=== PATIENT | male | born 1965 | race Caucasian/White ===

== ENCOUNTER → 2019-10-04 10:10 | Outpatient (CLI) | payer MEDICARE, MEDICAID, SELFPAY ==
[2019-10-04 11:00] LABS: Basophils # 0.1 K/mm3 (0-0.2); Basophils % 0.8 % (0.1-2.0); Eosinophils # 0.2 K/mm3 (0.0-0.4); Eosinophils % 2.4 % (0.1-12.0); Hematocrit 40.4 % (42.0-52.0); Hemoglobin 14.3 g/dL (14.1-18.0); Lymphocytes # 2.5 K/mm3 (0.7-4.5); Lymphocytes % 33.9 % (10-50); Mean Corpuscular HGB Conc 35.3 g/dL (31.8-35.4); Mean Corpuscular Hemoglobin 32.2 pg (27.0-31.2); Mean Corpuscular Volume 91.1 fl (80-94); Mean Platelet Volume 7.9 fl (7.4-10.4); Monocytes # 0.5 K/mm3 (0.1-1.0); Monocytes % 6.5 % (1.7-9.3); Neutrophils # 4.2 K/mm3 (1.8-7.8); Neutrophils % 56.4 % (37.0-80.0); Platelet Count 164 K/mm3 (142-424); Red Blood Count 4.44 M/mm3 (4.60-6.20); White Blood Count 7.5 K/mm3 (4.8-10.8)
[2019-10-04 12:38] LABS: Chloride 96 mmol/L (98-107); Potassium 3.8 mmoL/L (3.5-5.1); Sodium 136 mmol/L (136-145)
[2019-10-04 12:40] LABS: Alanine Aminotransferase 29 U/L (12-78); Aspartate Amino Transferase 37 U/L (17-59); Blood Urea Nitrogen 35 mg/dl (9-20); Estimated Glomerular Filt Rate 58 ml/min (>60); GFR (African American) 70 ML/MIN (>60)
[2019-10-04 12:41] LABS: Albumin Level 4.3 g/dl (3.5-5.0); Albumin/Globulin Ratio 1.6 (1.1-1.8); Alkaline Phosphatase 47 U/L (38-126); Anion Gap 16.8 mEq/L (5-15); Bilirubin,Total 0.7 mg/dl (0.2-1.3); Calcium 10.8 mg/dl (8.4-10.2); Carbon Dioxide 27 mmol/L (22.0-30.0); Chol/HDL Ratio 3.9 (1-3.5); Cholesterol 154 mg/dl (140-200); Globulin 2.7 g/dL (1.3-3.2); Glucose 106 mg/dl (74-100); HDL Cholesterol 40 mg/dl (40-60); Triglycerides 349 mg/dl (30-150); VLDL Cholesterol 70 mg/dL (0-40)
[2019-10-04 12:52] LABS: Direct LDL Cholesterol 81.19 mg/dL (100-129)
[2019-10-04 15:48] LABS: Hemoglobin A1C 6.9 % (4.0-6.0)
== END ==
PROVIDERS: Visit Provider Internal Medicine
DX: E11.42 Type 2 diabetes mellitus with diabetic polyneuropathy (principal); E11.59 Type 2 diabetes mellitus with other circulatory complications; E78.5 Hyperlipidemia, unspecified; I10 Essential (primary) hypertension; I73.9 Peripheral vascular disease, unspecified; Z79.4 Long term (current) use of insulin
CPT/HCPCS: 36415; 80053; 80061; 83036; 85025

== ENCOUNTER → 2020-06-07 11:48 | Outpatient (CLI) | payer MEDICARE, MEDICAID, SELFPAY | PROVIDERS: PCP Internal Medicine; Visit Provider Internal Medicine | DX: G47.33 Obstructive sleep apnea (adult) (pediatric) (principal); G47.00 Insomnia, unspecified; I10 Essential (primary) hypertension; R40.0 Somnolence; R06.83 Snoring; E66.9 Obesity, unspecified | CPT/HCPCS: G0399 ==

== ENCOUNTER 2021-03-17 08:07 | Emergency (ER) | payer MEDICARE, MEDICAID, SELFPAY ==
[2021-03-17] VITALS (19 sets, daily range): BP systolic 60–213; BP diastolic 31–175; PULSE 70–98; RESP 16–24; TEMP 37–37.3; O2SAT 83–98; BMI 54.9
--- NOTE | 2021-03-17 08:10 | HMH.EDGENADL ---
ED Disposition Clinical Impression: Hyperkalemia, Acute electrocardiogram changes Sepsis Qualifiers: Sepsis type: sepsis due to unspecified organism Sepsis acute organ dysfunction status: with acute organ dysfunction Severe sepsis acute organ dysfunction type: acute renal failure Acute renal failure type: unspecified Severe sepsis shock status: with septic shock Qualified Code(s): A41.9 - Sepsis, unspecified organism DKA (diabetic ketoacidosis) Qualifiers: Diabetes mellitus type: type 2 Diabetes mellitus complication detail: without coma Qualified Code(s): E11.10 - Type 2 diabetes mellitus with ketoacidosis without coma Renal failure Qualifiers: Renal failure chronicity: acute Acute renal failure type: unspecified Qualified Code(s): N17.9 - Acute kidney failure, unspecified Disposition: Xfer Short-Term Hosp Condition on Discharge: Critical Referrals: Provider,Referral, MD [Referring] - Forms: Transfer Record - ED Time of Disposition: 10:14 - Critical Care Critical Care Time: Yes Attestation: On , the high probability of a clinically significant, sudden or life threatening deterioration of the following system(s) required my full and direct attention, intervention and personal management. The time I documented below is in addition to time spent performing reported procedures but includes the following listed in this critical care notation. Total Critical Care Time: 185 Vital system(s) involved:: Circulatory Failure, Metabolic Failure, Renal Failure, Shock (Septic) My critical care processes included: Assessment & monitoring of V/S, Initial and Re-exams, Data Review/Interpretation, Coordinating Care, Medication Orders and management, Documentation Medical Decision Making - Medical Records Medical records reviewed: Yes: I reviewed the patient's medical records. - Kyrie Inquiry Pt receiving controlled substance: No Vital Signs: 03/17/21 08:08 03/17/21 09:08 03/17/21 09:14 Temperature 99.1 F Temperature Source Oral Pulse Rate 91 H 71 Pulse Rate [Right] 95 H Respiratory Rate 18 18 23 Blood Pressure 213/175 H 91/31 L Blood Pressure [Right Arm] 169/100 H Blood Pressure Mean 51 Blood Pressure Mean [Right Arm] 123 Blood Pressure Source Blood Pressure Position 02 Sat by Pulse Oximetry 97 91 L 83 L Oxygen Delivery Method Room Air Oxygen Flow Rate (LPM) 03/17/21 09:17 03/17/21 09:47 03/17/21 09:54 Temperature Temperature Source Pulse Rate 70 91 H 91 H Pulse Rate [Right] Respiratory Rate 20 22 20 Blood Pressure 96/39 L 108/42 L 108/42 L Blood Pressure [Right Arm] Blood Pressure Mean 53 Blood Pressure Mean [Right Arm] Blood Pressure Source Automatic Cuff Blood Pressure Position Supine 02 Sat by Pulse Oximetry 95 90 L Oxygen Delivery Method Nasal Cannula Room Air Oxygen Flow Rate (LPM) 03/17/21 10:23 03/17/21 10:48 03/17/21 10:50 Temperature Temperature Source Pulse Rate 93 H 95 H 96 H Pulse Rate [Right] Respiratory Rate 18 18 Blood Pressure 92/61 L 60/32 L 80/33 L Blood Pressure [Right Arm] Blood Pressure Mean 42 Blood Pressure Mean [Right Arm] Blood Pressure Source Blood Pressure Position 02 Sat by Pulse Oximetry 96 95 Oxygen Delivery Method Nasal Cannula Nasal Cannula Nasal Cannula Oxygen Flow Rate (LPM) 2 2 03/17/21 11:02 03/17/21 11:11 03/17/21 11:23 Temperature Temperature Source Pulse Rate 96 H 98 H Pulse Rate [Right] Respiratory Rate 16 Blood Pressure 99/49 L 110/39 L 109/79 L Blood Pressure [Right Arm] Blood Pressure Mean 56 59 89 Blood Pressure Mean [Right Arm] Blood Pressure Source Blood Pressure Position 02 Sat by Pulse Oximetry 97 Oxygen Delivery Method Oxygen Flow Rate (LPM) 03/17/21 11:41 03/17/21 12:01 03/17/21 12:45 Temperature Temperature Source Pulse Rate 94 H 90 Pulse Rate [Right] Respiratory Rate 18 20 22 Blood Pressure 136/93 H 107/43 L
--- NOTE | 2021-03-17 08:24 | ECG_ITS ---
APPROVED REPORT Exam: Resting ECG HR:92 bpm ECG Measurements Heart Rate 92 AXES MD 196 P 83 QRSd 108 QRS -54 QT 404 T 68 QTc 499 Conclusion Normal sinus rhythm Left axis deviation Pulmonary disease pattern Prolonged QT Abnormal ECG Electronically signed by : Roberto Maher MD 03/18/2021 11:38:56
[2021-03-17 08:45] LABS: Basophils # 0.1 K/mm3 (0-0.2); Basophils % 0.4 % (0.1-2.0); Eosinophils # 0.1 K/mm3 (0.0-0.4); Eosinophils % 0.6 % (0.1-12.0); Hematocrit 37.9 % (42.0-52.0); Hemoglobin 12.8 g/dL (14.1-18.0); Lymphocytes # 2.6 K/mm3 (0.7-4.5); Lymphocytes % 14.4 % (10-50); Mean Corpuscular HGB Conc 33.8 g/dL (31.8-35.4); Mean Corpuscular Volume 94.9 fl (80-94); Mean Platelet Volume 8.2 fl (7.4-10.4); Monocytes # 1.9 K/mm3 (0.1-1.0); Monocytes % 10.3 % (1.7-9.3); Neutrophils # 13.4 K/mm3 (1.8-7.8); Neutrophils % 74.3 % (37.0-80.0); Platelet Count 207 K/mm3 (142-424); Red Cell Distribution Width 14.1 % (11.5-17.5)
[2021-03-17 08:47] LABS: MANUAL DIFFERENTIAL MANUAL DIFFERENTIAL (MANUAL DIFF)
[2021-03-17 08:50] LABS: Chloride 90 mmol/L (98-107); Potassium 5.9 mmoL/L (3.5-5.1); Sodium 130 mmol/L (136-145)
[2021-03-17 08:52] LABS: Alanine Aminotransferase 42 U/L (12-78); Aspartate Amino Transferase 39 U/L (17-59)
[2021-03-17 08:53] LABS: Albumin Level 3.9 g/dl (3.5-5.0); Albumin/Globulin Ratio 1.4 (1.1-1.8); Alkaline Phosphatase 68 U/L (38-126); Anion Gap 34.9 mEq/L (5-15); Bilirubin,Total 1.1 mg/dl (0.2-1.3); Calcium 7.6 mg/dl (8.4-10.2); Carbon Dioxide 11 mmol/L (22.0-30.0); Globulin 2.7 g/dL (1.3-3.2); Glucose 344 mg/dl (74-100); Total Protein,Serum 6.6 g/dl (6.3-8.2)
[2021-03-17 08:57] LABS: Eosinophils % 1 % (0-3); Lymphocytes % 12 % (10-50); Monocytes % 13 % (2-9); Neutrophils % 73 % (42-76); Platelet Estimate Normal; Total Cells Counted 100
[2021-03-17 08:58] LABS: Hypochromasia 1+; Macrocytosis 1+
[2021-03-17 09:07] LABS: Blood Urea Nitrogen 117 mg/dl (9-20); Creatinine Clearance Estimated 6 mL/min (50-200); Estimated Glomerular Filt Rate 4 ml/min (>60); GFR (African American) 4 ML/MIN (>60); Lactic Acid 5.5 mmol/L (0.7-2.1); Troponin I < 0.01 ng/ml (0.00-0.034)
--- NOTE | 2021-03-17 09:10 | CT_ITS ---
PROCEDURE: CT ABDOMEN PELVIS WO CON CLINICAL INDICATION: c/o rectal abscess COMPARISON: No exams were available for comparison TECHNIQUE: Axial images obtained with sagittal and coronal reformats. All CT scans at the facility use one or more dose reduction, viz: automated exposure control, ma/kV adjustment per patient size (including targeted exams where dose is matched to indication, i.e. head), or iterative reconstruction technique. FINDINGS: LOWER THORAX: Atelectatic changes are present in the lung bases. There is mild pericardial thickening. ABDOMEN & PELVIS: Liver has a somewhat irregular contour consistent with cirrhosis. The gallbladder is distended with multiple stones. There is splenomegaly at 15 cm. The adrenal glands, pancreas, and kidneys have an unremarkable appearance. Mesenteric and retroperitoneal varices are noted. No evidence of appendicitis or diverticulitis. No evidence of perirectal abscess. Evaluation of the rectum and bowel is limited without IV and oral contrast. No acute bony anomalies. IMPRESSION: 1. No evidence of perirectal abscess. Evaluation of the bowel and solid organs is limited without IV and oral contrast. 2. 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 Cholelithiasis with distended gallbladder Dictated by: Loyd Christensen MD 03/17/2021 10:25 Loyd Christensen MD in [place] 03/17/2021 10:25
--- NOTE | 2021-03-17 09:11 | PC.NURSE ---
ER physician aware of critical labs
--- NOTE | 2021-03-17 09:14 | PC.NURSE ---
contacting [facility] per ER request
--- NOTE | 2021-03-17 09:21 | PC.NURSE ---
TERRY NI speaking with [facility] at this time
--- NOTE | 2021-03-17 09:22 | PC.NURSE ---
[facility] States they area on divert
--- NOTE | 2021-03-17 09:24 | PC.NURSE ---
contacted [facility] in [place], [facility] they are placing pts on wait list.
--- NOTE | 2021-03-17 09:25 | PC.NURSE ---
contacted [facility], bed placement staff states they are closed to all levels of care at this time .
--- NOTE | 2021-03-17 09:31 | PC.NURSE ---
Contacted [facility], waiting instrumentation designer back from them
--- NOTE | 2021-03-17 09:31 | HMH.ITSTN ---
dr thompson suggested iv and oral,patients labs are out of range, spoke to dr mc wanted scan done w/o for a quick transfer
[2021-03-17 09:37] LABS: Coronavirus 19, PCR Not Detected (NotDetected); Influenza A, PCR Not Detected (NotDetected); Influenza B, PCR Not Detected (NotDetected)
--- NOTE | 2021-03-17 09:51 | PC.NURSE ---
TERRY NI speaking with Dr. Jorgensen at [facility] at this time.
--- NOTE | 2021-03-17 09:55 | PC.NURSE ---
pt to Ct with miranda riggs and rad staff.
--- NOTE | 2021-03-17 10:16 | PC.NURSE ---
Returned from CT at this time with patient. Patient was transferred with [facility] with cardiac monitoring
--- NOTE | 2021-03-17 10:56 | PC.NURSE ---
spoke with arpita at [facility] at this time, to notify that pt ct scan has been read, this was per ER MD request per Dr. Jorgensen's request. States she is going to page Dr. Jorgensen back again to speak with ER . notified TERRY NI of the above
--- NOTE | 2021-03-17 11:07 | PC.NURSE ---
spoke with marisol again at this time at [facility], states that dr. pratt has been given the message about pt ct scan, states he is accepted the pt and does not speak with ER MD again. Marisol states she is going to work on bed placement for pt, states bed are tight and will hopefully have a bed this afternoon for pt. notified ER of the above.
--- NOTE | 2021-03-17 11:10 | ECG_ITS ---
APPROVED REPORT Exam: Resting ECG HR:194 bpm ECG Measurements Heart Rate 194 AXES QRSd 174 QRS -81 QT 218 T 86 QTc 391 Conclusion Wide QRS tachycardia with frequent premature ventricular complexes in a pattern of bigeminy Left axis deviation Right bundle branch block Abnormal ECG Electronically signed by : Roberto Maher MD 03/18/2021 11:38:53
--- NOTE | 2021-03-17 11:21 | PC.NURSE ---
contacted [facility], states they area at capacity
[2021-03-17 11:24] LABS: POC Glucose,Bedside 356 (70-110)
--- NOTE | 2021-03-17 11:33 | PC.NURSE ---
waiting on a call back from about possible transfer.
[2021-03-17 11:35] LABS: Albumin Level 4.1 g/dl (3.5-5.0); Anion Gap 34.4 mEq/L (5-15); Calcium 7.4 mg/dl (8.4-10.2); Carbon Dioxide 11 mmol/L (22.0-30.0); Chloride 90 mmol/L (98-107); Glucose 354 mg/dl (74-100); Phosphorous 12.3 mg/dl (2.5-4.5); Sodium 128 mmol/L (136-145)
--- NOTE | 2021-03-17 11:37 | PC.NURSE ---
stopped vancomycin for allow calcium to infuse
[2021-03-17 11:41] LABS: Creatinine Clearance Estimated 7 mL/min (50-200); Estimated Glomerular Filt Rate 4 ml/min (>60); GFR (African American) 4 ML/MIN (>60)
--- NOTE | 2021-03-17 11:43 | PC.NURSE ---
nicole in lab called it critical labs verified name and K 7.4 bun 114 creat 14 notified TERRY NI
[2021-03-17 11:44] LABS: Blood Urea Nitrogen 114 mg/dl (9-20); Potassium 7.4 mmoL/L (3.5-5.1)
--- NOTE | 2021-03-17 12:00 | PC.NURSE ---
contacted [facility], states they are expected discharges but no bed available at this time, call back around 2-3 pm
--- NOTE | 2021-03-17 12:05 | PC.NURSE ---
TERRY NI speaking with Dr Pearl at [facility] at this time
--- NOTE | 2021-03-17 12:37 | PC.NURSE ---
Ronnie from transfer center stated the patient was accepted but still does not have a bed placement. Ronnie requested [facility] to fax patient face sheet. Face sheet faxed at this time
[2021-03-17 12:40] LABS: Reflex Lactic Add Lactic Reflex
--- NOTE | 2021-03-17 12:45 | PC.NURSE ---
Pharmacy stated insulin and Vancomycin are compatible
[2021-03-17 12:50] LABS: ABG Base Excess -15.3 mmol/L (-2.4-2.3); ABG HCO3 11.7 mmhg (22.0-26.0); ABG Oxygen Saturation 93 % (90-100); ABG PCO2 26.4 mmhg (35.0-45.0); ABG PH 7.27 mmol/L (7.35-7.45); ABG TCO2 12.5 mmhg (23-27)
[2021-03-17 12:53] LABS: Allen's Test ACCEPTABLE; Oxygen ROOM AIR %; Source R BRACHIAL
--- NOTE | 2021-03-17 12:54 | PC.NURSE ---
ER physician aware of ABG results
--- NOTE | 2021-03-17 13:25 | PC.NURSE ---
Gave report to Karri [facility] at [facility]
[2021-03-17 13:29] LABS: Chloride 91 mmol/L (98-107); Sodium 129 mmol/L (136-145)
--- NOTE | 2021-03-17 13:31 | PC.NURSE ---
contacted [employer] to request a flight for transfer of pt.
[2021-03-17 13:32] LABS: Anion Gap 35.1 mEq/L (5-15)
[2021-03-17 13:33] LABS: Calcium 7.3 mg/dl (8.4-10.2); Glucose 334 mg/dl (74-100)
--- NOTE | 2021-03-17 13:33 | PC.NURSE ---
[employer] accepted flight, 21 min ETA plus lift off
--- NOTE | 2021-03-17 13:36 | PC.NURSE ---
FACE SHEET FAXED AGAIN PER JIN FROM [facility]
[2021-03-17 13:40] LABS: Carbon Dioxide 10 mmol/L (22.0-30.0); Creatinine Clearance Estimated 7 mL/min (50-200); Estimated Glomerular Filt Rate 4 ml/min (>60); GFR (African American) 5 ML/MIN (>60)
[2021-03-17 13:41] LABS: Blood Urea Nitrogen 126 mg/dl (9-20); Potassium 7.1 mmoL/L (3.5-5.1)
--- NOTE | 2021-03-17 13:41 | PC.NURSE ---
madi in lab called with critical results on pt K 7.1 BUN 126 Creat 13.6 Lactic acid 4.1 notified ER of results
[2021-03-17 13:42] LABS: Lactic Acid Follow Up (RFLX 1) 4.1 mmol/L (0.7-2.1)
--- NOTE | 2021-03-17 14:11 | ECG_ITS ---
APPROVED REPORT Exam: Resting ECG HR:95 bpm ECG Measurements Heart Rate 95 AXES AL 202 P 76 QRSd 110 QRS -53 QT 394 T 77 QTc 495 Conclusion Normal sinus rhythm Left axis deviation Low voltage QRS Incomplete left bundle branch block Prolonged QT Abnormal ECG Electronically signed by : Roberto Maher MD 03/18/2021 11:38:40
[2021-03-17 14:23] LABS: POC Glucose,Bedside 361 (70-110)
--- NOTE | 2021-03-17 14:25 | PC.NURSE ---
[facility] at [facility]
--- NOTE | 2021-03-17 14:54 | PC.NURSE ---
[facility] aware of paper work being left at [facility]. Paperwork will be faxed
[2021-03-17 15:23] LABS: Reflex Lactic (2 hrs) Add Lactic Reflex
== END 2021-03-17 14:48 | disposition short-term general hospital (02) ==
PROVIDERS: Emergency Provider Family Medicine; PCP Internal Medicine
DX: N17.9 Acute kidney failure, unspecified (principal); A41.9 Sepsis, unspecified organism; E11.10 Type 2 diabetes mellitus with ketoacidosis without coma; E87.5 Hyperkalemia; I10 Essential (primary) hypertension; E78.5 Hyperlipidemia, unspecified; F17.210 Nicotine dependence, cigarettes, uncomplicated; Z79.899 Other long term (current) drug therapy; F41.9 Anxiety disorder, unspecified; Z11.52 Encounter for screening for COVID-19
CPT/HCPCS: 74176; 80048; 80053; 80069; 82803; 82962; 83605; 84484; 85007; 85025; 87040; 93005; 96365; 99285; C1751; J0692; J3370; U0003

== ENCOUNTER 2021-04-26 16:30 | Emergency (ER) | payer MEDICARE, MEDICAID, SELFPAY ==
[2021-04-26] VITALS (18 sets, daily range): BP systolic 62–132; BP diastolic 26–47; PULSE 78–87; RESP 14–16; TEMP 36.7; O2SAT 91–97; BMI 47.8
--- NOTE | 2021-04-26 17:08 | HMH.EDGENADL ---
ED Disposition Clinical Impression: BRENDA (acute kidney injury) Hypotension Qualifiers: Hypotension type: unspecified hypotension type Qualified Code(s): I95.9 - Hypotension, unspecified Disposition: Xfer Short-Term Hosp Condition on Discharge: Fair Referrals: Jam Torres [Primary Care Provider] - Time of Disposition: 19:39 - Critical Care Critical Care Time: Yes Attestation: On 04/26/21, the high probability of a clinically significant, sudden or life threatening deterioration of the following system(s) required my full and direct attention, intervention and personal management. The time I documented below is in addition to time spent performing reported procedures but includes the following listed in this critical care notation. Total Critical Care Time: 35 Vital system(s) involved:: Circulatory Failure, Renal Failure My critical care processes included: Assessment & monitoring of V/S, Initial and Re-exams, Data Review/Interpretation, Coordinating Care, Medication Orders and management, Documentation Medical Decision Making - Medical Records Medical records reviewed: Yes: I reviewed the patient's medical records. - Kyrie Inquiry Pt receiving controlled substance: No Vital Signs: 04/26/21 16:31 Temperature 98.1 F Temperature Source Oral Pulse Rate [Left Radial] 82 Respiratory Rate 15 Blood Pressure [Right Arm] 78/40 L Blood Pressure Mean [Right Arm] 52 Blood Pressure Source [Right Arm] Automatic Cuff Blood Pressure Position [Right Arm] Sitting 02 Sat by Pulse Oximetry 91 L Oxygen Delivery Method Room Air - Lab Data Lab Results 04/26/21 17:00: WBC 14.8 H, RBC 4.44 L, Hgb 14.0 L, Hct 42.9, MCV 96.7 H, MCH 31.5 H, MCHC 32.6, RDW 14.2, Plt Count 310, MPV 7.7, Neut % (Auto) 66.5, Lymph % (Auto) 24.8, [place] % (Auto) 7.7, Eos % (Auto) 0.4, Baso % (Auto) 0.6, Neut # (Auto) 9.8 H, Lymph # (Auto) 3.7, [place] # (Auto) 1.1 H, Eos # (Auto) 0.1, Baso # (Auto) 0.1 04/26/21 17:00: Sodium 134 L, Potassium 6.1 H*, Chloride 91 L, Carbon Dioxide 14 L, Anion Gap 35.1 H, BUN 110 H*, Creatinine 10.70 H, Estimated Creat Clear 10, Estimated GFR 5 L*, Est GFR ( Amer) 6 L*, Glucose 201 H, Calcium 9.8, NT-Pro-B Natriuret Pep 1200 H Result diagrams: 04/26/21 17:00 04/26/21 17:00 Orders (Tests/Meds): ED MEDICATIONS Generic Name Dose Route Start Last Admin Trade Name Freq PRN Reason Stop Dose Admin Sodium Chloride 1,000 mls @ 999 mls/hr 04/26/21 18:00 Sod Chlor 0.9% 1000ml Bag IV 04/26/21 19:00 .Q1H1M PRACHI Norepinephrine Bitartrate 8 mg 258 mls @ 3.87 mls/hr 04/26/21 20:15 / Dextrose IV 05/26/21 20:14 .Q24H PRACHI Protocol 2 MCG/MIN ORDERS Category Date Time Status Rapid PCR Covid and Flu A/B Stat Lab 04/26/21 17:52 Ordered Urinalysis and Microscopic Stat Lab 04/26/21 17:52 Ordered Medical Decision Narrative: 55yo M evaluated by hypotension. Patient is in no acute distress on initial evaluation and states he feels well. He is agreeable to a modest work-up and monitoring of his blood pressure. EKG obtained and reviewed as above. Patient CBC is largely unremarkable. His metabolic panel demonstrates potassium of 6.1, patient's creatinine is over 10. Patient sent for a CT of the abdomen pelvis without contrast to rule out any urinary obstruction. Patient is receiving 1 L of normal saline. Patient's BNP is elevated at 1200 making it difficult to give him large volumes of fluid as it will only worsen his congestive heart failure. Patient will likely need dialysis and therefore have to be transferred. Staff are working on finding the patient in excepting facility/physician at this time. Case discussed with Dr. Gardner at [facility]. He accepts the patient for transfer for ICU given the patient's map and acute renal failure. Pending bed placement at this time. Started on Norepi as his map has not improved w/ fluids. General Adult HPI - General Chief complaint: PAIN State
[2021-04-26 17:22] LABS: Basophils # 0.1 K/mm3 (0-0.2); Basophils % 0.6 % (0.1-2.0); Eosinophils # 0.1 K/mm3 (0.0-0.4); Eosinophils % 0.4 % (0.1-12.0); Hematocrit 42.9 % (42.0-52.0); Lymphocytes # 3.7 K/mm3 (0.7-4.5); Lymphocytes % 24.8 % (10-50); Mean Corpuscular HGB Conc 32.6 g/dL (31.8-35.4); Mean Corpuscular Hemoglobin 31.5 pg (27.0-31.2); Mean Corpuscular Volume 96.7 fl (80-94); Mean Platelet Volume 7.7 fl (7.4-10.4); Monocytes # 1.1 K/mm3 (0.1-1.0); Monocytes % 7.7 % (1.7-9.3); Neutrophils # 9.8 K/mm3 (1.8-7.8); Neutrophils % 66.5 % (37.0-80.0); Platelet Count 310 K/mm3 (142-424); Red Blood Count 4.44 M/mm3 (4.60-6.20); Red Cell Distribution Width 14.2 % (11.5-17.5); White Blood Count 14.8 K/mm3 (4.8-10.8)
[2021-04-26 17:23] LABS: Chloride 91 mmol/L (98-107); Sodium 134 mmol/L (136-145)
[2021-04-26 17:26] LABS: Anion Gap 35.1 mEq/L (5-15); Carbon Dioxide 14 mmol/L (22.0-30.0); Creatinine Clearance Estimated 10 mL/min (50-200); Estimated Glomerular Filt Rate 5 ml/min (>60); GFR (African American) 6 ML/MIN (>60)
[2021-04-26 17:27] LABS: Calcium 9.8 mg/dl (8.4-10.2); Glucose 201 mg/dl (74-100)
[2021-04-26 17:36] LABS: NT Pro Brain Natriuretic Pep. 1200 pg/mL (0-125)
[2021-04-26 17:37] LABS: Blood Urea Nitrogen 110 mg/dl (9-20); Potassium 6.1 mmoL/L (3.5-5.1)
--- NOTE | 2021-04-26 17:39 | PC.NURSE ---
Lab called and spoke with Margie Iqbal RN to notify of labs. Potassium 6.1; BUN 110; Creatinine 10.7 MD notified of lab results.
--- NOTE | 2021-04-26 17:52 | ECG_ITS ---
APPROVED REPORT Exam: Resting ECG HR:82 bpm ECG Measurements Heart Rate 82 AXES AR 160 P 47 QRSd 96 QRS -45 QT 404 T 59 QTc 472 Conclusion Normal sinus rhythm Low voltage QRS Left anterior fascicular block Late r wave progression Abnormal ECG Electronically signed by : Roberto Maher MD 04/27/2021 07:28:57
--- NOTE | 2021-04-26 17:52 | CT_ITS ---
PROCEDURE INFORMATION: Exam: CT Abdomen And Pelvis Without Contrast Exam date and time: 04/26/2021 5:52 PM Age: 55 years old Clinical indication: Condition or disease; Kidney or ureter condition; Acute renal insufficiency; Patient HX: Renal failure, R/O obstruction TECHNIQUE: Imaging protocol: Computed tomography of the abdomen and pelvis without contrast. Radiation optimization: All CT scans at this facility use at least one of these dose optimization techniques: automated exposure control; mA and/or kV adjustment per patient size (includes targeted exams where dose is matched to clinical indication); or iterative reconstruction. COMPARISON: CT ABDOMEN PELVIS WO CON 03/17/2021 9:59 AM FINDINGS: Limitations: The lateral aspect of the right abdominal wall and peritoneum as well as right abdominal small bowel loops are incompletely imaged. Lungs: Scattered linear opacities in the visualized lung bases likely represent subsegmental atelectasis and/or scarring. There is a calcified granuloma in the left lower lobe. Liver: The liver is cirrhotic in morphology. Gallbladder and bile ducts: Numerous layering gallstones are present in the gallbladder. No biliary ductal dilatation. Pancreas: Unremarkable. Spleen: The spleen is enlarged measuring 15.5 cm. Splenic densities likely represent calcified granulomas. Adrenal glands: No adrenal nodule. Kidneys and ureters: No hydronephrosis or calculi. Stomach and bowel: The visualized bowel is unremarkable without evidence of obstruction. Appendix: The appendix is normal. Intraperitoneal space: No free air or fluid in the visualized peritoneum. Vasculature: The abdominal aorta is normal in caliber with mild atherosclerosis. Varices are present in the abdomen and pelvis. Lymph nodes: There are enlarged left inguinal lymph nodes and an enlarged right external iliac lymph node, unchanged. Unchanged lymph nodes in the region of the joce hepatis. Urinary bladder: There is bladder wall thickening with perivesicular fat stranding. Reproductive: Unremarkable as visualized. Reproductive: Unremarkable as visualized. Bones/joints: No acute fracture. There are multilevel degenerative changes of the spine. Soft tissues: There are small fat containing inguinal hernias. There are linear areas of subcutaneous emphysema within the anterior abdominal wall which may represent intravenous gas. IMPRESSION: 1. No renal calculi or hydronephrosis. 2. Cirrhosis with stigmata of portal hypertension including splenomegaly and varices.
--- NOTE | 2021-04-26 20:08 | PC.NURSE ---
Dr. Otto spoke to [facility] Dr. Gardner who has accepted patient, they will call when a bed is available
[2021-04-26 20:15] LABS: Coronavirus 19, PCR Not Detected (NotDetected); Influenza A, PCR Not Detected (NotDetected); Influenza B, PCR Not Detected (NotDetected)
--- NOTE | 2021-04-26 20:38 | PC.NURSE ---
started norepinephrine started @ 8mcg
--- NOTE | 2021-04-26 22:25 | PC.NURSE ---
multiple attempts to start 2nd iv line attempted, unsuccessful.
[2021-04-27] VITALS (79 sets, daily range): BP systolic 71–160; BP diastolic 27–123; PULSE 74–100; RESP 13–23; O2SAT 87–98
--- NOTE | 2021-04-27 00:19 | PC.NURSE ---
decreased norepinephrine gtt to 6mcg/hr
--- NOTE | 2021-04-27 02:36 | PC.NURSE ---
0145 - new IV obtained by JORI Almanzar at this time. #22g left forearm.
--- NOTE | 2021-04-27 02:46 | PC.NURSE ---
Lynnette from [place] transfer [facility] for update of bed availability
--- NOTE | 2021-04-27 05:42 | PC.NURSE ---
@ 0515 titrated Levophed down 4 mcg
--- NOTE | 2021-04-27 06:37 | PC.NURSE ---
titrated Levophed down 2 mcg
--- NOTE | 2021-04-27 07:52 | PC.NURSE ---
MEDICAL SALES CONSULTANT at attempting to obtain ultrasound guided IV access on pt
--- NOTE | 2021-04-27 07:55 | PC.NURSE ---
breakfast tray ordered for pt
[2021-04-27 08:00] LABS: Anion Gap 30.5 mEq/L (5-15); Calcium 9.3 mg/dl (8.4-10.2); Carbon Dioxide 17 mmol/L (22.0-30.0); Chloride 93 mmol/L (98-107); Creatinine Clearance Estimated 9 mL/min (50-200); Estimated Glomerular Filt Rate 5 ml/min (>60); GFR (African American) 6 ML/MIN (>60); Potassium 5.5 mmoL/L (3.5-5.1); Sodium 135 mmol/L (136-145)
[2021-04-27 08:03] LABS: Blood Urea Nitrogen 119 mg/dl (9-20)
[2021-04-27 08:04] LABS: Glucose 28 mg/dl (74-100)
--- NOTE | 2021-04-27 08:04 | PC.NURSE ---
lab called to with critical BUN and glucose on pt, name and verified notified ER , verbal order for half amp d50 obtained from Dr. Otto.
--- NOTE | 2021-04-27 08:08 | PC.NURSE ---
levophed drip stopped
--- NOTE | 2021-04-27 08:09 | PC.NURSE ---
Fidel [facility] they advised a committee would meet at 9 to discuss who needs a bed the most and would callk us back when they know something.
--- NOTE | 2021-04-27 08:10 | PC.NURSE ---
pt given a meal tray
[2021-04-27 08:18] LABS: Basophils # 0.1 K/mm3 (0-0.2); Basophils % 0.6 % (0.1-2.0); Eosinophils # 0.1 K/mm3 (0.0-0.4); Eosinophils % 0.6 % (0.1-12.0); Hematocrit 38.7 % (42.0-52.0); Hemoglobin 12.6 g/dL (14.1-18.0); Lymphocytes # 3.6 K/mm3 (0.7-4.5); Lymphocytes % 27.1 % (10-50); Mean Corpuscular HGB Conc 32.5 g/dL (31.8-35.4); Mean Corpuscular Hemoglobin 31.6 pg (27.0-31.2); Mean Corpuscular Volume 97.1 fl (80-94); Mean Platelet Volume 7.8 fl (7.4-10.4); Monocytes # 1.2 K/mm3 (0.1-1.0); Monocytes % 8.8 % (1.7-9.3); Neutrophils # 8.5 K/mm3 (1.8-7.8); Neutrophils % 62.9 % (37.0-80.0); Platelet Count 224 K/mm3 (142-424); Red Blood Count 3.99 M/mm3 (4.60-6.20); Red Cell Distribution Width 14.3 % (11.5-17.5); White Blood Count 13.4 K/mm3 (4.8-10.8)
--- NOTE | 2021-04-27 08:44 | PC.NURSE ---
spoke with Aure at [facility] at this time, she called for a pt update. States they a meeting around 11am each day to discuss pts on waiting list. States she will call back with a bed status update after that meeting. States if pt has any condition changes to please let them know.
--- NOTE | 2021-04-27 10:19 | ECG_ITS ---
APPROVED REPORT Exam: Resting ECG HR:85 bpm ECG Measurements Heart Rate 85 AXES WA 204 P 66 QRSd 100 QRS -35 QT 412 T 70 QTc 490 Conclusion Normal sinus rhythm Left axis deviation Low voltage QRS Prolonged QT Abnormal ECG Electronically signed by : Roberto Maher MD 04/27/2021 20:34:05
--- NOTE | 2021-04-27 12:47 | PC.NURSE ---
called [facility] about bed placement, they have no icu beds and have not discharged any, they will call back this afternoon with update.
--- NOTE | 2021-04-27 14:30 | PC.NURSE ---
PT PULLED OUT IV
--- NOTE | 2021-04-27 14:31 | PC.NURSE ---
LEVOPHED DRIP RESTARTED DUE TO B/P OF 71/39
--- NOTE | 2021-04-27 15:39 | PC.NURSE ---
JORI Griffith spoke with Dr. Wolfe and advsied him pt would need a central line at this time. Dr. Wolfe agreed and advised he would be in to do the procedure. Macey spoke with JORI Henriquez and advised her to come to ED to help Dr. Wolfe with procedure.
--- NOTE | 2021-04-27 16:25 | PC.NURSE ---
Dr. Wolfe at [facility] for central line placement
--- NOTE | 2021-04-27 16:47 | PC.NURSE ---
pt ludmilaet given to brother
--- NOTE | 2021-04-27 16:49 | XR_ITS ---
PROCEDURE: Chest portable CLINICAL INDICATION: Central line insertion COMPARISON: No exams were available for comparison FINDINGS: An AP portable view of the chest is very limited technically due to under penetration and malpositioning. Borderline cardiomegaly with mild prominence of the mediastinum. No large pneumothoraces apparent. No central line identified IMPRESSION: No acute finding Dictated by: Loyd Christensen MD 05/03/2021 07:44 Loyd Christensen MD in [facility] 05/03/2021 07:44
--- NOTE | 2021-04-27 17:14 | XR_ITS ---
PROCEDURE INFORMATION: Exam: XR Chest Exam date and time: 04/27/2021 5:14 PM Age: 55 years old Clinical indication: Device placement; Other: Central line placement; Patient HX: Obesity TECHNIQUE: Imaging protocol: XR of the chest. Views: 1 view. COMPARISON: CR (CHEST, CXR AP LANDSCAPE) 04/27/2021 4:49 PM FINDINGS: Limitations: Large body habitus severely attenuates image, degrading resolution. Tubes, catheters and devices: Catheter vs tubing or wire projects over the right lower chest with densely opacified 12 mm focus near the tip. No recognizable PICC is evident. Lungs: Unchanged. Pleural spaces: No pleural effusion. No pneumothorax. Heart/Mediastinum: Cardiomediastinal silouhette is unchanged. Bones/joints: No acute osseous abnormality. Soft tissues: Unremarkable. IMPRESSION: Catheter vs tubing or wire projects over the right lower chest with densely opacified 12 mm focus near the tip that is not well evaluated due to limitations detailed above. No recognizable PICC is evident.
--- NOTE | 2021-04-27 17:33 | HMH.GSCON ---
*Admission Date: 04/26/21 *Reason for consult:: Central line placement *History of present illness: Patient is a 55-year-old obese diabetic male from [place] who has had previous lower extremity amputation. He presented with hypotension and renal failure. He has been accepted as a transfer for possible dialysis. However at this point bed is unavailable. He is on Levophed drip. All IV access was lost and peripheral IV access was and able to be reestablished. Surgical consultation was obtained for central line placement. Review of Systems - Review of Systems Review of systems:: unable to obtain [facility] History I have reviewed the patient's past medical history: Yes Medical History: Reports:: Anxiety, Diabetes Mellitus Type 2, Hyperlipidemia, Hypertension, Lung Disease, Peripheral Vascular Disease Denies:: Diabetes Mellitus Type 1, Internal Pacemaker, Seizures *Have you ever received a pneumonia vaccine?: No *Have you received a flu vaccine this season?: No Other Surgeries: Yes: Colonoscopy. No: Pacemaker Amputation: Yes (Right BKA) - *Social History Smoking Status: Current every day smoker # Packs/Day (cigarettes): 1 Alcohol Intake: never Substance Use Type: denies use *Occupational Status:: unemployed *Travel in the last 8 weeks: None - Psychiatric History Pschychiatric History:: Reports:: Anxiety Family Hx:: No significant family history Meds Home Medications Medication Instructions Recorded Confirmed Type clonazepam 0.5 mg tablet 0.5 mg PO DAILY tab 07/12/18 09/02/18 History cyclobenzaprine 10 mg tablet 10 mg PO TID 07/12/18 09/02/18 History dulaglutide 0.75 mg/0.5 mL 0.75 mg SQ QWEEK 07/12/18 09/02/18 History subcutaneous pen injector furosemide 40 mg tablet 40 mg PO TID tab 07/12/18 09/02/18 History hydrocodone 10 mg-acetaminophen 1 tab PO QID PRN 07/12/18 09/02/18 History 325 mg tablet insulin glargine 100 unit/mL 10 unit SQ DAILY 07/12/18 09/02/18 History subcutaneous solution insulin lispro 100 unit/mL 15 unit SQ QHS 07/12/18 09/02/18 History subcutaneous cartridge insulin lispro protamine-lispro 15 unit SQ BID 07/12/18 09/02/18 History 100 unit/mL (75-25) subcutaneous susp lisinopril 20 mg tablet 20 mg PO DAILY 07/12/18 09/02/18 History metformin 1,000 mg tablet 1,000 mg PO BID 07/12/18 09/02/18 History pravastatin 80 mg tablet 80 mg PO DAILY 07/12/18 09/02/18 History ranitidine HCl 150 mg tablet 150 mg PO DAILY 07/12/18 09/02/18 History Sodium, Potassium,Mag Sulfates 177 ml PO DAILY 08/20/18 09/02/18 History [Suprep Bowel Prep Kit] Allergies Allergy/AdvReac Type Severity Reaction Status Date / Time No Known Allergies Allergy Verified 09/02/18 09:09 Exam Vital signs and Labs for Last 24 Hours: Temp Pulse Resp BP Pulse Ox 98.1 F 86 20 79/34 L 96 04/26/21 16:31 04/27/21 14:30 04/27/21 14:30 04/27/21 14:30 04/27/21 14:30 Laboratory Results - last 24 hr 04/26/21 17:00: Sodium 134 L, Potassium 6.1 H*, Chloride 91 L, Carbon Dioxide 14 L, Anion Gap 35.1 H, BUN 110 H*, Creatinine 10.70 H, Estimated Creat Clear 10, Estimated GFR 5 L*, Est GFR ( Amer) 6 L*, Glucose 201 H, Calcium 9.8, NT-Pro-B Natriuret Pep 1200 H 04/26/21 19:50: SARS-CoV-2 (PCR) Not detected, Influenza A Untype (PCR) Not detected, Influenza Type B (PCR) Not detected 04/27/21 07:26: WBC 13.4 H, RBC 3.99 L, Hgb 12.6 L, Hct 38.7 L, MCV 97.1 H, MCH 31.6 H, MCHC 32.5, RDW 14.3, Plt Count 224 D, MPV 7.8, Neut % (Auto) 62.9, Lymph % (Auto) 27.1, Elmore % (Auto) 8.8, Eos % (Auto) 0.6, Baso % (Auto) 0.6, Neut # (Auto) 8.5 H, Lymph # (Auto) 3.6, Elmore # (Auto) 1.2 H, Eos # (Auto) 0.1, Baso # (Auto) 0.1 04/27/21 07:26: Sodium 135 L, Potassium 5.5 H, Chloride 93 L, Carbon Dioxide 17 L, Anion Gap 30.5 H, BUN 119 H*, Creatinine 11.20 H, Estimated Creat Clear 9, Estimated GFR 5 L*, Est GFR ( Amer) 6 L*, Glucose 28 L* D, Calcium 9.3 I & O for Last 24 hours: Intake & Output 04/25/21 04/26/2104/13
[2021-04-27 17:37] LABS: POC Glucose,Bedside 198 (70-110)
--- NOTE | 2021-04-27 17:39 | HMH.OPNOTE ---
Date of procedure: 04/27/21 Pre-op Diagnosis:: Need for central venous access Post-op Diagnosis:: Same Procedure performed:: Placement of nontunneled 7 Polish triple-lumen catheter in right subclavian vein Surgeon:: Surya Wolfe MD Anesthesia: local Estimated blood loss (mL): 20 Clinical Note:: Patient is a 55-year-old obese diabetic male from [place] who has had previous lower extremity amputation. He presented with hypotension and renal failure. He has been accepted as a transfer for possible dialysis. However at this point bed is unavailable. He is on Levophed drip. All IV access was lost and peripheral IV access was and able to be reestablished. Surgical consultation was obtained for central line placement. Operative findings:: Unable to obtain access on left Operative note:: Consent was obtained and patient was positioned in Trendelenburg position. Left neck and chest were prepped and draped in the standard surgical fashion. Local anesthetic was infiltrated inferior to the left clavicle. Multiple passes were made of the 18-gauge catheter without successful cannulation of the left subclavian vein. Attempt was made using 21-gauge needle to access the left internal jugular vein. Landmarks could not be identified at this location. After multiple failed attempts at the left subclavian vein and left internal jugular vein dressing was applied. Chest x-ray was obtained to rule out pneumothorax of which none was noted. Next attention was turned to attempt out placement on the right side. Patient was reprepped and draped in the standard surgical fashion prepping the right neck and chest. Local anesthetic was infiltrated inferior to the right clavicle. Several passes were made of the 18-gauge needle and the subclavian vein was cannulated with good return of venous blood flow. Guidewire was inserted. Small incision was made at the guidewire insertion site. Subcutaneous tissues were dilated. 7 Polish triple-lumen catheter was threaded over the guidewire using Seldinger technique. Is secured to the skin at approximately the 14 cm alvarado. All ports aspirated and flushed without difficulty. Clean dry sterile dressing was applied. Chest x-ray is pending at the time of this dictation. Condition: stable Disposition: no change Complications:: None immediately apparent
--- NOTE | 2021-04-27 17:48 | PC.NURSE ---
rad at [facility] at this time for portable chest xray for central line placement confirmation
--- NOTE | 2021-04-27 18:46 | PC.NURSE ---
[facility] called regarding bed placement they advised no beds at this time, maybe tomorrow.
[2021-04-27 19:21] LABS: Anion Gap 29.5 mEq/L (5-15); Calcium 8.8 mg/dl (8.4-10.2); Carbon Dioxide 16 mmol/L (22.0-30.0); Chloride 93 mmol/L (98-107); Creatinine Clearance Estimated 9 mL/min (50-200); Estimated Glomerular Filt Rate 5 ml/min (>60); GFR (African American) 5 ML/MIN (>60); Glucose 180 mg/dl (74-100); Potassium 5.5 mmoL/L (3.5-5.1); Sodium 133 mmol/L (136-145)
[2021-04-27 19:29] LABS: Blood Urea Nitrogen 123 mg/dl (9-20)
--- NOTE | 2021-04-27 19:30 | PC.NURSE ---
Critical BUN and creat. taken per JORI Mix. Repeated and verified to Nona in lab. Maria Del Rosario reported lab values to Dr. Otto
--- NOTE | 2021-04-27 21:47 | PC.NURSE ---
Updated pt's brother Robson on pt's condition, he stated to call him if anything changed.
--- NOTE | 2021-04-27 22:05 | PC.NURSE ---
[facility] called for [facility] update on pt. Gave access center a current set of v/s and they stated they would call back around 0300 for another update as they still didn't have a bed at this time.
--- NOTE | 2021-04-27 22:48 | PC.NURSE ---
B/P 112/41. LEVAPHED INCREASED TO 6MCG/MIN
[2021-04-28] VITALS (48 sets, daily range): BP systolic 76–121; BP diastolic 31–102; PULSE 87–95; RESP 12–22; TEMP 36.6–36.8; O2SAT 84–98
--- NOTE | 2021-04-28 00:03 | PC.NURSE ---
B/P 117/55 LEVOPHED DECREASED TO 4 MCG/MIN.
--- NOTE | 2021-04-28 02:40 | PC.NURSE ---
increased levophed to 6mcg/min. bp 95/38
--- NOTE | 2021-04-28 02:55 | PC.NURSE ---
Mary from [facility] transfer center called for pt status updated. pt is still currently on waiting list
--- NOTE | 2021-04-28 03:19 | PC.NURSE ---
Levophed decreased to 4 mcg/min
[2021-04-28 03:41] LABS: POC Glucose,Bedside 243 (70-110)
--- NOTE | 2021-04-28 04:01 | PC.NURSE ---
pt placed on supplemental O2 @ 2LPM NC d/t sleep apnea
[2021-04-28 05:40] LABS: Basophils % 0.5 % (0.1-2.0); Eosinophils % 0.5 % (0.1-12.0); Hematocrit 34.7 % (42.0-52.0); Hemoglobin 11.7 g/dL (14.1-18.0); Lymphocytes # 1.7 K/mm3 (0.7-4.5); Lymphocytes % 21.5 % (10-50); Mean Corpuscular HGB Conc 33.8 g/dL (31.8-35.4); Mean Corpuscular Hemoglobin 32.8 pg (27.0-31.2); Mean Platelet Volume 7.7 fl (7.4-10.4); Monocytes # 0.8 K/mm3 (0.1-1.0); Monocytes % 10.4 % (1.7-9.3); Neutrophils # 5.2 K/mm3 (1.8-7.8); Neutrophils % 67.1 % (37.0-80.0); Platelet Count 162 K/mm3 (142-424); Red Blood Count 3.57 M/mm3 (4.60-6.20); Red Cell Distribution Width 14.1 % (11.5-17.5); White Blood Count 7.7 K/mm3 (4.8-10.8)
[2021-04-28 05:50] LABS: Alanine Aminotransferase 27 U/L (12-78); Albumin Level 3.1 g/dl (3.5-5.0); Albumin/Globulin Ratio 1.1 (1.1-1.8); Alkaline Phosphatase 60 U/L (38-126); Anion Gap 25.1 mEq/L (5-15); Aspartate Amino Transferase 36 U/L (17-59); Bilirubin,Total 0.9 mg/dl (0.2-1.3); Calcium 8.7 mg/dl (8.4-10.2); Carbon Dioxide 19 mmol/L (22.0-30.0); Chloride 96 mmol/L (98-107); Creatinine Clearance Estimated 9 mL/min (50-200); Estimated Glomerular Filt Rate 5 ml/min (>60); GFR (African American) 6 ML/MIN (>60); Globulin 2.8 g/dL (1.3-3.2); Glucose 209 mg/dl (74-100); Potassium 5.1 mmoL/L (3.5-5.1); Sodium 135 mmol/L (136-145); Total Protein,Serum 5.9 g/dl (6.3-8.2)
[2021-04-28 06:01] LABS: Blood Urea Nitrogen 125 mg/dl (9-20)
--- NOTE | 2021-04-28 06:59 | PC.NURSE ---
Bed bath given, linens changes, and pt placed in gown. Excoriation noted to buttock. 2 open areas noted to scrotum, green/ylw drainage. Thick, green discharge noted from penis. MD Brown notified and will obtain a wound culture.
--- NOTE | 2021-04-28 07:52 | PC.NURSE ---
contacted [facility] to check on status of bed assignment for pt. States no bed availability at this time, gave morning lab work updates to [facility] staff so it could be discussed at their morning meeting. Also notified them that pt has not had any urine output since being in ER
--- NOTE | 2021-04-28 08:40 | PC.NURSE ---
[facility] called requesting a SOFA score calculation on pt, called back at this time to give them Score (10).
--- NOTE | 2021-04-28 10:27 | PC.NURSE ---
pt ambulated back to bed with assistance
--- NOTE | 2021-04-28 10:47 | PC.NURSE ---
spoke with distance learning coordinator at [facility] at this time, states no ICU beds available at [facility], [facility], [facility] or [facility].
--- NOTE | 2021-04-28 10:55 | PC.NURSE ---
contacted [facility], states no ICU bed available, states they will place pt on waiting list and when a bed becomes available they will contact us back for physician acceptance.
--- NOTE | 2021-04-28 11:12 | PC.NURSE ---
contacted transfer center of [facility] - states no ICU bed available spoke with transfer center for [facility], placed pt on waiting list, states if they have a bed become available they will call us back to get pt accepted.
--- NOTE | 2021-04-28 11:15 | PC.NURSE ---
LEVOPHED DRIP DECREASED TO 4MCG
--- NOTE | 2021-04-28 11:18 | PC.NURSE ---
waiting tax services professional back from [facility] going to fax face sheet to them per their request at this time
--- NOTE | 2021-04-28 11:37 | PC.NURSE ---
Dr. Ralph speaking with Dr. Lenz with [facility]
--- NOTE | 2021-04-28 11:37 | PC.NURSE ---
[facility] in [facility] no ICU bed
--- NOTE | 2021-04-28 11:47 | PC.NURSE ---
[facility] states no ICU beds
--- NOTE | 2021-04-28 11:51 | PC.NURSE ---
[facility] patient placement staff states they are at capacity
--- NOTE | 2021-04-28 12:01 | PC.NURSE ---
TERRY NI speaking with staff at [facility] at this time
--- NOTE | 2021-04-28 12:30 | PC.NURSE ---
LEVOPHED AT 3MCG
--- NOTE | 2021-04-28 12:34 | PC.NURSE ---
Pt accepted to [facility] in ER, accepted to Dr. Lenz, the ER dr is Dr. paige oconnell
--- NOTE | 2021-04-28 13:01 | PC.NURSE ---
[place] [facility] accepted flight at this time. Notified house and caustic purification operator. Advised 20 min ETA and will notify us when they take off.
--- NOTE | 2021-04-28 13:02 | PC.NURSE ---
REPORT CALLED TO [facility] NURSE Reese [facility]
--- NOTE | 2021-04-28 13:32 | PC.NURSE ---
report to airflight
== END 2021-04-28 14:29 | disposition short-term general hospital (02) ==
PROVIDERS: Emergency Medicine; Emergency Provider Family Medicine; PCP Internal Medicine
DX: N17.9 Acute kidney failure, unspecified (principal); I95.9 Hypotension, unspecified; E11.65 Type 2 diabetes mellitus with hyperglycemia; N48.1 Balanitis; R06.09 Other forms of dyspnea; F41.9 Anxiety disorder, unspecified; E78.5 Hyperlipidemia, unspecified; E66.01 Morbid (severe) obesity due to excess calories; Z68.42 Body mass index [BMI] 45.0-49.9, adult; Z79.899 Other long term (current) drug therapy; Z20.822 Contact with and (suspected) exposure to COVID-19
CPT/HCPCS: 36415; 71045; 74176; 80048; 80053; 82962; 83880; 85025; 87070; 87077; 87186; 87205; 93005; 96365; 96367; 96375; 96376; 99285; C1751; C9803; U0003; U0005

== ENCOUNTER → 2021-06-03 16:24 | Outpatient (CLI) | payer MEDICARE, MEDICAID, SELFPAY ==
[2021-06-03 16:53] LABS: Basophils # 0.1 K/mm3 (0-0.2); Basophils % 0.7 % (0.1-2.0); Eosinophils # 0.2 K/mm3 (0.0-0.4); Eosinophils % 2.4 % (0.1-12.0); Hematocrit 39.6 % (42.0-52.0); Hemoglobin 13.6 g/dL (14.1-18.0); Lymphocytes # 2.2 K/mm3 (0.7-4.5); Lymphocytes % 29.4 % (10-50); Mean Corpuscular HGB Conc 34.2 g/dL (31.8-35.4); Mean Corpuscular Hemoglobin 32.1 pg (27.0-31.2); Mean Corpuscular Volume 93.7 fl (80-94); Mean Platelet Volume 8.6 fl (7.4-10.4); Monocytes # 0.6 K/mm3 (0.1-1.0); Monocytes % 7.9 % (1.7-9.3); Neutrophils # 4.4 K/mm3 (1.8-7.8); Neutrophils % 59.5 % (37.0-80.0); Platelet Count 169 K/mm3 (142-424); Red Blood Count 4.23 M/mm3 (4.60-6.20); Red Cell Distribution Width 14.1 % (11.5-17.5); White Blood Count 7.4 K/mm3 (4.8-10.8)
[2021-06-03 17:19] LABS: Chloride 101 mmol/L (98-107); Sodium 137 mmol/L (136-145)
[2021-06-03 17:20] LABS: Potassium 4.1 mmoL/L (3.5-5.1)
[2021-06-03 17:22] LABS: Alanine Aminotransferase 24 U/L (12-78); Albumin Level 4.2 g/dl (3.5-5.0); Albumin/Globulin Ratio 1.4 (1.1-1.8); Alkaline Phosphatase 92 U/L (38-126); Anion Gap 17.1 mEq/L (5-15); Aspartate Amino Transferase 30 U/L (17-59); Bilirubin,Total 0.6 mg/dl (0.2-1.3); Blood Urea Nitrogen 37 mg/dl (9-20); Calcium 10.6 mg/dl (8.4-10.2); Carbon Dioxide 23 mmol/L (22.0-30.0); Chol/HDL Ratio 3.4 (1-3.5); Cholesterol 151 mg/dl (140-200); Estimated Glomerular Filt Rate 49 ml/min (>60); GFR (African American) 59 ML/MIN (>60); Globulin 3.1 g/dL (1.3-3.2); Glucose 158 mg/dl (74-100); HDL Cholesterol 45 mg/dl (40-60); Total Protein,Serum 7.3 g/dl (6.3-8.2); Triglycerides 229 mg/dl (30-150); VLDL Cholesterol 46 mg/dL (0-40)
[2021-06-03 17:34] LABS: Direct LDL Cholesterol 75.11 mg/dL (100-129)
[2021-06-03 19:59] LABS: Hemoglobin A1C 7.5 % (4.0-6.0)
== END ==
PROVIDERS: Visit Provider Internal Medicine
DX: E11.59 Type 2 diabetes mellitus with other circulatory complications (principal); I10 Essential (primary) hypertension; E78.5 Hyperlipidemia, unspecified; R31.9 Hematuria, unspecified; N19 Unspecified kidney failure; N39.0 Urinary tract infection, site not specified; Z79.4 Long term (current) use of insulin
CPT/HCPCS: 80053; 80061; 83036; 85025; 87086

== ENCOUNTER → 2021-09-30 16:27 | Outpatient (CLI) | payer MEDICARE, MEDICAID, SELFPAY ==
[2021-09-30 17:06] LABS: Basophils # 0.1 K/mm3 (0-0.2); Basophils % 0.6 % (0.1-2.0); Eosinophils # 0.1 K/mm3 (0.0-0.4); Hematocrit 38.3 % (42.0-52.0); Lymphocytes # 1.8 K/mm3 (0.7-4.5); Lymphocytes % 20.5 % (10-50); Mean Corpuscular Volume 91.1 fl (80-94); Mean Platelet Volume 7.6 fl (7.4-10.4); Monocytes # 0.6 K/mm3 (0.1-1.0); Monocytes % 6.5 % (1.7-9.3); Neutrophils # 6.1 K/mm3 (1.8-7.8); Neutrophils % 71.4 % (37.0-80.0); Platelet Count 171 K/mm3 (142-424); Red Blood Count 4.21 M/mm3 (4.60-6.20); Red Cell Distribution Width 13.3 % (11.5-17.5); White Blood Count 8.6 K/mm3 (4.8-10.8)
[2021-09-30 17:31] LABS: Hemoglobin A1C 7.9 % (4.0-6.0)
[2021-09-30 18:27] LABS: Alanine Aminotransferase 26 U/L (12-78); Albumin Level 4.7 g/dl (3.5-5.0); Albumin/Globulin Ratio 1.6 (1.1-1.8); Alkaline Phosphatase 59 U/L (38-126); Anion Gap 14.9 mEq/L (5-15); Aspartate Amino Transferase 36 U/L (17-59); Bilirubin,Total 0.8 mg/dl (0.2-1.3); Blood Urea Nitrogen 66 mg/dl (9-20); Calcium 10.9 mg/dl (8.4-10.2); Carbon Dioxide 24 mmol/L (22.0-30.0); Chloride 103 mmol/L (98-107); Chol/HDL Ratio 3.4 (1-3.5); Cholesterol 134 mg/dl (140-200); Estimated Glomerular Filt Rate 30 ml/min (>60); GFR (African American) 36 ML/MIN (>60); Globulin 2.9 g/dL (1.3-3.2); Glucose 66 mg/dl (74-100); HDL Cholesterol 39 mg/dl (40-60); Potassium 4.9 mmoL/L (3.5-5.1); Sodium 137 mmol/L (136-145); Total Protein,Serum 7.6 g/dl (6.3-8.2); Triglycerides 198 mg/dl (30-150); VLDL Cholesterol 40 mg/dL (0-40)
[2021-09-30 18:38] LABS: Direct LDL Cholesterol 67.09 mg/dL (100-129)
== END ==
PROVIDERS: Visit Provider Internal Medicine
DX: E11.42 Type 2 diabetes mellitus with diabetic polyneuropathy (principal); E11.59 Type 2 diabetes mellitus with other circulatory complications; I73.9 Peripheral vascular disease, unspecified; I10 Essential (primary) hypertension; E78.5 Hyperlipidemia, unspecified; N39.0 Urinary tract infection, site not specified; Z79.4 Long term (current) use of insulin
CPT/HCPCS: 80053; 80061; 83036; 85025; 87086

== ENCOUNTER → 2021-10-06 09:31 | Outpatient (CLI) | payer MEDICARE, MEDICAID, SELFPAY ==
--- NOTE | 2021-10-06 09:34 | US_ITS ---
FINAL REPORT CLINICAL HISTORY: ELEVATED KIDNEY FUNCTION FINDINGS: RENAL ULTRASOUND Ultrasound images of the kidneys were obtained. Limited images of the liver parenchyma demonstrates normal echogenicity. The right kidney measures 12.0 cm in length. It is normal echogenicity. There is no hydronephrosis. The left kidney measures 11.4 cm in length. It is normal echogenicity. There is no hydronephrosis. There is mild prominence of the left collecting system. The spleen is enlarged measuring 14.4 cm. IMPRESSION: Splenomegaly. Mild prominence of the left collecting system. Reviewed, Interpreted and Dictated by Dillan Gonsalves MD Transcribed by Ashleigh Fisher Authenticated by Dillan Gonsalves MD on 10/06/2021 01:57:14 PM [facility]
--- NOTE | 2021-10-06 09:34 | US_ITS ---
FINAL REPORT CLINICAL HISTORY: ELEVATED KIDNEY FUNCTION-- urinary retention FINDINGS: Sonographic images of the bladder were obtained. Prevoid volume measures 1481 mL. Postvoid volume measures 115 mL. IMPRESSION: Post void residual is identified. Reviewed, Interpreted and Dictated by Dillan Gonsalves MD Transcribed by Ashleigh Fisher Authenticated by Dillan Gonsalves MD on 10/06/2021 01:57:16 PM [facility]
== END ==
PROVIDERS: PCP Internal Medicine; Visit Provider Internal Medicine
DX: R94.4 Abnormal results of kidney function studies (principal)
CPT/HCPCS: 76770; 76857

== ENCOUNTER → 2021-12-30 16:23 | Outpatient (CLI) | payer MEDICARE, MEDICAID, SELFPAY ==
[2021-12-30 16:57] LABS: Microalbumin/Creatinine Ratio 13.8
[2021-12-30 17:08] LABS: Creatinine,Urine Random 50 mg/dL (Not Estab.)
== END ==
PROVIDERS: PCP Internal Medicine; Visit Provider Internal Medicine
DX: E11.42 Type 2 diabetes mellitus with diabetic polyneuropathy (principal); E11.59 Type 2 diabetes mellitus with other circulatory complications; I10 Essential (primary) hypertension; R60.9 Edema, unspecified; Z79.4 Long term (current) use of insulin
CPT/HCPCS: 82043; 82570

== ENCOUNTER → 2022-02-21 11:37 | Outpatient (CLI) | payer MEDICARE, MEDICAID, SELFPAY | PROVIDERS: PCP Internal Medicine; Visit Provider Internal Medicine | DX: L08.9 Local infection of the skin and subcutaneous tissue, unspecified (principal); L72.3 Sebaceous cyst; B95.7 Other staphylococcus as the cause of diseases classified elsewhere | CPT/HCPCS: 87070; 87077; 87186; 87205 ==

== ENCOUNTER → 2022-03-31 12:15 | Outpatient (CLI) | payer MEDICARE, MEDICAID, SELFPAY ==
[2022-03-31 12:58] LABS: Basophils # 0.1 K/mm3 (0-0.2); Basophils % 0.8 % (0.1-2.0); Eosinophils # 0.1 K/mm3 (0.0-0.4); Eosinophils % 1.7 % (0.1-12.0); Hematocrit 32.1 % (42.0-52.0); Hemoglobin 10.7 g/dL (14.1-18.0); Lymphocytes # 1.8 K/mm3 (0.7-4.5); Lymphocytes % 31.2 % (10-50); Mean Corpuscular HGB Conc 33.2 g/dL (31.8-35.4); Mean Corpuscular Hemoglobin 31.7 pg (27.0-31.2); Mean Corpuscular Volume 95.6 fl (80-94); Monocytes # 0.3 K/mm3 (0.1-1.0); Monocytes % 5.7 % (1.7-9.3); Neutrophils # 3.6 K/mm3 (1.8-7.8); Neutrophils % 60.6 % (37.0-80.0); Platelet Count 129 K/mm3 (142-424); Red Blood Count 3.36 M/mm3 (4.60-6.20); White Blood Count 5.9 K/mm3 (4.8-10.8)
[2022-03-31 13:21] LABS: Alanine Aminotransferase 15 U/L (12-78); Albumin/Globulin Ratio 1.5 (1.1-1.8); Alkaline Phosphatase 89 U/L (38-126); Anion Gap 15.5 mEq/L (5-15); Aspartate Amino Transferase 20 U/L (17-59); Bilirubin,Total 0.3 mg/dl (0.2-1.3); Calcium 9.4 mg/dl (8.4-10.2); Carbon Dioxide 23 mmol/L (22.0-30.0); Chloride 103 mmol/L (98-107); Chol/HDL Ratio 4.6 (1-3.5); Cholesterol 125 mg/dl (140-200); Estimated Glomerular Filt Rate 17 ml/min (>60); GFR (African American) 20 ML/MIN (>60); Globulin 2.7 g/dL (1.3-3.2); Glucose 146 mg/dl (74-100); HDL Cholesterol 27 mg/dl (40-60); Potassium 4.5 mmoL/L (3.5-5.1); Sodium 137 mmol/L (136-145); Total Protein,Serum 6.7 g/dl (6.3-8.2); Triglycerides 273 mg/dl (30-150); VLDL Cholesterol 55 mg/dL (0-40)
[2022-03-31 13:51] LABS: Prostate Specific Ag Screen 0.4 ng/ml (0.0-4.0)
[2022-03-31 14:04] LABS: Blood Urea Nitrogen 83 mg/dl (9-20)
[2022-04-02 08:31] LABS: Direct LDL Cholesterol 49 mg/dL (100-129)
== END ==
PROVIDERS: PCP Internal Medicine; Visit Provider Internal Medicine
DX: I10 Essential (primary) hypertension (principal); E11.42 Type 2 diabetes mellitus with diabetic polyneuropathy; E11.59 Type 2 diabetes mellitus with other circulatory complications; E11.621 Type 2 diabetes mellitus with foot ulcer; I73.9 Peripheral vascular disease, unspecified; E78.5 Hyperlipidemia, unspecified; Z79.4 Long term (current) use of insulin; Z12.5 Encounter for screening for malignant neoplasm of prostate
CPT/HCPCS: 80053; 80061; 85025; G0103

== ENCOUNTER → 2022-04-11 12:59 | Outpatient (CLI) | payer MEDICARE, MEDICAID, SELFPAY ==
--- NOTE | 2022-04-11 13:03 | US_ITS ---
FINAL REPORT CLINICAL HISTORY: ELEVATED KIDNEY FUNCTION,ANEMIA; obesity FINDINGS: Sonographic images were obtained of the bladder. On the filled views the bladder measures 16.0 x 9.7 x 8.6 cm corresponding with bladder volume of 693 mL. On the postvoid views the bladder measures 8.3 x 4.4 x 1.9 cm corresponding with bladder volume of 37 mL. No mass identified. IMPRESSION: Postvoid residual of 37 mL. Reviewed, Interpreted and Dictated by Surya Valdez III, MD Transcribed by Cass Mares Authenticated and [facility]
--- NOTE | 2022-04-11 13:03 | US_ITS ---
FINAL REPORT TECHNIQUE: Ultrasound images of the kidneys were obtained. CLINICAL HISTORY: ELEVATED KIDNEY FUNCTION,ANEMIA; obesity FINDINGS: US RETROPERITONEAL The right kidney measures 13.9 cm in length. It is normal in echogenicity. There is no hydronephrosis. The left kidney measures 11.3 cm in length. It is normal in echogenicity. There is no hydronephrosis. The spleen is enlarged measuring 15 cm in length. There are multiple gallstones in the gallbladder. IMPRESSION: Splenomegaly and multiple gallstones in the gallbladder. Otherwise unremarkable renal exam. Reviewed, Interpreted and Dictated by Surya Valdez III, MD Transcribed by Cass Mares Authenticated and [facility]
[2022-04-11 15:21] LABS: Reticulocyte % (Auto) 2.9 % (0.9-3.2)
[2022-04-11 16:33] LABS: Vitamin B12 458 pg/mL (239-931)
[2022-04-11 19:06] LABS: Iron 75 ug/dL (49-181)
[2022-04-11 19:15] LABS: Total Iron Binding Capacity 269 ug/dL (261-462)
== END ==
PROVIDERS: PCP Internal Medicine; Visit Provider Internal Medicine
DX: D64.9 Anemia, unspecified (principal); R94.4 Abnormal results of kidney function studies
CPT/HCPCS: 36415; 76770; 76857; 82607; 83540; 83550; 85044

== ENCOUNTER → 2022-04-13 14:26 | Outpatient (CLI) | payer MEDICARE, MEDICAID, SELFPAY ==
[2022-04-13 14:32] LABS: Microscopic, Urine URINE MICROSCOPIC (MICROSCOPIC)
[2022-04-13 16:34] LABS: Hematocrit 31.1 % (42.0-52.0); Hemoglobin 10.1 g/dL (14.1-18.0); Mean Corpuscular HGB Conc 32.6 g/dL (31.8-35.4); Mean Corpuscular Hemoglobin 31.5 pg (27.0-31.2); Mean Corpuscular Volume 96.6 fl (80-94); Platelet Count 129 K/mm3 (142-424); Red Blood Count 3.22 M/mm3 (4.60-6.20); Red Cell Distribution Width 13.3 % (11.5-17.5); White Blood Count 5.1 K/mm3 (4.8-10.8)
[2022-04-13 16:42] LABS: Appearance,Urine CLOUDY (Clear); Bilirubin,Urine Negative (Negative); Blood, Urine 1+ (Negative); Color,Urine YELLOW (Yellow); Glucose,Urine (UA) Negative (Negative); Ketones,Urine Negative (Negative); Leukocyte Esterase,Urine 2+ (Negative); Nitrate,Urine Negative (Negative); Protein,Urine Negative (Negative); Specific Gravity, Urine 1.015 (1.005-1.030); Urobilinogen,Urine 0.2 EU/dl (0.2)
[2022-04-13 17:00] LABS: Albumin Level 3.9 g/dl (3.5-5.0); Anion Gap 15.1 mEq/L (5-15); Blood Urea Nitrogen 70 mg/dl (9-20); Calcium 8.8 mg/dl (8.4-10.2); Carbon Dioxide 25 mmol/L (22.0-30.0); Chloride 102 mmol/L (98-107); Estimated Glomerular Filt Rate 16 ml/min (>60); GFR (African American) 19 ML/MIN (>60); Glucose 106 mg/dl (74-100); Phosphorous 5.3 mg/dl (2.5-4.5); Potassium 4.1 mmoL/L (3.5-5.1); Sodium 138 mmol/L (136-145)
[2022-04-13 17:10] LABS: Creatinine,Urine Random 78 mg/dL (Not Estab.)
[2022-04-13 17:16] LABS: Bacteria,Urine 2+ /lpf; WBC,Urine TNTC #/hpf (0-3)
== END ==
PROVIDERS: PCP Internal Medicine; Visit Provider Internal Medicine Nephrology
DX: N17.9 Acute kidney failure, unspecified (principal); B95.7 Other staphylococcus as the cause of diseases classified elsewhere; R82.90 Unspecified abnormal findings in urine
CPT/HCPCS: 36415; 80069; 81001; 82570; 84155; 85014; 85018; 85048; 85049; 87086; 87088; 87186

== ENCOUNTER → 2022-05-15 08:34 | Outpatient (CLI) | payer MEDICARE, MEDICAID, SELFPAY ==
[2022-05-15 08:59] LABS: Microscopic, Urine URINE MICROSCOPIC (MICROSCOPIC)
[2022-05-15 10:01] LABS: Hematocrit 31.7 % (42.0-52.0); Hemoglobin 10.7 g/dL (14.1-18.0); Mean Corpuscular HGB Conc 33.8 g/dL (31.8-35.4); Mean Corpuscular Hemoglobin 32.6 pg (27.0-31.2); Mean Corpuscular Volume 96.5 fl (80-94); Platelet Count 109 K/mm3 (142-424); Red Blood Count 3.28 M/mm3 (4.60-6.20); Red Cell Distribution Width 13.4 % (11.5-17.5); White Blood Count 7.3 K/mm3 (4.8-10.8)
[2022-05-15 10:24] LABS: Appearance,Urine CLOUDY (Clear); Bilirubin,Urine Negative (Negative); Blood, Urine TRACE-I (Negative); Color,Urine YELLOW (Yellow); Glucose,Urine (UA) 1+ (Negative); Ketones,Urine Negative (Negative); Leukocyte Esterase,Urine 2+ (Negative); Nitrate,Urine Negative (Negative); PH,Urine 5.5 (5.0-8.5); Protein,Urine Negative (Negative); Urobilinogen,Urine 0.2 EU/dl (0.2)
[2022-05-15 10:25] LABS: Chloride 98 mmol/L (98-107)
[2022-05-15 10:26] LABS: Sodium 134 mmol/L (136-145)
[2022-05-15 10:28] LABS: Blood Urea Nitrogen 65 mg/dl (9-20); Estimated Glomerular Filt Rate 16 ml/min (>60); GFR (African American) 19 ML/MIN (>60)
[2022-05-15 10:29] LABS: Calcium 8.2 mg/dl (8.4-10.2); Carbon Dioxide 20 mmol/L (22.0-30.0); Glucose 267 mg/dl (74-100); Phosphorous 5.2 mg/dl (2.5-4.5)
[2022-05-15 10:32] LABS: WBC,Urine 20-50 #/hpf (0-3)
[2022-05-15 10:49] LABS: Creatinine,Urine Random 72 mg/dL (Not Estab.)
== END ==
PROVIDERS: PCP Internal Medicine; Visit Provider Internal Medicine Nephrology
DX: N17.9 Acute kidney failure, unspecified (principal); R82.90 Unspecified abnormal findings in urine
CPT/HCPCS: 36415; 80069; 81001; 82570; 84155; 85014; 85018; 85048; 85049; 87086

== ENCOUNTER → 2022-05-18 16:37 | Outpatient (CLI) | payer MEDICARE, MEDICAID, SELFPAY ==
[2022-05-18 17:36] LABS: Potassium 4.4 mmoL/L (3.5-5.1)
== END ==
PROVIDERS: PCP Internal Medicine; Visit Provider Internal Medicine Nephrology
DX: E87.5 Hyperkalemia (principal)
CPT/HCPCS: 36415; 84132

== ENCOUNTER → 2022-07-08 08:17 | Outpatient (CLI) | payer MEDICARE, MEDICAID, SELFPAY ==
[2022-07-08 08:25] LABS: Microscopic, Urine URINE MICROSCOPIC (MICROSCOPIC)
[2022-07-08 09:08] LABS: Hematocrit 31.5 % (42.0-52.0); Hemoglobin 10.9 g/dL (14.1-18.0); Mean Corpuscular HGB Conc 34.6 g/dL (31.8-35.4); Mean Corpuscular Hemoglobin 31.8 pg (27.0-31.2); Mean Corpuscular Volume 91.9 fl (80-94); Platelet Count 129 K/mm3 (142-424); Red Blood Count 3.42 M/mm3 (4.60-6.20); White Blood Count 6.4 K/mm3 (4.8-10.8)
[2022-07-08 10:22] LABS: Chloride 103 mmol/L (98-107)
[2022-07-08 10:23] LABS: Albumin Level 4.2 g/dl (3.5-5.0); Potassium 4.7 mmoL/L (3.5-5.1); Sodium 137 mmol/L (136-145)
[2022-07-08 10:25] LABS: Blood Urea Nitrogen 70 mg/dl (9-20); Estimated Glomerular Filt Rate 22 ml/min (>60); GFR (African American) 26 ML/MIN (>60)
[2022-07-08 10:26] LABS: Anion Gap 14.7 mEq/L (5-15); Calcium 9.9 mg/dl (8.4-10.2); Carbon Dioxide 24 mmol/L (22.0-30.0); Glucose 177 mg/dl (74-100); Phosphorous 3.1 mg/dl (2.5-4.5)
[2022-07-08 10:47] LABS: Appearance,Urine SL CLOUDY (Clear); Bilirubin,Urine Negative (Negative); Blood, Urine 2+ (Negative); Color,Urine YELLOW (Yellow); Glucose,Urine (UA) TRACE (Negative); Ketones,Urine Negative (Negative); Leukocyte Esterase,Urine 2+ (Negative); Nitrate,Urine Negative (Negative); PH,Urine 5.5 (5.0-8.5); Protein,Urine Negative (Negative); Specific Gravity, Urine 1.015 (1.005-1.030); Urobilinogen,Urine 0.2 EU/dl (0.2)
[2022-07-08 11:01] LABS: Creatinine,Urine Random 72 mg/dL (Not Estab.)
[2022-07-08 11:40] LABS: Bacteria,Urine Trace /lpf; Squamous Epithelial Cell,Urine Occasional #/hpf (0-5); WBC,Urine 20-50 #/hpf (0-3)
== END ==
PROVIDERS: PCP Internal Medicine; Visit Provider Internal Medicine Nephrology
DX: N18.4 Chronic kidney disease, stage 4 (severe) (principal); R82.90 Unspecified abnormal findings in urine
CPT/HCPCS: 36415; 80069; 81001; 82570; 84155; 85014; 85018; 85048; 85049; 87086

== ENCOUNTER → 2022-07-13 16:00 | Outpatient (POV) | payer MEDICARE, MEDICAID, SELFPAY | PROVIDERS: Visit Provider Internal Medicine Nephrology | DX: Z00.00 Encounter for general adult medical examination without abnormal findings (principal) ==

== ENCOUNTER → 2022-09-22 08:42 | Outpatient (CLI) | payer MEDICARE, MEDICAID, SELFPAY ==
[2022-09-22 08:53] LABS: Microscopic, Urine URINE MICROSCOPIC (MICROSCOPIC)
[2022-09-22 09:28] LABS: Appearance,Urine CLEAR (Clear); Bilirubin,Urine Negative (Negative); Blood, Urine Negative (Negative); Color,Urine YELLOW (Yellow); Glucose,Urine (UA) Negative (Negative); Ketones,Urine Negative (Negative); Leukocyte Esterase,Urine TRACE (Negative); Nitrate,Urine POSITIVE (Negative); PH,Urine 5.5 (5.0-8.5); Protein,Urine Negative (Negative); Urobilinogen,Urine 0.2 EU/dl (0.2)
[2022-09-22 09:44] LABS: Basophils # 0.1 K/mm3 (0-0.2); Basophils % 0.8 % (0.1-2.0); Eosinophils # 0.1 K/mm3 (0.0-0.4); Hematocrit 32.5 % (42.0-52.0); Hemoglobin 11.2 g/dL (14.1-18.0); Lymphocytes # 1.5 K/mm3 (0.7-4.5); Lymphocytes % 25.5 % (10-50); Mean Corpuscular HGB Conc 34.5 g/dL (31.8-35.4); Mean Corpuscular Hemoglobin 31.7 pg (27.0-31.2); Mean Corpuscular Volume 91.9 fl (80-94); Mean Platelet Volume 8.7 fl (7.4-10.4); Monocytes # 0.4 K/mm3 (0.1-1.0); Monocytes % 7.3 % (1.7-9.3); Neutrophils # 3.8 K/mm3 (1.8-7.8); Neutrophils % 64.4 % (37.0-80.0); Platelet Count 121 K/mm3 (142-424); Red Blood Count 3.54 M/mm3 (4.60-6.20); Red Cell Distribution Width 13.3 % (11.5-17.5); White Blood Count 5.9 K/mm3 (4.8-10.8)
[2022-09-22 09:54] LABS: WBC,Urine Occasional #/hpf (0-3)
[2022-09-22 09:55] LABS: Bacteria,Urine Trace /lpf; Squamous Epithelial Cell,Urine Occasional #/hpf (0-5)
[2022-09-22 10:04] LABS: Creatinine,Urine Random 67 mg/dL (Not Estab.)
[2022-09-22 10:20] LABS: Albumin Level 4.1 g/dl (3.5-5.0); Blood Urea Nitrogen 72 mg/dl (9-20); Calcium 8.7 mg/dl (8.4-10.2); Carbon Dioxide 18 mmol/L (22.0-30.0); Chloride 102 mmol/L (98-107); Estimated Glomerular Filt Rate 26 ml/min (>60); GFR (African American) 31 ML/MIN (>60); Glucose 316 mg/dl (74-100); Phosphorous 4.6 mg/dl (2.5-4.5); Sodium 131 mmol/L (136-145)
== END ==
PROVIDERS: PCP Internal Medicine; Visit Provider Internal Medicine Nephrology
DX: N18.4 Chronic kidney disease, stage 4 (severe) (principal)
CPT/HCPCS: 36415; 80069; 81001; 82570; 84155; 85025

== ENCOUNTER → 2022-11-20 12:46 | Outpatient (CLI) | payer MEDICARE, MEDICAID, SELFPAY ==
[2022-11-20 15:23] LABS: Basophils % 0.4 % (0.1-2.0); Eosinophils # 0.1 K/mm3 (0.0-0.4); Eosinophils % 1.8 % (0.1-12.0); Hemoglobin 10.5 g/dL (14.1-18.0); Lymphocytes # 1.2 K/mm3 (0.7-4.5); Lymphocytes % 27.2 % (10-50); Mean Corpuscular HGB Conc 32.7 g/dL (31.8-35.4); Mean Corpuscular Volume 94.8 fl (80-94); Mean Platelet Volume 7.9 fl (7.4-10.4); Monocytes # 0.3 K/mm3 (0.1-1.0); Monocytes % 7.4 % (1.7-9.3); Neutrophils # 2.8 K/mm3 (1.8-7.8); Neutrophils % 63.2 % (37.0-80.0); Platelet Count 158 K/mm3 (142-424); Red Blood Count 3.38 M/mm3 (4.60-6.20); Red Cell Distribution Width 14.6 % (11.5-17.5); White Blood Count 4.4 K/mm3 (4.8-10.8)
[2022-11-20 16:34] LABS: Chloride 102 mmol/L (98-107); Sodium 138 mmol/L (136-145)
[2022-11-20 16:37] LABS: Alanine Aminotransferase 13 U/L (12-78); Albumin Level 3.5 g/dl (3.5-5.0); Albumin/Globulin Ratio 1.3 (1.1-1.8); Alkaline Phosphatase 111 U/L (38-126); Aspartate Amino Transferase 20 U/L (17-59); Bilirubin,Total 0.7 mg/dl (0.2-1.3); Blood Urea Nitrogen 32 mg/dl (9-20); Carbon Dioxide 28 mmol/L (22.0-30.0); Estimated Glomerular Filt Rate 53 ml/min (>60); GFR (African American) 64 ML/MIN (>60); Globulin 2.8 g/dL (1.3-3.2); Total Protein,Serum 6.3 g/dl (6.3-8.2)
[2022-11-20 17:16] LABS: Glucose 42 mg/dl (74-100)
== END ==
PROVIDERS: PCP Internal Medicine; Visit Provider Internal Medicine
DX: E11.42 Type 2 diabetes mellitus with diabetic polyneuropathy (principal); E11.59 Type 2 diabetes mellitus with other circulatory complications; I10 Essential (primary) hypertension; N19 Unspecified kidney failure; J44.9 Chronic obstructive pulmonary disease, unspecified; I73.9 Peripheral vascular disease, unspecified; Z79.4 Long term (current) use of insulin
CPT/HCPCS: 80053; 85025

== ENCOUNTER → 2022-12-04 13:49 | Outpatient (CLI) | payer MEDICARE, MEDICAID, SELFPAY ==
[2022-12-04 19:05] LABS: Blood Urea Nitrogen 23 mg/dl (9-20); Calcium 8.4 mg/dl (8.4-10.2); Carbon Dioxide 29 mmol/L (22.0-30.0); Chloride 102 mmol/L (98-107); Estimated Glomerular Filt Rate 53 ml/min (>60); GFR (African American) 64 ML/MIN (>60); Glucose 81 mg/dl (74-100); Magnesium 1.5 mg/dl (1.6-2.3); Sodium 139 mmol/L (136-145)
== END ==
PROVIDERS: PCP Internal Medicine; Visit Provider Internal Medicine
DX: I10 Essential (primary) hypertension (principal); E11.42 Type 2 diabetes mellitus with diabetic polyneuropathy; E11.49 Type 2 diabetes mellitus with other diabetic neurological complication; I73.9 Peripheral vascular disease, unspecified; R60.9 Edema, unspecified; N19 Unspecified kidney failure; Z79.4 Long term (current) use of insulin
CPT/HCPCS: 80048; 83735

== ENCOUNTER 2023-10-31 16:38 | Outpatient (CLI) | payer MEDICARE, MEDICAID, SELFPAY ==
[2023-10-31 17:24] LABS: Basophils # 0.1 K/mm3 (0-0.2); Basophils % 1.2 % (0.1-2.0); Eosinophils # 0.1 K/mm3 (0.0-0.4); Eosinophils % 1.8 % (0.1-12.0); Hematocrit 42.2 % (42.0-52.0); Hemoglobin 14.3 g/dL (14.1-18.0); Lymphocytes # 1.5 K/mm3 (0.7-4.5); Lymphocytes % 20.8 % (10-50); Mean Corpuscular HGB Conc 33.8 g/dL (31.8-35.4); Mean Corpuscular Hemoglobin 27.6 pg (27.0-31.2); Mean Corpuscular Volume 81.7 fl (80-94); Mean Platelet Volume 8.1 fl (7.4-10.4); Monocytes # 0.6 K/mm3 (0.1-1.0); Monocytes % 7.8 % (1.7-9.3); Neutrophils # 4.9 K/mm3 (1.8-7.8); Neutrophils % 68.3 % (37.0-80.0); Platelet Count 139 K/mm3 (142-424); Red Blood Count 5.16 M/mm3 (4.60-6.20); Red Cell Distribution Width 19.4 % (11.5-17.5); White Blood Count 7.1 K/mm3 (4.8-10.8)
[2023-10-31 17:44] LABS: Chloride 104 mmol/L (98-107); Potassium 4.4 mmoL/L (3.5-5.1); Sodium 133 mmol/L (136-145)
[2023-10-31 17:47] LABS: Alanine Aminotransferase 24 U/L (12-78); Albumin Level 4.6 g/dl (3.5-5.0); Albumin/Globulin Ratio 1.4 (1.1-1.8); Alkaline Phosphatase 90 U/L (38-126); Anion Gap 12.4 mEq/L (5-15); Aspartate Amino Transferase 35 U/L (17-59); Bilirubin,Total 1.7 mg/dl (0.2-1.3); Blood Urea Nitrogen 25 mg/dl (9-20); Carbon Dioxide 21 mmol/L (22.0-30.0); Cholesterol 217 mg/dl (140-200); Estimated Glomerular Filt Rate 63 ml/min (>60); GFR (African American) 76 ML/MIN (>60); Globulin 3.3 g/dL (1.3-3.2); Total Protein,Serum 7.9 g/dl (6.3-8.2); Triglycerides 80 mg/dl (30-150); VLDL Cholesterol 16 mg/dL (0-40)
[2023-10-31 17:48] LABS: Calcium 10.4 mg/dl (8.4-10.2); Chol/HDL Ratio 3.4 (1-3.5); Glucose 72 mg/dl (74-100); HDL Cholesterol 63 mg/dl (40-60)
[2023-10-31 18:07] LABS: Direct LDL Cholesterol 101.72 mg/dL (100-129)
== END 2023-10-31 23:59 ==
LOC: LAB.DROPOF 16:39
PROVIDERS: PCP Internal Medicine; Visit Provider Internal Medicine
DX: E11.42 Type 2 diabetes mellitus with diabetic polyneuropathy (principal); E11.59 Type 2 diabetes mellitus with other circulatory complications; I73.9 Peripheral vascular disease, unspecified; J44.9 Chronic obstructive pulmonary disease, unspecified; I48.0 Paroxysmal atrial fibrillation; I50.32 Chronic diastolic (congestive) heart failure; N19 Unspecified kidney failure; R79.89 Other specified abnormal findings of blood chemistry
CPT/HCPCS: 80053; 80061; 85025

== ENCOUNTER 2024-01-30 15:11 | Outpatient (CLI) | payer MEDICARE, MEDICAID, SELFPAY ==
[2024-01-30 14:22] LABS: Basophils # 0.1 K/mm3 (0-0.2); Basophils % 1.2 % (0.1-2.0); Eosinophils % 10.4 % (0.1-12.0); Hematocrit 43.1 % (42.0-52.0); Hemoglobin 14.6 g/dL (14.1-18.0); Lymphocytes # 2.4 K/mm3 (0.7-4.5); Lymphocytes % 26.1 % (10-50); Mean Corpuscular HGB Conc 33.8 g/dL (31.8-35.4); Mean Corpuscular Hemoglobin 31.7 pg (27.0-31.2); Mean Corpuscular Volume 93.8 fl (80-94); Mean Platelet Volume 8.8 fl (7.4-10.4); Monocytes # 0.7 K/mm3 (0.1-1.0); Monocytes % 7.4 % (1.7-9.3); Neutrophils % 54.9 % (37.0-80.0); Platelet Count 159 K/mm3 (142-424); Red Blood Count 4.59 M/mm3 (4.60-6.20); White Blood Count 9.2 K/mm3 (4.8-10.8)
[2024-01-30 14:36] LABS: Alanine Aminotransferase 18 U/L (12-78); Albumin Level 4.6 g/dl (3.5-5.0); Albumin/Globulin Ratio 1.5 (1.1-1.8); Alkaline Phosphatase 62 U/L (38-126); Aspartate Amino Transferase 29 U/L (17-59); Bilirubin,Total 1.6 mg/dl (0.2-1.3); Blood Urea Nitrogen 23 mg/dl (9-20); Carbon Dioxide 24 mmol/L (22.0-30.0); Chloride 103 mmol/L (98-107); Chol/HDL Ratio 2.7 (1-3.5); Cholesterol 169 mg/dl (140-200); Estimated Glomerular Filt Rate 52 ml/min (>60); GFR (African American) 63 ML/MIN (>60); Globulin 3.1 g/dL (1.3-3.2); HDL Cholesterol 63 mg/dl (40-60); Sodium 141 mmol/L (136-145); Total Protein,Serum 7.7 g/dl (6.3-8.2); Triglycerides 84 mg/dl (30-150); VLDL Cholesterol 17 mg/dL (0-40)
[2024-01-30 14:47] LABS: Direct LDL Cholesterol 77.83 mg/dL (100-129)
[2024-01-30 15:08] LABS: Hemoglobin A1C 4.6 % (4.0-6.0)
[2024-01-30 15:33] LABS: Glucose 49 mg/dl (74-100)
== END 2024-01-30 23:59 | disposition home or self-care (01) ==
LOC: LAB.DROPOF 15:12
PROVIDERS: PCP Internal Medicine; Visit Provider Internal Medicine
DX: E11.22 Type 2 diabetes mellitus with diabetic chronic kidney disease (principal); E11.59 Type 2 diabetes mellitus with other circulatory complications; I12.9 Hypertensive chronic kidney disease with stage 1 through stage 4 chronic kidney disease, or unspecified chronic kidney disease; N18.9 Chronic kidney disease, unspecified; E78.5 Hyperlipidemia, unspecified; Z79.4 Long term (current) use of insulin; Z79.84 Long term (current) use of oral hypoglycemic drugs; Z79.85 Long-term (current) use of injectable non-insulin antidiabetic drugs
CPT/HCPCS: 80053; 80061; 83036; 85025

== ENCOUNTER 2024-05-21 09:35 | Outpatient (CLI) | payer MEDICARE, MEDICAID, SELFPAY ==
[2024-05-21 16:57] LABS: Basophils # 0.1 K/mm3 (0-0.2); Basophils % 1.1 % (0.1-2.0); Eosinophils # 0.3 K/mm3 (0.0-0.4); Eosinophils % 4.3 % (0.1-12.0); Hematocrit 37.6 % (42.0-52.0); Hemoglobin 12.8 g/dL (14.1-18.0); Lymphocytes # 1.3 K/mm3 (0.7-4.5); Lymphocytes % 19.3 % (10-50); Mean Corpuscular HGB Conc 34.1 g/dL (31.8-35.4); Mean Corpuscular Hemoglobin 31.3 pg (27.0-31.2); Mean Corpuscular Volume 91.8 fl (80-94); Mean Platelet Volume 8.6 fl (7.4-10.4); Monocytes # 0.7 K/mm3 (0.1-1.0); Monocytes % 10.2 % (1.7-9.3); Neutrophils # 4.4 K/mm3 (1.8-7.8); Neutrophils % 65.1 % (37.0-80.0); Platelet Count 173 K/mm3 (142-424); Red Blood Count 4.09 M/mm3 (4.60-6.20); Red Cell Distribution Width 14.9 % (11.5-17.5); White Blood Count 6.8 K/mm3 (4.8-10.8)
[2024-05-21 17:45] LABS: Alanine Aminotransferase 19 U/L (12-78); Albumin Level 3.7 g/dl (3.5-5.0); Albumin/Globulin Ratio 1.5 (1.1-1.8); Alkaline Phosphatase 53 U/L (38-126); Anion Gap 4.9 mEq/L (5-15); Aspartate Amino Transferase 29 U/L (17-59); Bilirubin,Total 1.2 mg/dl (0.2-1.3); Blood Urea Nitrogen 19 mg/dl (9-20); Calcium 10.3 mg/dl (8.4-10.2); Carbon Dioxide 27 mmol/L (22.0-30.0); Chloride 104 mmol/L (98-107); Estimated Glomerular Filt Rate 62 ml/min (>60); GFR (African American) 76 ML/MIN (>60); Globulin 2.4 g/dL (1.3-3.2); Glucose 106 mg/dl (74-100); Potassium 3.9 mmoL/L (3.5-5.1); Sodium 132 mmol/L (136-145); Total Protein,Serum 6.1 g/dl (6.3-8.2)
== END 2024-05-21 23:59 | disposition home or self-care (01) ==
LOC: LAB.DROPOF 05-22 09:35
PROVIDERS: PCP Internal Medicine; Visit Provider Internal Medicine
DX: E11.59 Type 2 diabetes mellitus with other circulatory complications (principal); N18.9 Chronic kidney disease, unspecified; I10 Essential (primary) hypertension; E11.42 Type 2 diabetes mellitus with diabetic polyneuropathy; E78.5 Hyperlipidemia, unspecified; K74.60 Unspecified cirrhosis of liver; G47.33 Obstructive sleep apnea (adult) (pediatric)
CPT/HCPCS: 80053; 83036; 85025

== ENCOUNTER 2024-07-27 23:17 | Emergency (ER) | payer MEDICARE, SELFPAY ==
[2024-07-27 23:17] VITALS: BP 103/42; PULSE 96; RESP 20; TEMP 37.2; O2SAT 95; BMI 46.7
--- NOTE | 2024-07-27 23:19 | ECG_ITS ---
APPROVED REPORT Exam: Resting ECG HR:64 bpm ECG Measurements Heart Rate 64 AXES QRSd 157 QRS -68 QT 496 T 81 QTc 505 Conclusion ATRIAL FIBRILLATION LEFT AXIS DEVIATION [QRS AXIS < -30] INTRAVENTRICULAR CONDUCTION DELAY [130+ ms QRS DURATION] TYPE 3 BRUGADA PATTERN (NON-DIAGNOSTIC) [COVED/SADDLEBACK ST ELEVATION > 0.1mV IN 2 OF V1-3] ABNORMAL ECG UNCONFIRMED REPORT Electronically signed by : PEDRO RABAGO, 07/28/2024 23:52:56
[2024-07-27 23:21] VITALS: BMI 44.4
--- NOTE | 2024-07-27 23:21 | XR_ITS ---
PROCEDURE INFORMATION: Exam: XR Chest Exam date and time: 07/27/2024 11:56 PM Age: 59 years old Clinical indication: Cough and shortness of breath; Additional info: SOA cough body aches TECHNIQUE: Imaging protocol: Radiologic exam of the chest. Views: 1 view. COMPARISON: CR XR CHEST PORTABLE 04/27/2021 5:51 PM FINDINGS: Lungs: Low lung volumes with bronchovascular crowding versus pulmonary vascular congestion. Pleural spaces: No large pleural effusion. No pneumothorax. Heart/Mediastinum: Cardiomegaly. Bones/joints: No acute findings. IMPRESSION: Low lung volumes with bronchovascular crowding versus pulmonary vascular congestion. Infection cannot be excluded.
[2024-07-27] MEDS: CALCIUM GLUC IN NACL, ISO-OSM 1 GM/50 ML BAG IV (23:27)
[2024-07-27] MEDS: ASPIRIN 81MG CHEWABLE TABLET 324 MG PO (23:27)
[2024-07-27 23:35] LABS: Adenovirus,PCR Not Detected (NotDetected); Bordetella Pertussis Not Detected (NotDetected); Chlamydophila Pneumoniae, PCR Not Detected (NotDetected); Coronavirus 19, PCR Not Detected (NotDetected); Coronavirus 229E Not Detected (NotDetected); Coronavirus NL63 Not Detected (NotDetected); Coronavirus OC43 Not Detected (NotDetected); Coronovirus HKU1,PCR Not Detected (NotDetected); Human Metapneumovirus Not Detected (NotDetected); Influenza A, PCR Not Detected (NotDetected); Influenza AH1, 2009 Not Detected (NotDetected); Influenza AH1, PCR Not Detected (NotDetected); Influenza AH3,PCR Not Detected (NotDetected); Influenza B, PCR Not Detected (NotDetected); Mycoplasma Pneumoniae, PCR Not Detected (NotDetected); Parainfluenza 1, PCR Not Detected (NotDetected); Parainfluenza 2, PCR Not Detected (NotDetected); Parainfluenza 3, PCR Not Detected (NotDetected); Parainfluenza 4, PCR Not Detected (NotDetected); Respiratory Syncytial Virus Not Detected (NotDetected); Rhinovirus/Enterovirus Not Detected (NotDetected)
--- NOTE | 2024-07-27 23:36 | ED_ITS ---
Discharge Plan Disposition Patient Disposition: Xfer Short-Term Hosp Prescriptions Prescriptions: No Action pravastatin 80 mg tablet 80 mg PO DAILY Qty: 30 0RF potassium chloride 20 mEq tablet extended release 20 meq PO BID Qty: 60 0RF omeprazole 20 mg capsule,delayed release(DR/EC) 20 mg PO DAILY Qty: 30 0RF Ozempic 2 mg/dose (8 mg/3 mL) pen injector See Rx Instructions .ROUTE .COMPLEX Qty: 9 1RF Dose Instruction: INJECT 2MG UNDER THE SKIN ONE TIME WEEKLY Rx Instructions: INJECT 2MG UNDER THE SKIN ONE TIME WEEKLY ipratropium bromide 0.02 % solution See Rx Instructions .ROUTE .COMPLEX Qty: 360 1RF Dose Instruction: INHALE THE CONTENTS OF 1 VIAL VIA NEBULIZER 4 TIMES A DAY Rx Instructions: INHALE THE CONTENTS OF 1 VIAL VIA NEBULIZER 4 TIMES A DAY lactulose 10 gram/15 mL solution See Rx Instructions .ROUTE .COMPLEX Qty: 1350 3RF Dose Instruction: TAKE 15 ML ORALLY ONCE A DAY Rx Instructions: TAKE 15 ML ORALLY ONCE A DAY fluticasone propion-salmeterol 100-50 mcg/dose blister with device See Rx Instructions .ROUTE .COMPLEX Qty: 180 3RF Dose Instruction: INHALE 1 PUFF TWICE DAILY Rx Instructions: INHALE 1 PUFF TWICE DAILY Eliquis 5 mg tablet See Rx Instructions .ROUTE .COMPLEX Qty: 180 3RF Dose Instruction: TAKE 1 TABLET TWICE DAILY DIRECTED Rx Instructions: TAKE 1 TABLET TWICE DAILY DIRECTED insulin lispro [Humalog U-100 Insulin] 100 unit/mL solution See Rx Instructions .ROUTE .COMPLEX Qty: 180 3RF Dose Instruction: INJECT UP TO 100 UNITS SUBCUTANEOUSLY TWO TIMES DAILY Rx Instructions: INJECT UP TO 100 UNITS SUBCUTANEOUSLY TWO TIMES DAILY diltiazem HCl 90 mg tablet See Rx Instructions .ROUTE .COMPLEX Qty: 270 3RF Dose Instruction: TAKE 1 TABLET THREE TIMES DAILY Rx Instructions: TAKE 1 TABLET THREE TIMES DAILY amiodarone 200 mg tablet 200 mg PO DAILY Qty: 90 1RF cyclobenzaprine 10 mg tablet See Rx Instructions .ROUTE .COMPLEX Qty: 90 1RF Dose Instruction: TAKE 1 TABLET AT BEDTIME Rx Instructions: TAKE 1 TABLET AT BEDTIME lisinopril 20 mg tablet 20 mg PO DAILY Qty: 30 0RF tamsulosin 0.4 mg capsule See Rx Instructions .ROUTE .COMPLEX Qty: 90 1RF Dose Instruction: TAKE 1 CAPSULE EVERY EVENING FOR URINATION Rx Instructions: TAKE 1 CAPSULE EVERY EVENING FOR URINATION spironolactone 50 mg tablet See Rx Instructions .ROUTE .COMPLEX Qty: 90 1RF Dose Instruction: TAKE 1 TABLET EVERY MORNING Rx Instructions: TAKE 1 TABLET EVERY MORNING (DME) Dexcom G7 Sensor Device See Rx Instructions .Route Qty: 30 3RF Rx Instructions: As directed (DME) insulin syringe-needle U-100 [BD Insulin Syringe Ultra-Fine] 1 mL 30 gauge x 1/2 syringe See Rx Instructions .Route Qty: 300 3RF Rx Instructions: inject 3 times daily insulin glargine [Lantus U-100 Insulin] 100 unit/mL solution See Rx Instructions .ROUTE .COMPLEX Qty: 140 1RF Dose Instruction: INJECT 80 UNITS SUBCUTANEOUSLY TWICE DAILY Rx Instructions: INJECT 100 UNITS SUBCUTANEOUSLY TWICE DAILY furosemide 80 mg tablet 80 mg PO TID Qty: 270 1RF clonazepam 0.5 mg tablet 0.5 mg PO HS Qty: 30 0RF Rx Instructions: administer 30 minutes before bedtime gabapentin 600 mg tablet 600 mg PO QID Qty: 120 0RF hydrocodone-acetaminophen 10-325 mg tablet 1 tab PO QID PRN (Reason: pain) Qty: 120 0RF sodium,potassium,mag sulfates 177 ML recon soln 177 ml PO DAILY Rx Instructions: drink entire amount PM before + AM of procedure, 10-12 hr apart Clinical Impressions Clinical Impression: Acute hyperkalemia, Acute renal failure (ARF), Hypoxic respiratory failure Stand Alone Forms Stand Alone Forms: Transfer Record - ED Print Language Print Language: Croatian Discharge ED Provider: George Oden [facility] General Chief Complaint: Weakness Stated Complaint: hypotension, A-fib Time Seen by Provider: 07/27/24 23:21 History of Present Illness HPI narrative: 59-year-old male with history of COPD, obesity, liver cirrhosis, type 2 diabetes with vascular disease, hypertension, CKD presents to the ER for concerns of diffuse bodyaches, cough, congestion. Patient reports his symptoms started in the last 1 to 2 days. Per EMS, patient was in assisted living until approximately 3 days ago. He was then released to home and has been living independently for the last few days. He reports he is back on all of his medications including his diuretics. He states he had not been getting his diuretics previously while he was at assisted living. Patient reports he is compliant with his insulin. He states he does not have chest pain and states his difficulty breathing at this time is approximately at baseline. He reportedly does not wear oxygen at home but EMS placed him on 2 L nasal cannula because he was saturating in the upper 80s. Patient reports he believes he has a cold . EMS stated his tracing on the monitor appeared abnormal so they did a twelve-lead which looked like a STEMI, Dr. Bowman reviewed the ECG and thought it looked acidemic/hyperkalemic, no STEMI per him. EMS reports they administered 300 mL normal saline and route as well as oral aspirin. No other medications administered. Patient states he is here for the body aches and feeling like he has a cold. Related Data Home Medications ?Medication ?Instructions ?Recorded ?Confirmed sodium,potassium,mag sulfates 17.5 177 ml PO DAILY Supplement 08/20/18 07/02/24 gram-3.13 gram-1.6 gram oral soln Previous Rx's ?Medication ?Instructions ?Recorded omeprazole 20 mg capsule,delayed 20 mg PO DAILY #30 caps 05/14/24 release potassium chloride 20 mEq 20 meq PO BID #60 tabs 05/14/24 tablet,extended release pravastatin 80 mg tablet 80 mg PO DAILY choleserol #30 tabs 05/14/24 apixaban 5 mg tablet (Eliquis) See Rx Instructions .Route 05/30/24 .COMPLEX #180 tabs diltiazem HCl 90 mg tablet See Rx Instructions .Route 05/30/24 .COMPLEX #270 tabs fluticasone 100 mcg-salmeterol 50 See Rx Instructions .Route 05/30/24 mcg/dose blistr powdr for .COMPLEX #180 blisters inhalation insulin lispro 100 unit/mL See Rx Instructions .Route 05/30/24 subcutaneous solution (Humalog .COMPLEX #180 mL U-100 Insulin) ipratropium bromide 0.02 % See Rx Instructions .Route 05/30/24 solution for inhalation .COMPLEX #360 ea lactulose 10 gram/15 mL oral See Rx Instructions .Route 05/30/24 solution .COMPLEX #1,350 mL semaglutide 2 mg/dose (8 mg/3 mL) See Rx Instructions .Route 05/30/24 subcutaneous pen injector (Ozempic) .COMPLEX #9 ea amiodarone 200 mg tablet 200 mg PO DAILY #90 tabs 06/02/24 blood-glucose sensor (Dexcom G7 #30 ea 06/04/24 Sensor device) cyclobenzaprine 10 mg tablet See Rx Instructions .Route 06/04/24 .COMPLEX #90 tabs lisinopril 20 mg tablet 20 mg PO DAILY blood pressure #30 06/04/24 tabs spironolactone 50 mg tablet See Rx Instructions .Route 06/04/24 .COMPLEX #90 tabs tamsulosin 0.4 mg capsule See Rx Instructions .Route 06/04/24 .COMPLEX #90 caps insulin syringe-needle U-100 1 mL #300 ea 06/06/24 30 gauge x 1/2 (BD Insulin Syringe Ultra-Fine) insulin glargine 100 unit/mL See Rx Instructions .Route 06/11/24 subcutaneous solution (Lantus .COMPLEX #140 mL U-100 Insulin) furosemide 80 mg tablet 80 mg PO TID #270 tabs 07/08/24 clonazepam 0.5 mg tablet 0.5 mg PO HS #30 tabs 07/11/24 gabapentin 600 mg tablet 600 mg PO QID #120 tabs 07/11/24 hydrocodone 10 mg-acetaminophen 1 tab PO QID PRN pain #120 tabs 07/11/24 325 mg tablet Allergies Allergy/AdvReac Type Severity Reaction Status Date / Time No Known Allergies Allergy Verified 07/02/24 08:16 [facility] Disclaimer: The information contained in this section may have been updated after the patient was seen, as this information can be updated by other users. Social History Smoking Status: Current every day smoker alcohol intake: never substance use type: denies use current occupational status: unemployed Travel in the last 8 weeks: None caffeine: No Have you lived/traveled outside [place] in past 30 days?: No Contact w/someone who lives/traveled outside US past 30 days?: No Exposure to someone with infectious disease in past 14 days?: No Do you have a fever (greater than 100.4 F or 38 C)?: No Have you tested positive for COVID-19: No Exposed to someone with COVID-19 in past 14 days?: No Do you have a sore throat?: No Do you have a cough?: No Do you have any weakness?: No Do you have any diarrhea?: No Are you experiencing any unusual bleeding?: No Do you have any muscle aches/pain?: No Do you have any abdominal pain?: No Are you experiencing loss of taste or smell?: No Other Medical History Have you received the Flu Vaccine for this season: No Have you received the Pneumonia Vaccine: Yes ROS Obtained: Yes Systems reviewed as appropriate & no additional complaints except as documented ROS per HPI Physical Exam General General appearance: alert, in no apparent distress and obese Head Head exam: atraumatic and normocephalic Eye Eye exam: Present PERRL and EOMI ENT ENT exam: Present mucous membranes moist Neck Neck exam: Present normal inspection and full ROM Chest Chest inspection: Present symmetric chest wall rise Respiratory Respiratory exam: Present wheezes; Absent normal lung sounds bilaterally (Breath sounds diminished throughout, rhonchi and rales present worse at the bases), respiratory distress or stridor Cardiovascular Cardiovascular exam: Present regular rate and irregular rhythm Abdominal Exam Abdominal exam: Present soft; Absent distention or tenderness Extremities Exam Extremities exam: Present full ROM and edema Neurological Exam Neurological exam: Present alert and oriented X3; Absent motor sensory deficit Psychiatric Psychiatric exam: Present normal affect and normal mood Skin Skin exam: Present warm and dry HEART Score HEART Score HEART Score assessment performed?: Yes History (anamnesis): Slightly suspicious ECG: Non-specific disturbance Age: 45-65 years Risk factors: 3 or more risk factors Troponin: </= normal limit HEART Score: 4 Procedures Miscellaneous Procedure Procedure Performed: Limited lung ultrasound A focused ultrasound exam of the pleural spaces was performed to evaluate for pneumothorax, pulmonary edema, pleural effusion and/or consolidation. The ultrasound was performed with the following indications, as noted in the H&P: Shortness of breath Identified structures: Bilateral thoracic cavities were examined. Findings: Lung sliding: -Present bilaterally B-lines: Present in bilateral lateral lung chapin Pleural effusion: -Absent bilaterally Consolidation: Not appreciated bilaterally Impression: - Pneumothorax bilateral absent - Pleural effusion bilateral absent - B-lines bilateral present - Consolidation bilateral absent Images were saved to permanent archive The study was technically adequate CPT 25090-07 This study was performed by me, and I personally interpreted all images/videos. Based on my clinical judgement, these images were adequate and did not necessitate further imaging. Limited Cardiac Ultrasound Indication: Shortness of breath Identified cardiac views: Parasternal long axis, parasternal short axis Findings: Cardiac activity present without gross wall motion abnormality, trace pericardial effusion present, no right heart strain appreciated Impression: -[From above] Images were saved to permanent archive The study was technically adequate CPT: 17866 This study was performed by me, and I personally interpreted all images/videos. Based on my clinical judgement, these images were adequate and did not necessitate further imaging. Critical Care Critical Care Time Critical Care Time: Yes Attestation: On , the high probability of a clinically significant, sudden or life threatening deterioration of the following system(s) (cardiac, respiratory) required my full and direct attention, intervention and personal management. The time I documented below is in addition to time spent performing reported procedures but includes the following listed in this critical care notation. Total Time Total Critical Care Time: 65 Medical Decision Making Medical Records Medical records reviewed: Yes I reviewed the patient's medical records. MR Comment: Previous labs reviewed, patient's baseline creatinine is 1.2-1.4 Kyrie Inquiry Pt receiving controlled substance: No Vital Signs Vital Signs: 07/27/24 23:17 Temperature 98.9 F Temperature Source Oral Pulse Rate [Left] 96 H Respiratory Rate 20 Blood Pressure [Right Arm] 103/42 L Blood Pressure Mean [Right Arm] 62 02 Sat by Pulse Oximetry 95 Oxygen Delivery Method Nasal Cannula Oxygen Flow Rate (LPM) 3 Lab Data Labs: Lab Results 07/27/24 23:08: Acetone Level None detected 07/27/24 23:21: VBG pH 7.25 L, VBG pCO2 39.2, VBG pO2 60.1 H, VBG HCO3 16.8 L, V BG Total CO2 18.0 L, VBG O2 Saturation 88.6 H, VBG Base Excess -10.5 L, VBG Lactic Acid 2.8 H 07/27/24 23:22: WBC 10.2, RBC 3.82 L, Hgb 11.9 L, Hct 34.6 L, MCV 90.4, MCH 31.0, MCHC 34.3, RDW 16.2, Plt Count 177, MPV 8.4, Neut % (Auto) 73.3, Lymph % (Auto) 16.1, [place] % (Auto) 9.0, Eos % (Auto) 0.8, Baso % (Auto) 0.9, Neut # (Auto) 7.5, Lymph # (Auto) 1.6, [place] # (Auto) 0.9, Eos # (Auto) 0.1, Baso # (Auto) 0.1, PT 12.2, INR 1.10, APTT 34.9 H, Sodium 134 L, Potassium 8.2 H*, Chloride 105, Carbon Dioxide 17 L, Anion Gap 20.2 H, BUN 89 H, Creatinine 7.40 H , Estimated Creat Clear 14, Estimated GFR 8 L*, Est GFR ( Amer) 9 L*, G lucose 233 H, Lactate 1.6, Calcium 8.9, Total Bilirubin 1.2, AST 34, ALT 23, Alkaline Phosphatase 62, Troponin I < 0.01, NT-Pro-B Natriuret Pep 1960 H, Total Protein 6.8, Albumin 4.0, Globulin 2.8, Albumin/Globulin Ratio 1.4, Chlamy pneumoniae PCR Not detected, Adenovirus (PCR) Not detected, B. pertussis DNA (PCR) Not detected, Coronavirus OC43 (PCR) Not detected, Coronavirus HKU1 (PCR) Not detected, Coronavirus 229E (PCR) Not detected, SARS-CoV-2 (PCR) Not detected, Coronavirus NL63 (PCR) Not detected, Human Metapneumovir PCR Not detected, Influenza A (H1) PCR Not detected, Influ A (H1N1/09) PCR Not detected, Influenza A (H3) PCR Not detected, Influenza Type A (PCR) Not detected, Influenza Type B (PCR) Not detected, M. pneumoniae (PCR) Not detected, Parainfluenza 1 (PCR) Not detected, Parainfluenza 2 (PCR) Not detected, Parainfluenza 3 (PCR) Not detected, Parainfluenza 4 (PCR) Not detected, RSV (PCR) Not detected, Entero/Rhino (PCR) Not detected 07/27/24 23:25: Magnesium 2.3 07/28/24 00:49: Potassium 7.8 H* 07/27/24 23:22 07/28/24 00:49 Response Orders (Tests/Meds): ED MEDICATIONS Generic Name Dose Route Start Last Admin Trade Name Freq PRN Reason Stop Dose Admin Dextrose/Water 500 mls @ 25 mls/hr 07/28/24 00:15 07/28/24 00:25 Dextrose 10% In Water 500ml IV 08/27/24 00:14 25 mls/hr .Q20H PRACHI Administration Insulin Human Regular 5 unit 07/28/24 01:33 Insulin Human Regular 100 Units/Ml 10ml Vial IVP 07/28/24 01:34 ONCE ONE Discontinued Medications Generic Name Dose Route Start Last Admin Trade Name Alisha PRN Reason Stop Dose Admin Albuterol Sulfate 20 mg 07/27/24 23:57 07/28/24 01:09 Albuterol 0.083% 2.5 Mg/3 Ml [facility] 07/27/24 23:58 20 mg ONCE ONE Administration Albuterol/Ipratropium 9 ml 07/27/24 23:21 07/28/24 01:09 Ipratropium/Albuterol 3 Ml Neb 07/27/24 23:22 9 ml ONCE ONE Administration Aspirin 324 mg 07/27/24 23:21 07/27/24 23:27 Aspirin 81mg Chewable Tablet PO 07/27/24 23:22 324 mg ONCE ONE Administration Furosemide 80 mg 07/27/24 23:24 07/28/24 00:46 Furosemide 40mg/4ml Vial IV 07/27/24 23:25 80 mg ONCE ONE Administration Calcium Gluconate/Sodium Chloride 1 gm in 50 mls @ 50 mls/hr 07/27/24 23:23 07/27/24 23:27 Calcium Gluconate 1,000mg/50ml Nacl Premix IV 07/28/24 00:22 50 mls/hr ONCE ONE Administration Calcium Gluconate/Sodium Chloride 1 gm in 50 mls @ 50 mls/hr 07/27/24 23:57 07/28/24 00:23 Calcium Gluconate 1,000mg/50ml Nacl Premix IV 07/28/24 00:56 50 mls/hr ONCE ONE Administration Insulin Human Regular 10 unit 07/27/24 23:57 07/28/24 00:05 Insulin Human Regular 100 Units/Ml 10ml Vial IVP 07/27/24 23:58 10 unit ONCE ONE Administration Morphine Sulfate 2 mg 07/28/24 00:09 07/28/24 00:25 Morphine 2mg/Ml Syringe IV 07/28/24 00:10 2 mg ONCE ONE Administration ORDERS Category Date Time Status CT angio chest PE protocol Stat Cat Scan 07/27/24 23:21 Ordered XR chest portable Stat Exams 07/27/24 23:21 Completed Acetone, Serum (Rapid) Stat Lab 07/27/24 23:08 Completed Activated Partial Thrombo Time Stat Lab 07/27/24 23:22 Completed Complete Blood Count Auto Diff Stat Lab 07/27/24 23:22 Completed Comprehensive Metabolic Panel Stat Lab 07/27/24 23:22 Completed Full Resp Panel w/COVID ([facility]) Routine Lab 07/27/24 23:22 Completed HIV (1&2) Antibody Rapid Stat Lab 07/27/24 23:41 Ordered Hep C Ab with Reflex to RNA Stat Lab 07/27/24 23:41 Ordered Lactic Acid Stat Lab 07/27/24 23:22 Completed Magnesium Stat Lab 07/28/24 00:00 Completed NT Pro Brain Natriuretic Pep. Stat Lab 07/27/24 23:22 Completed Potassium Stat Lab 07/28/24 00:49 Completed Prothrombin Time INR Stat Lab 07/27/24 23:22 Completed Troponin I Q3H Lab 07/28/24 02:30 Ordered Troponin I Q3H Lab 07/28/24 05:30 Ordered Troponin I Stat Lab 07/27/24 23:21 Completed UDS [Drug Screen,Urine] Stat Lab 07/27/24 23:22 Ordered Urinalysis and Microscopic Stat Lab 07/27/24 23:22 Ordered VBG [Venous Blood Gas] Stat RT 07/27/24 23:21 Completed MDM Narrative Medical Decision Narrative: In summary, this 59-year-old male with comorbidities described in the HPI presents to the emergency department today with bodyaches, cough, congestion, mild hypoxia according to EMS. On initial evaluation patient has an irregular heart rate with known history of A-fib, blood pressure low but not hypotensive, he has 2+ pulses throughout and brisk capillary refill, GCS 15, no neurodeficits, he does have mild tachypnea, wheezing, rhonchi, rales throughout, abdominal exam benign. Differential diagnosis includes but is not limited to viral syndrome, pneumonia, COPD exacerbation, also considered the possibility of respiratory failure, I am concerned about the tracing on the monitor concerning for renal failure, hyperkalemia, other electrolyte abnormality, medication noncompliance, fluid overload, I considered ACS, PE, among others. Based on these concerns, I ordered broad workup including serum labs, cardiac workup, CT imaging. ECG personally interpreted demonstrates atrial fibrillation with rate 64, left axis deviation, widened QRS, prolonged QTc, hyperacute T waves, severe concern for hyperkalemia, no STEMI. Patient received calcium gluconate initially for treatment. I performed bedside ultrasound which demonstrates B-lines as well as trace pericardial effusion. Patient has findings concerning for fluid overload as well as hyperkalemia. He is receiving DuoNebs as well which will treat his wheezing as well as help shift potassium intracellularly well we await labs Labs personally reviewed demonstrate severe hyperkalemia, potassium 8.2, acute renal failure with creatinine greater than 7, mild hyperglycemia.with his ECG changes, patient is receiving aggressive treatment of his hyperkalemia including IV insulin, dextrose containing fluids, every 15 minute fingerstick glucose checks, continuous albuterol. Labs also demonstrate mild anemia, no leukocytosis. Lactic 1.6. XR personally interpreted demonstrates findings concerning for pulmonary edema. Due to patient's kidney failure, I am not performing CTA PE at this time, I have much lower suspicion for PE and much higher suspicion for the fluid overload and possible viral etiology in the setting of COPD being the cause of his respiratory problems. Patient is currently not stable enough with his EKG changes to go through CT at this time either. He is currently on the ZOLL pads and being very closely monitored. [facility] was contacted for transfer for emergent dialysis, patient was declined due to no bed availability. [facility] has been contacted. I spoke with Dr. Sales of [facility] transfer center, after reviewing patient's lab and other workup findings, he graciously excepted the patient for ED to ED transfer for acute renal failure, hyperkalemic emergency. Patient is receiving IV Lasix 80 mg to hopefully stimulate the kidney since he does still make urine as well as to help him diurese and remove potassium. Patient requires ALS transfer. He is continue to receive treatment while awaiting transfer. Patient's repeat potassium is now 7.8, which is trending in the correct direction. Patient's fingerstick glucose is still in the 250s. Dextrose containing fluids have not had to be administered. He is receiving additional IV insulin. In total prior to transfer patient has received 15 units IV insulin. Patient continues to have soft blood pressures but is mentating well. Manual blood pressures continue to have systolics in the 100s. Cuff pressures do not appear to be reading accurately. Patient remains critically ill but requires transfer for emergent dialysis and acute intervention, continued management of hyperkalemia. Ambulance has arrived and patient is being transferred in critical condition.
[2024-07-27 23:44] LABS: Basophils # 0.1 K/mm3 (0-0.2); Basophils % 0.9 % (0.1-2.0); Eosinophils # 0.1 K/mm3 (0.0-0.4); Eosinophils % 0.8 % (0.1-12.0); Hematocrit 34.6 % (42.0-52.0); Hemoglobin 11.9 g/dL (14.1-18.0); Lymphocytes # 1.6 K/mm3 (0.7-4.5); Lymphocytes % 16.1 % (10-50); Mean Corpuscular HGB Conc 34.3 g/dL (31.8-35.4); Mean Corpuscular Volume 90.4 fl (80-94); Mean Platelet Volume 8.4 fl (7.4-10.4); Monocytes # 0.9 K/mm3 (0.1-1.0); Neutrophils # 7.5 K/mm3 (1.8-7.8); Neutrophils % 73.3 % (37.0-80.0); Platelet Count 177 K/mm3 (142-424); Red Blood Count 3.82 M/mm3 (4.60-6.20); Red Cell Distribution Width 16.2 % (11.5-17.5); White Blood Count 10.2 K/mm3 (4.8-10.8)
[2024-07-27 23:46] LABS: Chloride 105 mmol/L (98-107); Sodium 134 mmol/L (136-145)
[2024-07-27 23:49] LABS: Alanine Aminotransferase 23 U/L (12-78); Albumin/Globulin Ratio 1.4 (1.1-1.8); Alkaline Phosphatase 62 U/L (38-126); Anion Gap 20.2 mEq/L (5-15); Aspartate Amino Transferase 34 U/L (17-59); Bilirubin,Total 1.2 mg/dl (0.2-1.3); Calcium 8.9 mg/dl (8.4-10.2); Carbon Dioxide 17 mmol/L (22.0-30.0); Creatinine Clearance Estimated 14 mL/min (50-200); Estimated Glomerular Filt Rate 8 ml/min (>60); GFR (African American) 9 ML/MIN (>60); Globulin 2.8 g/dL (1.3-3.2); Glucose 233 mg/dl (74-100); Total Protein,Serum 6.8 g/dl (6.3-8.2)
[2024-07-27 23:55] LABS: Potassium 8.2 mmoL/L (3.5-5.1)
[2024-07-27 23:56] LABS: Blood Urea Nitrogen 89 mg/dl (9-20)
[2024-07-27 23:59] LABS: NT Pro Brain Natriuretic Pep. 1960 pg/mL (0-125)
[2024-07-28 00:02] LABS: Acetone, Serum (Rapid) None Detected (None Detect)
[2024-07-28] MEDS: INSULIN HUMAN REGULAR 100 UNITS/ML 10ML VIAL 10 UNIT IVP (00:05)
[2024-07-28 00:07] LABS: Lactic Acid 1.6 mmol/L (0.7-2.1)
[2024-07-28 00:10] LABS: Activated Partial Thrombo Time 34.9 seconds (22.8-30.6); Prothrombin Time 12.2 seconds (10.1-12.5)
[2024-07-28] MEDS: CALCIUM GLUC IN NACL, ISO-OSM 1 GM/50 ML BAG IV (00:23)
[2024-07-28 00:24] LABS: Troponin I < 0.01 ng/ml (0.00-0.034)
[2024-07-28] MEDS: DEXTROSE 10 % IN WATER 500 ML 25 ML IV (00:25)
[2024-07-28] MEDS: MORPHINE 2MG/ML SYRINGE 2 MG IV (00:25)
--- NOTE | 2024-07-28 00:28 | PC.NURSE ---
Contacted [facility] regarding transfer of this patient to [place] for emergent dialysis, they could not get ahold of their housekeeping laundry worker. They finally did and declined due to no availability of ICU beds. Also contacted [facility] for a transfer and they will reach out when their transfer Dr is available.
--- NOTE | 2024-07-28 00:35 | PC.NURSE ---
Pt is very uncomfortable. This RN discussed how important it is for the patient to get the treatment he needs. This RN, Shivam HSI[facility], Suman Chatman, and Arley Quinn moved the patient up in the bed and tried to get him more comfortable. Pt has family bedside.
--- NOTE | 2024-07-28 00:38 | PC.NURSE ---
on phone with
[2024-07-28 00:39] LABS: VBG Base Excess -10.5 mmol/L (-2.4-2.3); VBG HCO3 16.8 mmol/L (23-30); VBG Oxygen Saturation 88.6 % (50-70); VBG PCO2 39.2 mmol/L (35-51); VBG PH 7.25 mmol/L (7.31-7.41); VBG PO2 60.1 mmol/L (28-40)
[2024-07-28 00:40] LABS: Lactate Venous 2.8 mmol/L (0.4-2.0)
[2024-07-28] MEDS: FUROSEMIDE 40MG/4ML VIAL 80 MG IV (00:46)
[2024-07-28] MEDS: IPRATROPIUM/ALBUTEROL 3 ML NEB 9 ML IH (01:09)
[2024-07-28] MEDS: ALBUTEROL 0.083% 2.5 MG/3 ML NEB 20 MG IH (01:09)
[2024-07-28 01:18] LABS: Magnesium 2.3 mg/dl (1.6-2.3)
[2024-07-28 01:19] LABS: Potassium 7.8 mmoL/L (3.5-5.1)
[2024-07-28] MEDS: INSULIN HUMAN REGULAR 100 UNITS/ML 10ML VIAL 5 UNIT IVP (01:41)
[2024-07-28 01:47] VITALS: BP 104/40; PULSE 64; PULSE 65; RESP 20; TEMP 37.2; O2SAT 96
[2024-07-28 01:50] VITALS: PULSE 95
== END 2024-07-28 01:45 | disposition short-term general hospital (02) ==
PROVIDERS: Emergency Provider Emergency Medicine; PCP Internal Medicine
DX: J96.91 Respiratory failure, unspecified with hypoxia (principal); N17.9 Acute kidney failure, unspecified; E87.5 Hyperkalemia; R53.1 Weakness; M79.10 Myalgia, unspecified site; R05.9 Cough, unspecified
CPT/HCPCS: 71045; 80053; 82009; 82803; 83605; 83735; 83880; 84132; 84484; 85025; 85610; 85730; 87633; 93005; 96374; 96375; 99291; J1940; J2270; J7613; J7620

== ENCOUNTER 2024-08-28 09:45 | Outpatient (CLI) | payer MEDICARE, SELFPAY ==
[2024-08-28 14:56] LABS: Hemoglobin A1C 5.5 % (4.0-6.0)
[2024-08-28 15:12] LABS: Chloride 103 mmol/L (98-107); Potassium 3.4 mmoL/L (3.5-5.1); Sodium 137 mmol/L (136-145)
[2024-08-28 15:15] LABS: Anion Gap 11.4 mEq/L (5-15); Blood Urea Nitrogen 14 mg/dl (9-20); Carbon Dioxide 26 mmol/L (22.0-30.0); Estimated Glomerular Filt Rate 87 ml/min (>60); GFR (African American) 105 ML/MIN (>60)
[2024-08-28 15:16] LABS: Glucose 108 mg/dl (74-100)
== END 2024-08-28 23:59 | disposition home or self-care (01) ==
LOC: LAB.DROPOF 08-29 08:53
PROVIDERS: PCP Internal Medicine; Visit Provider Internal Medicine
DX: N17.9 Acute kidney failure, unspecified (principal); N18.9 Chronic kidney disease, unspecified; I10 Essential (primary) hypertension; E11.59 Type 2 diabetes mellitus with other circulatory complications; E11.42 Type 2 diabetes mellitus with diabetic polyneuropathy; I73.9 Peripheral vascular disease, unspecified; K74.60 Unspecified cirrhosis of liver; G47.33 Obstructive sleep apnea (adult) (pediatric); E66.01 Morbid (severe) obesity due to excess calories; R33.8 Other retention of urine; A41.81 Sepsis due to Enterococcus; I50.32 Chronic diastolic (congestive) heart failure; I25.10 Atherosclerotic heart disease of native coronary artery without angina pectoris; N39.0 Urinary tract infection, site not specified
CPT/HCPCS: 80048; 83036; 87086; 87088; 87186

== ENCOUNTER 2024-09-10 21:45 | Emergency (ER) | payer MEDICARE, SELFPAY ==
[2024-09-10 21:51] VITALS: BP 171/90; PULSE 90; RESP 20; TEMP 36.6; O2SAT 97; BMI 42.5
--- NOTE | 2024-09-10 21:55 | PC.NURSE ---
Pt awake alert and oriented Skin pink warm and dry Resp full and easy Speech clear and appropriate. No needle visible on inspection. Report given to Rosa HSIEH
--- NOTE | 2024-09-10 22:04 | ED_ITS ---
Discharge Plan Disposition Patient Disposition: Home, Self-Care Condition: Good Prescriptions Prescriptions: No Action pravastatin 80 mg tablet 80 mg PO DAILY Qty: 30 0RF potassium chloride 20 mEq tablet extended release 20 meq PO BID Qty: 60 0RF omeprazole 20 mg capsule,delayed release(DR/EC) 20 mg PO DAILY Qty: 30 0RF Ozempic 2 mg/dose (8 mg/3 mL) pen injector See Rx Instructions .ROUTE .COMPLEX Qty: 9 1RF Dose Instruction: INJECT 2MG UNDER THE SKIN ONE TIME WEEKLY Rx Instructions: INJECT 2MG UNDER THE SKIN ONE TIME WEEKLY ipratropium bromide 0.02 % solution See Rx Instructions .ROUTE .COMPLEX Qty: 360 1RF Dose Instruction: INHALE THE CONTENTS OF 1 VIAL VIA NEBULIZER 4 TIMES A DAY Rx Instructions: INHALE THE CONTENTS OF 1 VIAL VIA NEBULIZER 4 TIMES A DAY lactulose 10 gram/15 mL solution See Rx Instructions .ROUTE .COMPLEX Qty: 1350 3RF Dose Instruction: TAKE 15 ML ORALLY ONCE A DAY Rx Instructions: TAKE 15 ML ORALLY ONCE A DAY fluticasone propion-salmeterol 100-50 mcg/dose blister with device See Rx Instructions .ROUTE .COMPLEX Qty: 180 3RF Dose Instruction: INHALE 1 PUFF TWICE DAILY Rx Instructions: INHALE 1 PUFF TWICE DAILY Eliquis 5 mg tablet See Rx Instructions .ROUTE .COMPLEX Qty: 180 3RF Dose Instruction: TAKE 1 TABLET TWICE DAILY DIRECTED Rx Instructions: TAKE 1 TABLET TWICE DAILY DIRECTED insulin lispro [Humalog U-100 Insulin] 100 unit/mL solution See Rx Instructions .ROUTE .COMPLEX Qty: 180 3RF Dose Instruction: INJECT UP TO 100 UNITS SUBCUTANEOUSLY TWO TIMES DAILY Rx Instructions: INJECT UP TO 100 UNITS SUBCUTANEOUSLY TWO TIMES DAILY diltiazem HCl 90 mg tablet See Rx Instructions .ROUTE .COMPLEX Qty: 270 3RF Dose Instruction: TAKE 1 TABLET THREE TIMES DAILY Rx Instructions: TAKE 1 TABLET THREE TIMES DAILY amiodarone 200 mg tablet 200 mg PO DAILY Qty: 90 1RF cyclobenzaprine 10 mg tablet See Rx Instructions .ROUTE .COMPLEX Qty: 90 1RF Dose Instruction: TAKE 1 TABLET AT BEDTIME Rx Instructions: TAKE 1 TABLET AT BEDTIME lisinopril 20 mg tablet 20 mg PO DAILY Qty: 30 0RF tamsulosin 0.4 mg capsule See Rx Instructions .ROUTE .COMPLEX Qty: 90 1RF Dose Instruction: TAKE 1 CAPSULE EVERY EVENING FOR URINATION Rx Instructions: TAKE 1 CAPSULE EVERY EVENING FOR URINATION spironolactone 50 mg tablet See Rx Instructions .ROUTE .COMPLEX Qty: 90 1RF Dose Instruction: TAKE 1 TABLET EVERY MORNING Rx Instructions: TAKE 1 TABLET EVERY MORNING (DME) Dexcom G7 Sensor Device See Rx Instructions .Route Qty: 30 3RF Rx Instructions: As directed (DME) insulin syringe-needle U-100 [BD Insulin Syringe Ultra-Fine] 1 mL 30 gauge x 1/2 syringe See Rx Instructions .Route Qty: 300 3RF Rx Instructions: inject 3 times daily furosemide 80 mg tablet 80 mg PO TID Qty: 270 1RF hydrocodone-acetaminophen 10-325 mg tablet 1 tab PO QID PRN (Reason: pain) Qty: 120 0RF gabapentin 600 mg tablet 600 mg PO QID Qty: 120 0RF clonazepam 0.5 mg tablet 0.5 mg PO HS Qty: 30 0RF Rx Instructions: administer 30 minutes before bedtime insulin glargine [Lantus U-100 Insulin] 100 unit/mL solution See Rx Instructions .ROUTE .COMPLEX Qty: 180 3RF Dose Instruction: INJECT 100 UNITS UNDER THE SKIN TWICE DAILY Rx Instructions: INJECT 100 UNITS UNDER THE SKIN TWICE DAILY nitrofurantoin monohyd/m-cryst [Macrobid] 100 mg capsule 100 mg PO BID Qty: 14 0RF Rx Instructions: must administer with a meal/food sodium,potassium,mag sulfates 177 ML recon soln 177 ml PO DAILY Rx Instructions: drink entire amount PM before + AM of procedure, 10-12 hr apart Referrals Follow up/Referrals: Jam Torres MD [Primary Care Provider] - See instructions Activity Restrictions/Add. Instructions Additional Instructions/Restrictions: Follow-up with your primary care physician tomorrow as scheduled. If you develop any signs of infection, such as increased redness, pain, swelling or fever, return to the emergency department for evaluation Clinical Impressions Clinical Impression: Foreign body in skin Print Language Print Language: Kyr[place]z Discharge ED Provider: Chiki Mcdowell Adult HPI General Chief complaint: Wound/Laceration Stated complaint: poss broken needle in abd area Time Seen by Provider: 09/10/24 22:03 Mode of Arrival: Wheelchair Source of Information: Patient Limitations: No Limitations Description of Symptoms (Recalled from ER Triage Doc. by RN): Pt states he was giving himself insulin injection in the abd when he pulled the needle out he noted it was broken off Not sure if the needle remains in his abd or fell off the syringe History of Present Illness HPI narrative: Pierre Khalil is a 59y male with a history of IDDM, CKD, HTN, who presents to the ED for concern that his insulin needle got stuck in his abdomen. Patient states that he lost his insulin needle after injecting it near his left bellybutton jus t prior to arrival. He is unsure if it is still in his skin or fell to the floor. He states that the needle went into his skin, he injected the insulin, but when he pulled it out, the needle was missing. He is unsure if it fell off after injecting or if it is still stuck in his abdomen. He denies any pain or redness in the area. He is concerned it might become infected so he called EMS. Related Data Home Medications ?Medication ?Instructions ?Recorded ?Confirmed sodium,potassium,mag sulfates 17.5 177 ml PO DAILY Supplement 08/20/18 08/28/24 gram-3.13 gram-1.6 gram oral soln Previous Rx's ?Medication ?Instructions ?Recorded omeprazole 20 mg capsule,delayed 20 mg PO DAILY #30 caps 05/14/24 release potassium chloride 20 mEq 20 meq PO BID #60 tabs 05/14/24 tablet,extended release pravastatin 80 mg tablet 80 mg PO DAILY choleserol #30 tabs 05/14/24 apixaban 5 mg tablet (Eliquis) See Rx Instructions .Route 05/30/24 .COMPLEX #180 tabs diltiazem HCl 90 mg tablet See Rx Instructions .Route 05/30/24 .COMPLEX #270 tabs fluticasone 100 mcg-salmeterol 50 See Rx Instructions .Route 05/30/24 mcg/dose blistr powdr for .COMPLEX #180 blisters inhalation insulin lispro 100 unit/mL See Rx Instructions .Route 05/30/24 subcutaneous solution (Humalog .COMPLEX #180 mL U-100 Insulin) ipratropium bromide 0.02 % See Rx Instructions .Route 05/30/24 solution for inhalation .COMPLEX #360 ea lactulose 10 gram/15 mL oral See Rx Instructions .Route 05/30/24 solution .COMPLEX #1,350 mL semaglutide 2 mg/dose (8 mg/3 mL) See Rx Instructions .Route 05/30/24 subcutaneous pen injector (Ozempic) .COMPLEX #9 ea amiodarone 200 mg tablet 200 mg PO DAILY #90 tabs 06/02/24 blood-glucose sensor (Dexcom G7 #30 ea 06/04/24 Sensor device) cyclobenzaprine 10 mg tablet See Rx Instructions .Route 06/04/24 .COMPLEX #90 tabs lisinopril 20 mg tablet 20 mg PO DAILY blood pressure #30 06/04/24 tabs spironolactone 50 mg tablet See Rx Instructions .Route 06/04/24 .COMPLEX #90 tabs tamsulosin 0.4 mg capsule See Rx Instructions .Route 06/04/24 .COMPLEX #90 caps insulin syringe-needle U-100 1 mL #300 ea 06/06/24 30 gauge x 1/2 (BD Insulin Syringe Ultra-Fine) furosemide 80 mg tablet 80 mg PO TID #270 tabs 07/08/24 clonazepam 0.5 mg tablet 0.5 mg PO HS #30 tabs 08/12/24 gabapentin 600 mg tablet 600 mg PO QID #120 tabs 08/12/24 hydrocodone 10 mg-acetaminophen 1 tab PO QID PRN pain #120 tabs 08/12/24 325 mg tablet insulin glargine 100 unit/mL See Rx Instructions .Route 08/25/24 subcutaneous solution (Lantus .COMPLEX #180 mL U-100 Insulin) nitrofurantoin 100 mg PO BID #14 caps 09/01/24 monohydrate/macrocrystals 100 mg capsule (Macrobid) Allergies Allergy/AdvReac Type Severity Reaction Status Date / Time No Known Allergies Allergy Verified 08/28/24 09:26 [facility] Disclaimer: The information contained in this section may have been updated after the patient was seen, as this information can be updated by other users. Social History Smoking Status: Current every day smoker alcohol intake: never substance use type: denies use current occupational status: unemployed Travel in the last 8 weeks: None caffeine: No Have you lived/traveled outside [place] in past 30 days?: No Contact w/someone who lives/traveled outside [place] past 30 days?: No Exposure to someone with infectious disease in past 14 days?: No Do you have a fever (greater than 100.4 F or 38 C)?: No Have you tested positive for COVID-19: No Exposed to someone with COVID-19 in past 14 days?: No Do you have a sore throat?: No Do you have a cough?: No Do you have any weakness?: No Do you have any diarrhea?: No Are you experiencing any unusual bleeding?: No Do you have any muscle aches/pain?: No Do you have any abdominal pain?: No Are you experiencing loss of taste or smell?: No Other Medical History Have you received the Flu Vaccine for this season: No Have you received the Pneumonia Vaccine: Yes ROS Obtained: Yes Systems reviewed as appropriate & no additional complaints except as documented Physical Exam General General appearance: alert, in no apparent distress and obese Head Head exam: atraumatic Eye Eye exam: Present normal appearance ENT ENT exam: Present normal external ear exam Neck Neck exam: Present full ROM Chest Chest inspection: Present symmetric chest wall rise Respiratory Respiratory exam: Present normal lung sounds bilaterally; Absent respiratory distress Cardiovascular Cardiovascular exam: Present regular rate and normal rhythm Abdominal Exam Abdominal exam: Present soft and other (No erythema, swelling, or foreign bodies appreciated around the umbilicus/left abdomen); Absent distention, tenderness or guarding exam: Present deferred Extremities Exam Extremities exam: Present normal inspection Neurological Exam Neurological exam: Present alert and oriented X3 Psychiatric Psychiatric exam: Present normal affect Skin Skin exam: Present warm and dry Medical Decision Making Medical Records Screening: Per USPSTF and CDC recommendations, given the prevalence of disease in our region, it is our hospital?s policy to screen for HIV and viral Hepatitis for all patients aged 18 and over and those with ongoing risk factors. Kyrie Inquiry Pt receiving controlled substance: No Vital Signs: 09/10/24 21:51 09/10/24 22:29 Temperature 97.9 F 97.9 F Temperature Source Oral Oral Pulse Rate 97 H Pulse Rate [Right Brachial] 90 Respiratory Rate 20 20 Blood Pressure 158/71 H Blood Pressure [Right Arm] 171/90 H Blood Pressure Mean [Right Arm] 117 Blood Pressure Source Automatic Cuff Blood Pressure Source [Right Arm] Automatic Cuff Blood Pressure Position Sitting Blood Pressure Position [Right Arm] Sitting 02 Sat by Pulse Oximetry 97 Oxygen Delivery Method Room Air Room Air Orders (Tests/Meds): ORDERS Category Date Time Status POCUS Point of Care (ER Only) Stat Exams 09/10/24 22:04 Completed Medical Decision Narrative: Pierre Khalil is a 59y male with a past medical history of IDDM, HTN, CKD who presents to the ED for complaints of a possible insulin hypodermic needle stuck in his abdomen after injecting his home insulin tonight. Patient states that the needle was missing from the syringe after he injected it. He has no abdominal pain, no redness or swelling, and no obvious retained foreign bodies. The patient notes that the needle may have fallen off after he pulled it out but he is not sure. Due to concern that it might become infected, he presented to the ED. On arrival, he is hemodynamically stable, in no acute respiratory distress, and afebrile. His physical exam is grossly unremarkable. He has no abdominal tenderness, no redness, no swelling, no obvious foreign bodies. POCUS was used to try and identify and possible retained hyperechoic foreign body, however, non was identified. Given the patient has no pain, no tenderness, no evidence of a retained foreign body on physical exam or POCUS, it is felt that no additional studies are indicated at this time. The patient has follow up in the morning with his primary care provider. He was encouraged to follow up with them in the morning to reevaluate the area for any signs/symptoms concerning for infection. All questions were answered. He was in agreement with this plan. He was then discharged from the emergency department in stable condition. Procedures Limited Ultrasound Indication:: Foreign body, abdomen Views:: Soft tissue, abdomen Findings:: No hyperechoic foreign bodies were appreciated within the soft tissues of the abdominal wall. No abscesses. No cobblestoning. Interpretation:: Normal limited POCUS of the abdomen soft tissues Critical Care Critical Care Time Critical Care Time: No
[2024-09-10 22:29] VITALS: BP 158/71; PULSE 97; RESP 20; TEMP 36.6; O2SAT 99
== END 2024-09-10 22:30 | disposition home or self-care (01) ==
PROVIDERS: Emergency Provider Student in an Organized Health Care Education/Training Program; PCP Internal Medicine
DX: S30.851A Superficial foreign body of abdominal wall, initial encounter (principal); E11.9 Type 2 diabetes mellitus without complications; I12.9 Hypertensive chronic kidney disease with stage 1 through stage 4 chronic kidney disease, or unspecified chronic kidney disease; N18.9 Chronic kidney disease, unspecified; Z72.0 Tobacco use; Z79.4 Long term (current) use of insulin; W45.8XXA Other foreign body or object entering through skin, initial encounter; Y93.89 Activity, other specified; Y92.9 Unspecified place or not applicable
CPT/HCPCS: 99283

== ENCOUNTER 2024-11-06 11:53 | Outpatient (CLI) | payer MEDICARE, SELFPAY ==
--- NOTE | 2024-11-06 11:54 | XR_ITS ---
FINAL REPORT CLINICAL HISTORY: Right elbow pain at lateral epicondyle FINDINGS: AP and lateral views of the right elbow were performed. There is a moderate joint effusion. There is normal alignment. The radial head is intact. There is no acute bony abnormalities. There are no lytic or blastic bony abnormalities. There is mild irregularity of the lateral epicondyle. There is no periosteal reaction. There is no acute bony abnormality. IMPRESSION: 1. Moderate joint effusion. 2. Normal alignment. No acute bony abnormalities. 3. Irregularity of the lateral epicondyle. This may be posttraumatic. There is no periosteal reaction. Authenticated and ERN
== END 2024-11-06 23:59 | disposition home or self-care (01) ==
LOC: RAD 11:54
PROVIDERS: PCP Internal Medicine; Visit Provider Internal Medicine
DX: M77.11 Lateral epicondylitis, right elbow (principal)
CPT/HCPCS: 73070

== ENCOUNTER 2024-11-26 14:51 | Outpatient (CLI) | payer MEDICARE, SELFPAY ==
[2024-11-26 13:48] LABS: Basophils # 0.1 K/mm3 (0-0.2); Basophils % 1.1 % (0.1-2.0); Eosinophils # 0.3 K/mm3 (0.0-0.4); Eosinophils % 3.8 % (0.1-12.0); Hematocrit 36.2 % (42.0-52.0); Hemoglobin 12.4 g/dL (14.1-18.0); Lymphocytes # 1.8 K/mm3 (0.7-4.5); Lymphocytes % 21.2 % (10-50); Mean Corpuscular HGB Conc 34.3 g/dL (31.8-35.4); Mean Corpuscular Hemoglobin 29.1 pg (27.0-31.2); Mean Platelet Volume 9.6 fl (7.4-10.4); Monocytes # 0.7 K/mm3 (0.1-1.0); Monocytes % 8.5 % (1.7-9.3); Neutrophils # 5.4 K/mm3 (1.8-7.8); Neutrophils % 64.3 % (37.0-80.0); Nucleated Red Blood Cells # 0 10^3/uL; Nucleated Red Blood Cells % 0 %; Platelet Count 175 K/mm3 (142-424); Red Blood Count 4.26 M/mm3 (4.60-6.20); Red Cell Distribution Width 16.4 % (11.5-17.5); Red Cell Distribution Width-SD 50.1 fL; White Blood Count 8.5 K/mm3 (4.8-10.8)
[2024-11-26 14:21] LABS: Albumin Level 3.8 g/dl (3.5-5.0); Alkaline Phosphatase 93 U/L (38-126); Blood Urea Nitrogen 23 mg/dl (9-20); Calcium 10.4 mg/dl (8.4-10.2); Carbon Dioxide 29 mmol/L (22.0-30.0); Estimated Glomerular Filt Rate 62 ml/min (>60); GFR (African American) 76 ML/MIN (>60); Glucose 68 mg/dl (74-100); HDL Cholesterol 53 mg/dl (40-60); Potassium 4.2 mmoL/L (3.5-5.1); Sodium 137 mmol/L (136-145)
[2024-11-26 14:31] LABS: Alanine Aminotransferase 24 U/L (12-78); Albumin/Globulin Ratio 1.1 (1.1-1.8); Anion Gap 13.2 mEq/L (5-15); Aspartate Amino Transferase 30 U/L (17-59); Chloride 99 mmol/L (98-107); Chol/HDL Ratio 3.1 (1-3.5); Cholesterol 164 mg/dl (140-200); Globulin 3.4 g/dL (1.3-3.2); Total Protein,Serum 7.2 g/dl (6.3-8.2); Triglycerides 140 mg/dl (30-150); VLDL Cholesterol 28 mg/dL (0-40)
[2024-11-26 14:33] LABS: Direct LDL Cholesterol 75.74 mg/dL (100-129)
[2024-11-26 14:44] LABS: Microalbumin/Creatinine Ratio 120.3
[2024-11-26 14:53] LABS: Prostate Specific Ag Screen 0.5 ng/ml (0.0-4.0); Thyroid Stimulating Hormone 0.79 uIU/mL (0.465-4.68)
[2024-11-26 15:04] LABS: Free T4 (Free Thyroxine) 1.78 ng/dl (0.78-2.19)
[2024-11-26 15:11] LABS: Creatinine,Urine Random 33 mg/dL (Not Estab.)
[2024-11-26 17:55] LABS: Hemoglobin A1C 5.7 % (4.0-6.0)
== END 2024-11-26 23:59 | disposition home or self-care (01) ==
LOC: LAB.DROPOF 14:51
PROVIDERS: PCP Internal Medicine; Visit Provider Internal Medicine
DX: Z12.5 Encounter for screening for malignant neoplasm of prostate (principal); E11.59 Type 2 diabetes mellitus with other circulatory complications; E11.42 Type 2 diabetes mellitus with diabetic polyneuropathy; I12.9 Hypertensive chronic kidney disease with stage 1 through stage 4 chronic kidney disease, or unspecified chronic kidney disease; E11.22 Type 2 diabetes mellitus with diabetic chronic kidney disease; N18.9 Chronic kidney disease, unspecified; Z79.4 Long term (current) use of insulin; Z79.85 Long-term (current) use of injectable non-insulin antidiabetic drugs; Z79.899 Other long term (current) drug therapy; K74.60 Unspecified cirrhosis of liver; E78.5 Hyperlipidemia, unspecified
CPT/HCPCS: 80053; 80061; 82043; 82570; 83036; 84439; 84443; 85025; G0103

== ENCOUNTER 2025-02-18 15:56 | Emergency (ER) | payer MEDICARE, SELFPAY ==
--- OUTSIDE RECORDS SUMMARY | 2025-02-18 16:08 | XMS_ITS | Clinical Summary ---
Author Organization Healthcare Address [address] [place] [address] Care Team Providers Care Booster Assembler Name Role Phone Jam Torres MD Primary Care Provider [phone] Allergies Active Allergy Reactions Criticality Noted Date Comments Egg-Derived Products Hives Medium 01/14/2023 Medications pravastatin (Pravachol) 80 MG tablet Take 1 tablet (80 mg) by mouth 1 (one) time each day. Active amiodarone (Pacerone) 200 MG tablet Take 1 tablet (200 mg) by mouth 1 (one) time each day. Active apixaban (Eliquis) 5 MG tablet Take 1 tablet (5 mg) by mouth 2 (two) times a day. Active metFORMIN (Glucophage) 1000 MG tablet Take 0.5 tablets (500 mg) by mouth 2 (two) times a day with meals. Active ipratropium (Atrovent) 0.02 % nebulizer solution Take 2.5 mL (0.5 mg) by nebulization every 6 (six) hours. Active lactulose (Chronulac) 10 GM/15ML solution Take 15 mL (10 g) by mouth 1 (one) time each day. Active omeprazole (PriLOSEC) [address] capsule Take 1 capsule (20 mg) by mouth 1 (one) time each day. Do not crush or chew. Active Semaglutide, 2 MG/DOSE, (Ozempic, 2 MG/DOSE,) 8 MG/3ML solution pen-injector Inject 2 mg under the skin 1 (one) time per week. Active gabapentin (Neurontin) 600 MG tablet Take 1 tablet (600 mg) by mouth 2 (two) times a day. Caution: This medication can make you sleepy 4 Active cyclobenzaprine (Flexeril) 10 MG tablet Take 1 tablet (10 mg) by mouth every night. Caution: This medication can make you sleepy 4 Active clonazePAM (KlonoPIN) 0.5 MG tablet Take 1 tablet (0.5 mg) by mouth at night if needed for anxiety. Caution: This medication can make you sleepy 4 Active HYDROcodone-may taminophen ([place]) 10-325 MG tablet Take 1 tablet (10 mg of hydrocodone) by mouth every 6 (six) hours if needed for severe pain. Caution: This medication can make you sleepy 4 Active insulin glargine (Lantus SoloStar) 100 UNIT/ML injection pen Inject 30 Units under the skin 1 (one) time each day in the morning. 4 Active Insulin Lispro (Admelog, HumaLOG) 100 UNIT/ML injection vial Inject 0-0.16 mL (0-16 Units) under the skin 3 (three) times a day with meals. Follow the mealtime/sliding scale instructions from your Discharge Instructions/Aft er Visit Summary 4 Active naloxone (Narcan) 4 mg/0.1 mL nasal spray 1. Give 1 spray in nostril for no/slow breathing or cannot wake after opioid use 2. Call 911 3. Repeat in other nostril if symptoms continue 1 each 4 Active pen needle, diabetic 31G X 5 MM misc Use as directed with insulin pen. 100 each 11 4 Active pen needle, diabetic 31G X 5 MM misc Use as directed with insulin pen. 100 each 11 4 Active Active Problems Problem Noted Date Diagnosed Date Stage 4 chronic kidney disease 01/12/2023 Anasarca associated with disorder of kidney 03/2023 Azotemia 07/23/2022 CKD (chronic kidney disease) stage 4, GFR 15-29 ml/min 05/28/2022 Hyperkalemia 05/28/2022 Essential hypertension 05/28/2022 Anemia due to stage 4 chronic kidney disease Morbid obesity with body mass index (BMI) of 40. 0 or higher 05/18/2022 Anasarca Resolved Problems Problem Noted Date Diagnosed Date Resolved Date Enterococcal septicemia 08/01/202407/14 ATN (acute tubular necrosis) 07/28/2024 08/04/2024 Immunizations Immunization Administration Dates Next Due Pneumococcal, Unspecified 03/31/2010 Family History Medical History Relation Name Comments Diabetes Father Diabetes Mother Heart disease Mother Kidney disease Mother Relation Name Status Comments Father Mother Social History Tobacco Use Types Packs/Day Years Used Date Smoking Tobacco: Every Day Cigarettes Passive Smoke Exposure: Current Smokeless Tobacco: Never Tobacco Cessation:Ready to Q uit: Not Asked; Counseling Given: Not Answered Alcohol Use Standard Drinks/Week Comments Not Currently 0 (1 standard drink = 0.6 oz pur e alcohol) Humiliation, Afraid, Rape, and Kick questionnair e Answer Date Recorded Within the last year, have y ou been afraid of your partner or ex-partner? Patient declined 07/28/2024 Within the last year, have y ou been humiliated or emotionally abused in other ways by your partner or ex-partner? Patient declined 07/28/2024 Within the last year, have y ou been kicked, hit, slapped, or otherwise physically hurt by your partner or ex-partner? Patient declined 07/28/2024 Within the last year, have y ou been raped or forced to have any kind of sexual activity by your partner or ex-partner? Patient declined 07/28/2024 Social Connection and Isolation Panel Answer Date Recorded Frequency of Communication with Friends and Fami ly Not on file 07/28/2024 Frequency of Social Gatherings with Friends and Family Not on file 07/28/2024 Attends [employer] Services Not on file 07/28 Active Member of Clubs or Organizations Not on f ile 07/28/2024 Attends Club or Organization Meetings Not on angelika e 07/28/2024 Are you , , di vorced, , never , or living with a partner? 07/28/2024 Overall Financial Resource Strain (CARDIA) Answe r Date Recorded How hard is it for you to pa y for the very basics like food, housing, medical care, and heating? Not very hard 07/28/2024 Hunger Vital Sign Answer Date Recorded Within the past 12 months, y ou worried that your food would run out before you got the money to buy more. Never true 07/28/20 24 Ran Out of Food in the Last Year Not on file 07/28/2024 PRAPARE - Transportation Answer Date Re corded In the past 12 months, has l ack of transportation kept you from medical appointments or from getting medications? No 07/13 In the past 12 months, has l ack of transportation kept you from meetings, work, or from getting things needed for daily living? No 07/28/2024 Housing Stability Vital Sign Answer Jose e Recorded In the last 12 months, was t here a time when you were not able to pay the mortgage or rent on time? No 07/28/2024 In the past 12 months, how m any times have you moved where you were living? 2 07/28/2024 At any time in the past 12 m [facility], were you homeless or living in a [place] facility (including now)? No 07/28/2024 CAGE ASSESSMENT Answer Date Recorded Cage unable to access Not on file 01/21/2023 Cage max number of drinks Not on file 2022 Cage Beverages a week Not on file 01/21/2023 Have you ever felt you should CUT down on your d rinking? 0 01/21/2023 Have you been ANNOYED by people criticizing your drinking? 0 01/21/2023 Have you felt GUILTY about your drinking? 0 01/21/2023 Have you had a drink first t willis in the morning (EYE-FLUME RIDE OPERATOR) to steady your nerves or to get rid of a hangover? 0 01/21/2023 CAGE Questionnaire Score 0 023 Utilities Answer Date Recorded In the past 12 months has th e electric, gas, oil, or water company threatened to shut off services in your home? No 07/28/2024 Sex and Gender Information Value Date Recorded Sex Assigned at Not on file Legal Sex Male 7:35 PM EDT Gender Identity Not on file Sexual Orientation Not on file Last Filed Vital Signs Vital Sign Reading Time Taken Comments Blood Pressure 108/66 08/04/2024 7:19 AM EST Pulse 69 08/04/2024 7:19 AM EST Temperature 36.3 C (97.4 F) 08/04/2024 7:19 AM EST Respiratory Rate 16 08/04/2024 7:19 AM EST Oxygen Saturation 97% 08/04/2024 7:19 AM EST Inhaled Oxygen Concentration - - Weight 176 kg (389 lb) 07/31/2024 6:00 AM EST Height 193 cm (6' 4 ) 07/28/2024 11:17 AM EST Body Mass Index 47.35 07/28/2024 11:17 AM EST Plan of Treatment Health Maintenance Due Date Last Done Comments [facility]-Depression Screening 1967 [facility]-Medicare Annual Wellness (AWV) 1967 [facility]-/Child/Adol SDOH Screenings 1967 Diabetes: Dental Exam 1977 [facility]-DTaP,Tdap,and Td Vaccines (1 - Tdap) 1986 [facility]-Hepatitis A Vaccines (1 of 2 - Risk 2-dose series) 1986 [facility]-Hepatitis B Vaccines (1 of 3 - 19+ 3-dose series) 1986 CT Colonography 2012 Colonoscopy 2012 FIT-DNA 2012 FIT 2012 FOBT 2012 Sigmoidoscopy 2012 [facility]-Colorectal Cancer Screening 2012 [facility]-Pneumococcal Vaccine: 50+ Years (2 of 2 - PPSV23) 10/28/2015 09/02/2015, 03/31/2010 [facility]-Zoster Vaccines (1 of 2) 2017 [id number] Vaccine (3 - season) 2024 06/30/2021, 11/16/2020 [facility]-Diabetes: Hemoglobin A1C 01/25/2025 07/28/2024, 12/19/2022 [facility]- SDOH Screenings 01/26/2025 [facility]-Adult SDOH Screenings 01/26/2025 07/28/2024 [facility]-Influenza Vaccine (#1) 2025 05/21/2024 [facility]-HIV Screening Completed 07/28/2024, 12/18/2022 [facility]-Hepatitis C Screening Completed 2023, 07/28/2024, 07/28/2024, Additional history exists [facility]-Obesity Intervention Completed 024, 09/25/2022, 07/13/2022, Additional history exists HPV Vaccines Aged Out No longer eligi ble based on patient's age to complete this topic [facility]-HIB Vaccines Aged Out No longer e ligible based on patient's age to complete this topic [facility]-IPV Vaccines Aged Out No longer e ligible based on patient's age to complete this topic [facility]-Rotavirus Vaccines Aged Out No lo nger eligible based on patient's age to complete this topic Procedures Procedure Name Priority Date/Time Associated Diagnosis Comments HEMOGLOBIN A1C Routine 07/28/2024 5:53 AM EST HEPATITIS C ANTIBODY - ED W/REFLEX TO HCV QUANT PCR STAT 07/28/2024 2:49 AM EST ED HIV 1/2 ANTIBODY/ANTIGEN SCREEN WITH REFLEX TO HIV I/II DIFFERENTIATION STAT 07/28/2024 2:49 AM EST from Last 3 Months or Most Recently Relevant to Health Maintenance Results * (ABNORMAL) Hemoglobin A1c (07/28/2024 5:53 AM EST) Hemoglobin A1c 6.0(H) <5.7 % 07/28/2024 6:27 AM EST [facility] Blood Venous blood specimen / Unknown Venipuncture / Unknown 07/28/2024 5:53 AM EST 07/28/2024 6:02 AM EST Narrative [facility] - 07/28/2024 6:27 AM EST HA1C Interpretive Data: Diagnosis of Diabetes: Diabetic > or = 6.5% Pre-diabetic 5.7 to 6.4% Non-diabetic < or = 5.6% Glycemic Targets for Type I and Type II Diabetics: Non- Adults <7.0% Adults <6.0% Children and Adolescents <7.5% Source: [place] [employer]. Standards of medical care in diabetes,2017. Diabetes Care.2017:40 (suppl 1):S1-S135. HbA1c assay performed by an ion-exchange chromatography method that is certified traceable to the DCCT. Ayah Briggs YOGA TEACHER, DNP LAB BLOOD ORDERABLES Final Result Performing Organization Address City/[facility]/ZIP Co de Phone Number [facility] [address] [place] [address] * ED HIV 1/2 Antibody/Antigen Screen w/Reflex to HIV 1/2 Differentiation (07/28/2024 2:49 AM EST) Pathologist [facility] HIV 1 & 2 Antibody/Antigen Screen Non Reactive Non Reactive 07/28/2024 3:53 AM EST [facility] Comment:Screening for HIV 1 & 2 antibodies, and P24 antigen is NONREACTIVE. No confirmatory testing is required. Blood Venous blood specimen / Unknown Venipuncture / Unknown 07/28/2024 2:49 AM EST 07/28/2024 3:07 AM EST Es Lamar MD LAB BLOOD ORDERABLES Final Re sult Performing Organization Address City/[facility]/ZIP Co de Phone Number [facility] [address] [place] [address] * Hepatitis C Antibody - ED (07/28/2024 2:49 AM EST) [facility] Hepatitis C Antibody Negative Negative 07/28/2024 3:50 AM EST [facility] Blood Venous blood specimen / Unknown Venipuncture / Unknown 07/28/2024 2:49 AM EST 07/28/2024 3:06 AM EST Es Lamar MD LAB BLOOD ORDERABLES Final Re sult [facility] [address] [place] [address] from Last 3 Months or Most Recently Relevant to Health Maintenance Insurance MEDICARE Advance Directives * Full Code (Latest Code Status on File) Date Activated Date Inactivated Comments 07/28/2024 2:56 AM 08/04/2024 2:54 PM Question Answer Comments Patient has decision-making capacity? Yes * DNR/DNI Date Activated Date Inactivated Comments 01/24/2023 11:03 AM 07/28/2024 2:56 AM Question Answer Comments DNR determined on/before admission date? Yes * DNR/DNI Date Activated Date Inactivated Comments 01/24/2023 10:46 AM 01/24/2023 11:03 AM Question Answer Comments DNR determined on/before admission date? Yes * DNR/DNI Date Activated Date Inactivated Comments 01/09/2023 8:48 PM 01/24/2023 10:46 AM Question Answer Comments DNR determined on/before admission date? Yes Patient has decision-making capacity? Yes * Full Code Date Activated Date Inactivated Comments 12/18/2022 8:20 PM 12/20/2022 4:45 PM Question Answer Comments Patient has decision-making capacity? Yes Care Teams Booster Assembler Relationship Specialty Start Date End Date Jam Torres MD [address] [facility] [address] [place] [address] PCP - General 04/05/22
--- OUTSIDE RECORDS SUMMARY | 2025-02-18 16:08 | XMS_ITS | Clinical Summary ---
Author Organization [employer] ([place], [place], [place], [place]) Address [address] [place] [address] Care Team Providers Care Automotive Brake Specialist Name Role Phone Jam Torres MD Primary Care Provider [phone] Allergies No known active allergies Medications cyclobenzaprine (FLEXERIL) 10 MG tablet Take 1 tablet (10 mg total) by mouth nightly. 0 3 Active lisinopriL (PRINIVIL,ZESTR IL) 20 MG tablet Take 1 tablet (20 mg total) by mouth daily. 0 3 Active metFORMIN (GLUCOPHAGE) 500 MG tablet Take 1 tablet (500 mg total) by mouth 2 (two) times daily with breakfast and dinner. 0 3 Active mometasone-form oterol (DULERA) 100-5 mcg/actuation inhaler Inhale 2 puffs by mouth via inhaler 2 (two) times daily. 0 3 Active pantoprazole (PROTONIX) 20 MG tablet Take 1 tablet (20 mg total) by mouth daily. 0 3 Active potassium chloride SA (K-DUR,KLOR-CON -M) 20 MEQ tablet Take 1 tablet (20 mEq total) by mouth in the morning. 0 3 Active acetaminophen (TYLENOL) 325 MG tablet Take 1 tablet (325 mg total) by mouth every 6 (six) hours as needed. 30 tablet 3 Active amiodarone (PACERONE) 200 MG tablet Take 1 tablet (200 mg total) by mouth daily. 0 3 Active apixaban (Eliquis) 5 mg Tab tablet Take 1 tablet (5 mg total) by mouth 2 (two) times daily. 0 3 Active dilTIAZem (CARDIZEM) 90 MG tablet Take 1 tablet (90 mg total) by mouth 3 (three) times daily. 0 3 Active gabapentin (NEURONTIN) 300 MG capsule Take 2 capsules (600 mg total) by mouth 3 (three) times daily. Max Daily Amount: 1,800 mg 0 3 Active insulin lispro (HumaLOG) 100 unit/mL injection Sliding Scale. Use as directed. 10 mL 3 Active ipratropium-alb uteroL (DUO-NEB) 0.5 mg-3 mg(2.5 mg base)/3 mL nebulizer solution Take 3 mLs by nebulization every 4 (four) hours as needed for Wheezing. 0 3 Active polyethylene glycol (GLYCOLAX) 17 gram/dose powder Take 17 g by mouth daily. 255 g 3 Active pravastatin (PRAVACHOL) 80 MG tablet Take 1 tablet (80 mg total) by mouth daily. 0 3 Active tamsulosin (FLOMAX) 0.4 mg Cap 24 hr capsule Take 1 capsule (0.4 mg total) by mouth daily. 0 3 Active Active Problems Problem Noted Date Diagnosed Date Weakness 04/18/2023 Obstructive uropathy 03/22/2023 Urinary tract infection due to ESBL Klebsiella 0 03/22/2023 CKD (chronic kidney disease) stage 4, GFR 15-29 ml/min 03/22/2023 Atrial fibrillation 03/22/2023 HTN (hypertension) 03/22/2023 joint terminal attack controller (current) use of anticoagulants 2022 Chronic heart failure with p reserved ejection fraction (HFpEF) 03/22/2023 Chronic respiratory failure with hypoxia 023 Obesity hypoventilation syndrome 03/22/2023 Obstructive sleep apnea 03/22/2023 DM2 (diabetes mellitus, type 2) 03/22/2023 Social History Tobacco Use Types Packs/Day Years Used Date Smoking Tobacco: Former Cigarettes Tobacco Cessation:Counseling Given: Not Answered Alcohol Use Standard Drinks/Week Comments Not Currently 0 (1 standard drink = 0.6 oz pur e alcohol) PRAPARE - Transportation Answer Date Re corded In the past 12 months, has l ack of transportation kept you from medical appointments or from getting medications? No 03/22/2023 Lack of Transportation (Non-Medical) Not on file 03/22/2023 Food Insecurity Answer Date Recorded Food run out past 12 months Not on file 08/13 Food did not last past 12 months Not on file 08/25/2023 Employment Answer Date Recorded Help finding and keeping a job Not on file 0 08/25/2023 Family and Community Support Answer Jose e Recorded Help with Day to Day Activities Not on file 08/25/2023 Feeling Lonely or Isolated Not on file 08/25 Educational Attainment Answer Date Paulino rded Speak language other than Uzbek at home Not on file 08/25/2023 Want help with school or training Not on file 08/25/2023 Substance Use Answer Date Recorded Used prescription meds for non-medical reasons N ot on file 08/25/2023 Used illegal drugs past 12 months Not on file 08/25/2023 Sex and Gender Information Value Date Recorded Sex Assigned at Not on file Legal Sex Male 5:30 PM CDT Gender Identity Not on file Sexual Orientation Not on file Last Filed Vital Signs Vital Sign Reading Time Taken Comments Blood Pressure 133/62 04/28/2023 11:00 PM EDT Pulse 103 04/28/2023 11:00 PM EDT Temperature 36.2 C (97.1 F) 04/28/2023 1:10 PM EDT Respiratory Rate 18 04/28/2023 1:10 PM EDT Oxygen Saturation 96% 04/28/2023 11:00 PM EDT Inhaled Oxygen Concentration 44% 04/24/2023 7 :32 AM EDT Weight 172 kg (379 lb 3.1 oz) 04/28/2023 1:10 PM EDT Height 193 cm (6' 4 ) 04/28/2023 1:10 PM EDT Body Mass Index 46.16 04/28/2023 1:10 PM EDT Plan of Treatment Health Maintenance Due Date Last Done Comments CT Colonography 1967 Colonoscopy 1967 Colorectal Cancer Screening 1967 Diabetic Kidney Health Evaluation (KED) 1967 FOBT/FIT 1967 Fit-DNA (Cologuard) 1967 Sigmoidoscopy 1967 Diabetic Eye Exam 1977 Depression Screening (12+) 1979 HIV Screening 1982 Hepatitis C Screening 1985 DTAP/TDAP/TD VACCINES (1 - Tdap) 1986 Pneumococcal 50+ years (1 of 2 - PCV) 1986 Shingles Vaccine (Zoster) (1 of 2) 2017 Medicare Initial AWV [id number] 09/14/2022 Hemoglobin A1C 10/17/2023 04/18/2023 COVID-19 VACCINE ( - 2023- season) 2024 Tobacco Cessation Counseling and Screening (12+) 04/1704/17/2023 Influenza Vaccine (#1) 2025 Lipid Panel 01/10/2026 01/10/2023 Procedures Procedure Name Priority Date/Time Associated Diagnosis Comments HEMOGLOBIN A1C Add-On 04/18/2023 7:53 PM EDT from Last 3 Months or Most Recently Relevant to Health Maintenance Results * Hemoglobin A1c (04/18/2023 7:53 PM EDT) Hemoglobin A1C 7.1 % 04/19/2023 7:50 AM EDT [facility] Comment: Hemoglobin A1C levels are related to mean glucose during the preceding 2-3 months. Less than 7% demonstrates glycemic control in diabetic patients. Hemoglobin AlC % Suggested Diagnosis > or = 6.5 Diabetic 5.7 - 6.4 Prediabetic <5.7 Non-diabetic eAVG Glucose 157.07 mg/dL 04/19/2023 7:50 AM EDT [facility] Blood Venipuncture / Unknown 04/18/2023 7:53 PM EDT 04/18/2023 8:05 PM EDT Roberto Wood PA-C LAB BLOOD ORDERABLES Final Result [facility] [address] [place] [address], [facility] [phone] from Last 3 Months or Most Recently Relevant to Health Maintenance Insurance [employer] MEDICARE PPO MEDICAID [place] Advance Directives For more information, please contact: [phone] * Full Code (Latest Code Status on File) Date Activated Date Inactivated Comments 04/18/2023 8:42 PM 04/25/2023 6:19 PM * DNR - Limited Additional Intervention Date Activated Date Inactivated Comments 04/12/2023 3:00 PM 04/17/2023 7:47 PM If no pulse: NO intervention If has pulse: NO Intubation. May use BiPAP/CPAP Call SAMPLE SELECTOR * DNR - Comfort Measures Date Activated Date Inactivated Comments 04/04/2023 10:12 PM 04/12/2023 3:00 PM Do not init iate Code Blue; Do not transfer to higher level of care * DNR - Comfort Measures Date Activated Date Inactivated Comments 04/04/2023 5:19 PM 04/04/2023 10:12 PM If no pulse : NO intervention If has pulse: NO Intubation, NO Chest Compressions, NO Cardioversion, NO ACLS meds; relieve pain and suffering with medications by any route. Call attending or palliative care for comfort orders. * Full Code Date Activated Date Inactivated Comments 03/22/2023 7:34 PM 04/04/2023 5:19 PM -Attempt Res uscitation if person has no pulse and is not breathing. -If no pulse or not breathing attempt CPR/CODE. -Call Rapid Response if patient is in distress. Healthcare Agents on File Name Relationship Healthcare Agent [facility] Communication Robson Khalil Brother First Alternate Healthcare Decision-Maker Care Teams Automotive Brake Specialist Relationship Specialty Start Date End Date Jam Torres MD [address] [place] [address] [place] [id number] PCP - General General Internal Medicine 04/18/23
--- OUTSIDE RECORDS SUMMARY | 2025-02-18 16:08 | XMS_ITS ---
Author Organization Unknown TREATMENT PLAN [facility] Start Date Provider Encounter for Check-up [id number] [facility]
--- OUTSIDE RECORDS SUMMARY | 2025-02-18 16:08 | XMS_ITS | Referral Summary ---
Author Organization [employer] ([place], [place], [place], [place]) Address [address] [place] [address] Care Team Providers Care Tub Washer Name Role Phone Jam Torres MD Primary Care Provider [phone] Allergies No known active allergies Medications cyclobenzaprine [...] 03/22/2023 Atrial fibrillation 03/22/2023 HTN (hypertension) 03/22/2023 [facility] (current) use of anticoagulants 2022 Chronic heart [...] Date Paulino rded Speak language other than [place] at home Not on file 08/25/2023 Want [...] 04/28/2023 1:10 PM EDT Plan of Treatment Not on file Procedures Procedure Name Priority Date/Time Associated Diagnosis Comments HEMOGLOBIN A1C Add-On 04/18/2023 7:53 PM EDT from Last 3 Months or Most Recently Relevant to Health Maintenance Results * Hemoglobin A1c (04/18/2023 7:53 PM EDT) Hemoglobin A1C 7.1 % 04/19/2023 7:50 AM EDT [facility] Comment: Hemoglobin A1C levels are related to mean glucose during the preceding 2-3 months. Less than 7% demonstrates glycemic control in diabetic patients. Hemoglobin AlC % Suggested Diagnosis > or = 6.5 Diabetic 5.7 - 6.4 Prediabetic <5.7 Non-diabetic eAVG Glucose 157.07 mg/dL 04/19/2023 7:50 AM EDT [facility] Blood Venipuncture / Unknown 04/18/2023 7:53 PM EDT 04/18/2023 8:05 PM EDT Roberto Wood PA-C LAB BLOOD ORDERABLES Final Result [facility] [address] [phone] from Last 3 Months or Most Recently Relevant to Health Maintenance Insurance MEDICAID [place] Advance Directives For more information, please contact: [phone] * Full Code (Latest Code Status on File) Date Activated Date Inactivated Comments 04/18/2023 8:42 PM 04/25/2023 6:19 PM * DNR - Limited Additional Intervention Date Activated Date Inactivated Comments 04/12/2023 3:00 PM 04/17/2023 7:47 PM If no pulse: NO intervention If has pulse: NO Intubation. May use BiPAP/CPAP Call RADIO COMMENTATOR * DNR - Comfort Measures Date Activated [...] Agents on File Name [facility] Robson Khalil Brother First Alternate Healthcare Decision-Maker Care Teams Tub Washer Relationship Specialty Start Date End Date Jam Torres MD [address] [place] [address] PCP - General General Internal Medicine 04/18/23
--- OUTSIDE RECORDS SUMMARY | 2025-02-18 16:08 | XMS_ITS | Data Portability ---
Author Organization [facility][1] [facility] Address [address] [place] [id number] Assessment No assessment recorded. Plan of Treatment Reminders Order Date Submit Date Provider Last Modified By Organization Details Last Modified Time Details Appointments None recorded. Lab None recorded. Referral None recorded. Procedures None recorded. Surgeries None recorded. Imaging electrocard iogram 2022 023 [facility], [address], [place], [address], 18:11:12 Medication Orders Eliquis 5 mg tablet 2022 023 [facility] (Now [facility]), [address], [place], [address], 17:20:39 diltiazem 90 mg tablet 2022 023 [facility] ([facility]), [address], [place], [address], 17:20:39 amiodarone 200 mg tablet 2022 023 [facility] ([facility]), [address], [place], [address], 17:20:40 Patient TargetsNo targets recorded. Patient Instructions Encounter Date Encounter Id Patient Instructions Last Modified By Organization Details Last Modified Time 11/21/2022 [id number] Quitting Tobacco : Care Instructions lseivers Not available 11/21/2022 17:20:37 Reason for Referral None Reported. Results Created Date Observation Date Name Description Value Unit Range Abnormal Flag Note LastModifiedBy Organization Detail LastModifiedTime 11/22/19 23 11/21/2022 elect isatu diogr am No observ ation record ed. [facility] [address], [place], [address], 11/22/2022 09:03:53 11/22/1911/21/2022 elect isatu diogr am No observ ation record ed. [facility] [address], [place], [address], 11/21/2022 18:11:12 11/22/19 23 11/02/2022 US, echoc ardio gram, trans thora cic, compl ete, w/ color flow No observ ation record ed. vitaliy Not Available 11/11 18:20:21 Result Notes None recorded. Problems Name Problem SNOMED Code Status Onset Date Resolution Date Notes Provider Name and Address Organization Details Recorded Time Atrial fibrillatio n with rapid ventricular response 8799796673729 09 Active Rosa Vipul null, [place] - [facility] - [place] & [place] 3 12:59:42 Diabetic ketoacidosi s 086642736 Active Rosa Vipul null, [place] [facility] [place] & [place] 3 12:59:42 Renal failure syndrome 11678374 Active Rosa Vipul [place], [place] [facility] [place] & [place] 3 12:59:42 Acute urinary tract infection 395339410 Active Maryvenu Moreau null, [place] - [facility] [place] & [place] 3 14:46:15 Edema due to fluid overload 082790097 Active Mary Moreau null, [place] [facility] [place] & [place] 3 14:46:15 Diabetes mellitus 28587008 Active Mary Moreau null, [place] - [facility] - [place] & [place] 3 14:46:15 Problem Notes Documentation Provider Name and Address Organization Details Recorded Time Hospital Consult Note : Consult History and Physical [facility] Name Pierre Khalil Date of Service 1541 [id number] (M) Attending YIMI Barba Admitted [id number] Discharged Primary LILA Garza Chief Complaint Urinary retention and scrotal swelling History of Present Illness 57 yowm presented to [facility] ER on 12/26/2022 for further evaluation of shortness of breath, urinary retention, and increased swelling. Pt was admitted to [facility] in [place] last week r/t renal failure and swelling. Stewart cath was placed and he was diuresed. Reports on Sunday developed inability to urinate. States scrotal swelling started approx 2-3 months ago. Denies any fever, chills, nausea, vomiting, and gross hematuria. Patient has a past medical history of diabetes, hypertension, AFib, neuropathy, chronic peripheral edema, and GERD. Patient was admitted to [facility] ICU after being air flighted from [facility] on 11/01/2022 related to initiation of dialysis. At this time his serum creatinine was 8.7 and BUN was 110. Patient had 2 dialysis treatments and was supposed to follow-up with nephrology. Patient reports he sees a environmental systems coordinator at the [facility]. Patient reports he has a history of urinary tract infections. Reports he gets a UTI 1 at least every 3 months. Reports when he has UTI will experience dysuria and trouble urinating. Reports antibiotics helps with the UTI symptoms. Patient had a CT scan of abdomen pelvis with IV contrast on 12/25/2022 that revealed bilateral pleural effusions. Ascites, possibly on the basis of cirrhosis. Patient had a ascites ultrasound on 12/26/2022 that revealed small amount of fluid in the right lower quadrant however given the patient's body habitus and adjacent bowel paracentesis was felt unsafe by ultrasound and recommended a CT-guided paracentesis. Patient reports he typically weighs around 420 lb weight currently 464.5. Patient had an echocardiogram from October 2022 that revealed normal LV with ejection fraction of 75-80%. Procalcitonin was 0.11 and CRP was 1.4. White blood cell count was normal at 6.1. BUN 30 and creatinine was 2.2. Urinalysis was positive for nitrates, 500 leuks, and 4+ bacteria. Urine culture results still pending. Patient is on Rocephin 1 g IV every 24 hours. Patient is also on Lasix drip. History of right AKA 16 years ago. Past Medical History Gastroesophageal reflux disease Hyperlipidemia Benign prostatic hyperplasia Neuropathy Chronic pain Hypertensive disorder Diabetes mellitus Past Surgical History Amputation of lower limb, Right Social History tobacco use Heavy Tobacco Smoker, 0 yrs, Smoking Cessation Refused alcohol use No Known Use drug use No Known Use marital status Family History Parents Father Motor vehicle accident victim @ unknown age Unknown problems Mother @ unknown age Diabetes mellitus; Hypertensive disorder Allergies No Known Allergies 1 of 4 Consult History and Physical [facility] Name Pierre Khalil Date of Service 1545 [id number] (M) Attending YIMI Barba Admitted [id number] Discharged Primary LILA Garza Active Medications protein liquid (PRO-STAT) 30 ML PO BID saccharomyces boul (FLORASTOR) 250 MG PO BID MIRALAX PACKET 17 GM PO DAILYPRN for CONSTIPATION sodium chloride 0.9% FLUSH 10 ML IV PUSH PRN for FLUSH IV LINE furosemide (LASIX) 100 MG/10 ML 100 MG IV Continuous 10 ML/HR sodium chloride 0.9% 100 ML insulin lispro (HumaLOG) PEN 100 UNIT/ML Sliding Scale Dose SUBCUT ACHS cefTRIAXone (ROCEPHIN) 1 GM IV Q24H 100 ML/HR sodium chloride 0.9% MB+ 50 ML simvastatin (ZOCOR) 40 MG PO DAILY pantoprazole (PROTONIX) 40 MG PO ACB diltiaZEM (CARDIZEM) 90 MG PO TID cyclobenzaprine (FLEXERIL) 10 MG PO DAILY amiodarone (CORDARONE) 200 MG PO DAILY Amiodarone 400mg po continue until 09 November,then decrease dose to 200mg po daily NORCO 10-325 MG 1 TAB PO Q4HPRN for SEVERE PAIN 7-10 PAIN SCALE tamsulosin (FLOMAX) 0.4 MG PO PCB apixaban (ELIQUIS) 5 MG PO BID baby aspirin (ERIC) 81 MG PO DAILY gabapentin (NEURONTIN) 300 MG PO QNOON insulin glargine-yfgn 100 UNIT/ML 50 UNT SUBCUT QPM nystatin (NYSTOP) POWDER 60 GM 1 BETZAIDA TOPICAL PRN for OTHER (SEE COMMENT) clonazePAM (KlonoPIN) 0.5 MG PO BEDTIME sodium chloride 0.9% FLUSH 10 ML IV PUSH PRN for FLUSH IV LINE sodium chloride 0.9% FLUSH 10 ML IV PUSH Q8HWA Review of Systems Narrative Negative except what was mentioned in HPI Vital Signs 0812 BP 136 0700 HR 87 RR 17 BP 120 / 58 (L) O2Sat 93 0600 HR 87 RR 20 BP 61 O2Sat 94 0440 T 97.3 (L) 2357 T 97.6 (L) 2 of 4 Consult History and Physical [facility] Name Pierre Khalil Date of Service 1545 [id number] (M) Attending YIMI Barba Admitted [id number] Discharged Primary LILA Garza Intake and Output previous current encounter day day cumulative Intake 1021.8 90.2 1112 Output 2510 - 3960 Balanc (-1488.2) 90.2 (-2848) Physical Exam General Awake, Alert, Oriented to person, Oriented to place, Oriented to time Respiratory Bilateral Wheezing, Rhonchi Cardiovascular Heart Rhythm Regular Abdomen Distention Abdomen is distended and very tight /Male Penile swelling, Edema of scrotum Scrotum severly edematous, weeping, has several weeping wounds on base of scrotum Peripheral Vascular/Extremities Pt has moderate swelling in upper and lower extremties. Pt is weeping in the uppere and lower extremities Lab Results 0800 Bedside Testing GLUMETER 267 (H) 0612 Bedside Testing GLUMETER 263 (H) 0430 Chemistry NA 138 K 4.1 CHLORIDE 103 CO2 31.5 AGAP 7.6 GLUC 281 (H) BUN 27 (H) CREAT 1.8 (H) GFR 42 (L) TP 6.5 ALB 2.8 (L) GLOB 3.7 ALB/GLOB 0.8 CALCIUM 8.6 BILI TOT 0.90 AST 9 ALT 8 ALP 77 0430 Troponins TROP FU 12 0430 Hematology WBC 6.3 RBCS 3.8 (L) HGB 10.6 (L) HCT 36.1 (L) MCV 96.0 MCH 28.2 MCHC 29.4 (L) RDW 15.5 (H) PLT S 144 (L) NEUT% 70.0 (H) LYMPH% 16.6 (L) MONO% 10.9 EOS% 1.9 BASO% 0.6 NEUT# 4.4 LYMPH# 1.1 (L) MONO# 0.7 EOS# 0.1 BASO# 0.0 MANDIFF No 194 3 of 4 Consult History and Physical [facility] Name Pierre Khalil Date of Service 154 [id number] (M) Attending YIMI Barba Admitted [id number] Discharged Primary LILA Garza Bedside Testing GLUMETER 214 (H) 1704 Bedside Testing GLUMETER 199 (H) 1347 Us Ultrasound U9ASC 1128 Bedside Testing GLUMETER 166 (H) Procedures and Surgeries None Assessment/Plan Pt has multiple chronic medical conditions with noncompliance. According to pt he is up approx 40lb with evidence of ascites that is causing scrotal and penile swelling. Continue IV rocephin, await urine culture results. Continue stewart cath. Will continue to follow pt If pt needs aggressive therapy e.g. debridement would need to be done at a teritary facility. Pts code status is DNR Electronically signed by MAX CALHOUN on 1441 I hereby attest the note that was written on this patient accurately reflects the notations made when patient was examined. Electronically signed by THANH IRBY on 1144 4 of 4 CC'ed Logic: Ordering Provider: MAX CHEW Consulting Provider: THANH Mccallum, METEOROLOGY TEACHER, [address] [facility], [place], [address], [facility] & [place] 01/09/2023 09:01:55 Procedures Surgical History Date Name Laterality Status Provider Name and Address Organization Details Recorded Time 9 closure of amputation stump of right below knee amputation completed Mary Moreau [facility] & [place] 11/21/2022 16:22:35 Imaging Results None recorded. Procedure Notes None recorded. Medical Equipment None Reported. Allergies Allergen ID Allergen Name Allergen Category Reaction Reaction Severity Criticality Documentation Date Start Date Code Code System Note Provider Name and Address Organization Details Recorded Time 09242 No known allergy (situatio n) Not available Not available Not available Not available 11/21/2022 73133 6003 SNOMED Mary Moreau [facility] & [place] 3 16:06:52 53809 Actos medicatio n edema Not available Not available 11/21/2022 10904 2 RxNorm Not Available [facility] 10:[facility] Medications Name Sig Start Date Stop Date Status Note LastModified by Organization Details LastModified Time cyclobenzap rine 10 mg tablet 10 mg by oral route. 01/24 completed Not Available Not Available Not Available furosemide 40 mg tablet 40 mg by oral route. active Not Available Not Available No t Available pioglitazon e 15 mg tablet Take 30 mg by oral route. 11/21 completed Not Available Not Available Not Available furosemide 10 mg/mL injection solution 40 mg by injection route. 12/26 completed Not Available Not Available Not Available diltiazem 5 mg/mL intravenous solution 125 mg by intraven. route. 11/02 completed Not Available Not Available Not Available Topamax 25 mg tablet 20 mg by oral route. active Not Available Not Available No t Available amiodarone 200 mg tablet 400 mg by oral route. active Not Available Not Available No t Available lorazepam 2 mg/mL injection solution 2 mg by injection route. 12/26 completed Not Available Not Available Not Available lisinopril 20 mg tablet Take 20 mg by oral route. 11/21 completed Not Available Not Available Not Available clonazepam 0.5 mg tablet 0.5 mg by oral route. active Not Available Not Available No t Available Children's Aspirin 81 mg chewable tablet 81 mg by oral route. active Not Available Not Available No t Available hydrocodone 10 mg-acetamin ophen 325 mg tablet 1 tablet by oral route. 01/05 completed Not Available Not Available Not Available acetaminoph en 500 mg tablet 1000 mg by oral route. 11/06 completed Not Available Not Available Not Available spironolact one 25 mg tablet Take 50 mg by oral route. 11/21 completed Not Available Not Available Not Available simvastatin 40 mg tablet 40 mg by oral route. 01/24 completed Not Available Not Available Not Available ceftriaxone 1 gram solution for injection 1 g by injection route. 12/26 completed Not Available Not Available Not Available famotidine 20 mg tablet 20 mg by oral route. active Not Available Not Available No t Available pravastatin 80 mg tablet 80 mg by oral route. active Not Available Not Available No t Available Protonix 40 mg intravenous solution 40 mg by intraven. route. 11/06 completed Not Available Not Available Not Available tamsulosin 0.4 mg capsule 0.4 mg by oral route. active Not Available Not Available No t Available Humalog U-100 Insulin 100 unit/mL subcutaneou s solution 100 unts by sub-q route. 11/02 completed Not Available Not Available Not Available dextrose 5 % and 0.9 % sodium chloride intravenous solution 1000 mL by intraven. route. 11/02 completed Not Available Not Available Not Available pantoprazol e 40 mg tablet,maría yed release 40 mg by oral route. 01/24 completed Not Available Not Available Not Available simvastatin 20 mg tablet 40 mg by oral route. 11/063 completed Not Available Not Available Not Available gabapentin 300 mg capsule 300 mg by oral route. active Not Available Not Available No t Available hydrochloro thiazide 25 mg tablet Take 50 mg by oral route. 11/21 completed Not Available Not Available Not Available sodium chloride 0.9 % intravenous solution 1000 mL by intraven. route. 11/02 completed Not Available Not Available Not Available nystatin 100,000 unit/gram topical powder 1 betzaida by topical route. active Not Available Not Available No t Available sodium ferric gluconate complex in sucrose 62.5 mg/5 mL intravenous 125 mg by intraven. route. 11/04 completed Not Available Not Available Not Available amiodarone 50 mg/mL intravenous solution 150 mg by intraven. route. 11/02 completed Not Available Not Available Not Available heparin (porcine) 5,000 unit/mL injection solution 5000 unts by injection route. 12/26 completed Not Available Not Available Not Available metoprolol tartrate 5 mg/5 mL intravenous solution 5 mg by intraven. route. 11/02 completed Not Available Not Available Not Available diltiazem 90 mg tablet TAKE 1 TABLET THREE TIMES DAILY 2022 active Not Available Not Available Not Avai lable AlbuRx (Human) 25 % intravenous solution 100 mL by intraven. route. 01/26 completed Not Available Not Available Not Available Levophed 1 mg/mL intravenous solution 4 mg by intraven. route. 11/02 completed Not Available Not Available Not Available dextrose 5 % in water (D5W) intravenous solution 250 mL by intraven. route. 11/02 completed Not Available Not Available Not Available dextrose 10 % in water (D10W) intravenous solution 250 mL by intraven. route. 11/06 completed Not Available Not Available Not Available sodium chloride 0.9 % intravenous piggyback 100 mL by intraven. route. 12/26 completed Not Available Not Available Not Available heparin (porcine) 25,000 unit/250 mL (100 unit/mL) in dextrose 5 % [place] [address]683 unts by intraven. route. 11/02 completed Not Available Not Available Not Available Januvia 25 mg tablet 25 mg by oral route. 2022 active Not Available Not Available Not Avai lable ondansetron HCl (PF) 4 mg/2 mL injection solution 4 mg by injection route. 11/06 completed Not Available Not Available Not Available BD PosiFlush Normal Saline 0.9 % injection syringe 10 mL by injection route. 01/25 completed Not Available Not Available Not Available magnesium sulfate 2 gram/50 mL (4 %) in water intravenous piggyback 2 g by intraven. route. 11/02 completed Not Available Not Available Not Available Humalog KwikPen (U-100) Insulin 100 unit/mL subcutaneou s 1 unt by sub-q route. 01/25 completed Not Available Not Available Not Available magnesium sulfate 1 gram/100 mL in dextrose 5 % intravenous piggyback 1 g by intraven. route. 11/02 completed Not Available Not Available Not Available lidocaine 2 % mucosal jelly in applicator 10 mL by mucous mem route. 12/25 completed Not Available Not Available Not Available Optison 0.22 mg/mL intravenous suspension 3 mL by intraven. route. 11/02 completed Not Available Not Available Not Available HealthyLax 17 gram oral powder packet 17 g by oral route. 12/27 completed Not Available Not Available Not Available Pro-Stat Sugar Free 15 gram-100 kcal/30 mL oral liquid in packet 30 mL by oral route. 01/26 completed Not Available Not Available Not Available Eliquis 5 mg tablet 5 mg by oral route. active Not Available Not Available No t Available Probiotic (S.boulardi i) 250 mg capsule 250 mg by oral route. 01/25 completed Not Available Not Available Not Available Retacrit 10,000 unit/mL injection solution 64361 unts by injection route. 11/01 completed Not Available Not Available Not Available insulin glargine-yf gn (U-100) 100 unit/mL (3 mL) subcutaneou s pen 50 unts by sub-q route. active Not Available Not Available No t Available Vitals Date Recorded Body height Body mass index (BMI) Body weight Oxygen saturation Oxygen saturation in Arterial blood by Pulse oximetry Heart rate Systolic And Diastolic Provider Name and Address Organization Details Last Updated DateTime 3 190.5 cm 44 kg/m2 738142. 51 g 93 % 93 % 83 /min 112/54 mm[Hg] [facility] [place] 16:05:03 Social History Question Answer Notes LastModified by Organizat ion Details LastModified Time Tobacco Smoking Status Current Some Day Smoker Mary Moreau [facility], [facility] & [place] 11/21/2022 16:16:35 Are You Blind Or Do You Have Difficulty Seeing? No [email or web address] Information not available 11/21/2022 What Is Your Level Of Caffeine Consumption? Occasional [email or web address] Information not available 11/21/2022 Are You Deaf Or Do You Have Serious Difficulty Hearing? No [email or web address] Information not available 11/21/2022 What Type Of Diet Are You Following? DIABETIC [email or web address] Information not available 11/21/2022 How Many Days Of Moderate To Strenuous Exercise, Like A Brisk Walk, Did You Do In The Last 7 Days? 0 [email or web address] Information not available 11/21/2022 Have There Been Any Changes To Your Family Or Social Situation? No [email or web address] Information not available 11/21/2022 What Is The Fluoride Status Of Your Home? Unknown [email or web address] Information not available 11/21/2022 Are There Any Guns Present In Your Home? No Information not available 11/21/2022 Do You Use Insect Repellent Routinely? No [email or web address] Information not available 11/21/2022 What Was The Date Of Your Most Recent Tobacco Screening? 11/21/2022 [email or web address] Information not available 11/21/2022 What Is Your Current Pack Years? 30ormzhane brunson Information not available 11/21/2022 Do You Have Any Pets? Yes [email or web address] Information not available 11/21/2022 Do You Have Smoke And Carbon Monoxide Detectors In Your Home? Yes [email or web address] Information not available 11/21/2022 At What Age Did You Start Smoking Tobacco? 14 [email or web address] Information not available 11/21/2022 Are You Passively Exposed To Smoke? Yes [email or web address] Information not available 11/21/2022 How Much Tobacco Do You Smoke? 2 PPD [email or web address] Information not available 11/21/2022 What Types Of Sporting Activities Do You Participate In? 0 [email or web address] Information not available 11/21/2022 Do You Use Sunscreen Routinely? No [email or web address] Information not available 11/21/2022 Has Tobacco Cessation Counseling Been Provided? Yes [email or web address] Information not available 11/21/2022 On What Date Was Tobacco Cessation Counseling Provided? 11/20/2022 [email or web address] Information not available 11/21/2022 How Many Years Have You Smoked Tobacco? 40 [email or web address] Information not available 11/21/2022 Do You Have Difficulty Walking Or Climbing Stairs? Yes [email or web address] Information not available 11/21/2022 Sex: Unknown Functional Status Question Answer Note LastModified by Organizat ion Details LastModified Time Do you use any illicit or recreational drugs? No Information not available 11/21/2022 Do you or have you ever used any other forms of tobacco or nicotine? Yes chew [email or web address] Information not available 11/21/2022 What is your level of alcohol consumption? None [email or web address] Information not available 11/21/2022 Do you or have you ever used smokeless tobacco? Currently chews tobacco [email or web address] Information not available 11/21/2022 Do you have transportation difficulties? No [email or web address] Information not available 11/21/2022 Are you able to walk? YESLIMIT [email or web address] Information not available 11/21/2022 Do you have difficulty doing errands alone? No [email or web address] Information not available 11/21/2022 Are you able to care for yourself? Yes [email or web address] Information n ot available 11/21/2022 Do you have difficulty dressing or bathing? No [email or web address] Information not available 11/21/2022 Do you or have you ever used e-cigarettes or vape? Current user of electronic cigarettes [email or web address] Information not available 11/21/2022 What is your exercise level? None [email or web address] Information not available 11/21/2022 Mental Status Question Answer Note LastModified by Organization D etails LastModified Time Do you have difficulty concentrating, remembering or making decisions? No [email or web address] Information no t available 11/21/2022 Family History Nothing Reported. Medical History Condition Response Weight loss or gain Y Swelling Y Chest Pain N Shortness of Breath Y Dizziness or Fainting N Past Encounters Encounter ID Performer Location Encounter Start Date Encounter Closed Date Diagnosis/Indication Diagnosis SNOMED-CT Code Diagnosis ICD10 Code Diagnosis Note [id number] TITO JENSEN NP-C [facility] [address] [facility] [address] [place] [address] 11/21/2022 15:25:26 11/21/2022 17:02:52 Paroxysmal atrial fibrillation 139115320 I48.0 Cigarette smoker 2640718 7 F17.210 Chronic ki dney disease 059973298 I12.0 N18.9 Sees nephrology at [facility] Dominique MD Diabetic ketoacidosis 42 4766539 E13.10 PCP manages Health Concerns Section Related Observation LastModified by Organization Detai ls LastModified Time None Recorded Concern Status LastModified by Organization Details LastModified Time None Recorded Advance Directives Directive None Recorded Payers Insurance Date Sequence Insurance Name Policy Number Policy Garcia Covered Member ID Garcia Member ID Guarantor Name 03/01/2024 1 [employer] (MEDICARE REPLACEMENT/ ADVANTAGE - PPO) Chaitanyashant Khalil [id number] Pierre Khalil 04/23/2024 2 [place] [employer] - FFS/TRADITIO NAL Pierre Khalil [id number] Pierre Khalil Notes Date Note Type Note Provider Name and Address Organization Details Recorded Time 11/21/2022 text/html Patient is a pleasant 57 year old here as a new patient hospital follow up. He was noted to have afib with renal failure. Initially he had hyperglycemia. EKG today shows SR. 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 He denies any CP, pre-syncope, or syncope. He continues to have dyspnea that is stable. He has LIBERTY that has improved on Torsemide 20mg 2 tablets daily. Patient is a smoker. D/C advised. He has a significant other who helps with his medications and taking him to appointments. Patient has wounds on his lower extremities that his PCP manages. He also has coexisting diabetes mellitis. PCP: Dr. Torres ([place]) ECHO 11/02/22 Normal EF 75-80% with moderate concentric LVH. He had labs with his PCP 11/20/22 BUN 30 Creat 1.40 TITO JENSEN, METEOROLOGY TEACHER-C [address], [place], [address], [facility] - [place] & [place] 11/21/2022 17:25:10
--- OUTSIDE RECORDS SUMMARY | 2025-02-18 16:08 | XMS_ITS | Clinical Summary ---
Author Organization [facility] Address [address] [place] [address] Phone Care Team Providers Care Agriculture Technician Name Role Phone Unavailable Unavailable Conditions or Problems No information available. Medications No information available. Medications Administered No information available. Allergies, Adverse Reactions, Alerts No information available. Results No information available. Plan of Care No information available. Procedures No information available. Vital Signs No information available. Immunizations No information available. Advance Directives No information available.
[2025-02-18 16:17] VITALS: BP 000/00; PULSE 0; RESP 0; TEMP -17.7; TEMP 0; O2SAT 0
--- NOTE | 2025-02-18 16:19 | HMH.EDGENADL ---
Discharge Plan Disposition Patient Disposition: Clinical Impressions Clinical Impression: Cardiopulmonary arrest, History of chronic CHF, Hyperglycemia, Hyperkalemia, Acidosis Discharge ED Provider: Chiki Mcdowell Adult HPI General Stated complaint: Code Time Seen by Provider: 02/18/25 16:19 Mode of Arrival: EMS Source of Information: EMS History of Present Illness HPI narrative: Pierre Khalil is a 59y male with a history of IDDM, CKD, HTN, obesity who presents to the emergency department as a CODE BLUE. Per EMS, patient was outside working when he developed shortness of breath and felt like he was having an issue with his diabetes. Patient was 20 minutes out from the EMS station and when they arrived, they state that he was alert and talking to them but diaphoretic and had and was hypoxic to 88% SpO2. He was put on oxygen. He had an episode where he passed out and had a 4-lead placed that showed concern for an idioventricular rhythm. He was brought into the ambulance and lost a pulse 20 minutes prior to arrival. He received 3 doses of IV epinephrine and route with continuous CPR. An Igel was placed. They report patient has significant amount of comorbidities. Glucose and route was 245. Patient is receiving chest compressions upon arrival to the emergency department. Per EMS, once they lost pulses, patient was asystole with every pulse check. Related Data Home Medications ?Medication ?Instructions ?Recorded ?Confirmed sodium,potassium,mag sulfates 17.5 177 ml PO DAILY Supplement 08/20/18 11/26/24 gram-3.13 gram-1.6 gram oral soln Previous Rx's ?Medication ?Instructions ?Recorded ipratropium bromide 0.02 % See Rx Instructions .Route 05/30/24 solution for inhalation .COMPLEX #360 ea nitrofurantoin 100 mg PO BID #14 caps 09/01/24 monohydrate/macrocrystals 100 mg capsule (Macrobid) furosemide 80 mg tablet 80 mg PO TID #270 tabs 10/02/24 lisinopril 20 mg tablet See Rx Instructions .Route 10/14/24 .COMPLEX #90 tabs omeprazole 20 mg capsule,delayed See Rx Instructions .Route 10/14/24 release .COMPLEX #90 caps amiodarone 200 mg tablet 200 mg PO DAILY #90 tabs 10/17/24 apixaban 5 mg tablet (Eliquis) 5 mg PO BID #180 tabs 10/17/24 blood-glucose sensor (Dexcom G7 #9 ea 10/17/24 Sensor device) fluticasone 100 mcg-salmeterol 50 See Rx Instructions .Route 10/17/24 mcg/dose blistr powdr for .COMPLEX #180 blisters inhalation insulin syringe-needle U-100 1 mL #300 ea 10/17/24 30 gauge x 1/2 (BD Insulin Syringe Ultra-Fine) lactulose 10 gram/15 mL oral See Rx Instructions .Route 10/17/24 solution .COMPLEX #1,350 mL potassium chloride 20 mEq 20 meq PO BID #180 tabs 10/17/24 tablet,extended release pravastatin 80 mg tablet 80 mg PO DAILY choleserol #90 tabs 10/17/24 semaglutide 2 mg/dose (8 mg/3 mL) See Rx Instructions .Route 10/17/24 subcutaneous pen injector ([email or web address]) .COMPLEX #9 ea spironolactone 50 mg tablet See Rx Instructions .Route 10/17/24 .COMPLEX #90 tabs diclofenac sodium 1 % topical gel 2 g topical QID PRN pain #100 grams 11/06/24 (Arthritis Pain (diclofenac)) diltiazem HCl 90 mg tablet See Rx Instructions .Route 12/10/24 .COMPLEX #270 tabs insulin glargine 100 unit/mL 125 unit (1.25 mL) SQ .COMPLEX 12/12/24 subcutaneous solution (Lantus #180 mL U-100 Insulin) cyclobenzaprine 10 mg tablet See Rx Instructions .Route 12/26/24 .COMPLEX #90 tabs insulin lispro 100 unit/mL 100 sliding scale dose SQ BID #600 12/26/24 subcutaneous solution (Humalog mL U-100 Insulin) metformin 1,000 mg tablet 1,000 mg PO DAILY #90 tabs 12/26/24 tamsulosin 0.4 mg capsule See Rx Instructions .Route 12/26/24 .COMPLEX #90 caps clonazepam 0.5 mg tablet 0.5 mg PO HS #30 tabs 02/09/25 gabapentin 600 mg tablet 600 mg PO QID #120 tabs 02/09/25 hydrocodone 10 mg-acetaminophen 1 tab PO QID PRN pain #120 tabs 02/09/25 325 mg tablet Allergies Allergy/AdvReac Type Severity Reaction Status Date / Time No Known Allergies Allergy Verified 11/26/24 09:58 [facility] Disclaimer: The information contained in this section may have been updated after the patient was seen, as this information can be updated by other users. Social History Smoking Status: Current every day smoker alcohol intake: never substance use type: denies use current occupational status: unemployed Travel in the last 8 weeks?: None caffeine: No Have you lived/traveled outside US in past 30 days?: No Contact w/someone who lives/traveled outside US past 30 days?: No Exposure to someone with infectious disease in past 14 days?: No Do you have a fever (greater than 100.4 F or 38 C)?: No Have you tested positive for COVID-19?: No Exposed to someone with COVID-19 in past 14 days?: No Do you have a sore throat?: No Do you have a cough?: No Do you have any weakness?: No Do you have any diarrhea?: No Are you experiencing any unusual bleeding?: No Do you have any muscle aches/pain?: No Do you have any abdominal pain?: No Are you experiencing loss of taste or smell?: No Other Medical History Have you received the Flu Vaccine for this season: No Have you received the Pneumonia Vaccine: Yes ROS Obtained: Yes unobtainable due to endotracheal tube Physical Exam General General appearance: other (Unresponsive) Comment: Unresponsive Respiratory Respiratory exam: Present other (Igel in place. 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 Kyrie Inquiry Pt receiving controlled substance: No Lab Data Lab Results 02/18/25 16:00: VBG pH 6.86 L, VBG pCO2 60.8 H, VBG pO2 31.6, VBG HCO3 10.6 L, VBG Total CO2 12.5 L, VBG O2 Saturation 40.3 L, VBG Base Excess -22.9 L, VBG Lactic Acid 6.9 H Orders (Tests/Meds): ORDERS Category Date Time Status VBG [Venous Blood Gas] Stat RT 02/18/25 16:00 Completed Medical Decision Narrative: Pierre Khalil is a 59y male with a history of IDDM, CKD, HTN, obesity who presents to the emergency department as a CODE BLUE. Per EMS, patient was outside working when he developed shortness of breath and felt like he was having an issue with his diabetes. Patient was 20 minutes out from the EMS station and when they arrived, they state that he was alert and talking to them but diaphoretic and had and was hypoxic to 88% SpO2. He was put on oxygen. He had an episode where he passed out and had a 4-lead placed that showed concern for an idioventricular rhythm. He was brought into the ambulance and lost a pulse 20 minutes prior to arrival. He received 3 doses of IV epinephrine and route with continuous CPR. An Igel was placed. They report patient has significant amount of comorbidities. Glucose and route was 245. Patient is receiving chest compressions upon arrival to the emergency department. Patient was in asystole with every pulse check en route once he began coding in the ambulance. On arrival, CPR in place, patient lost IV access when transferring to the stretcher. A left tibial IO was placed. I gel in place with bag valve ventilation in process. Patient was placed on the hotel or motel manager and CPR was continued. Initial pulse check, patient was in asystole with no palpable pulses. Chest compressions were resumed. Code dose epinephrine was given in 3 to 5-minute intervals per ACLS protocol. A left 18-gauge IV was placed. An amp of bicarb was given as well. Patient received IV calcium gluconate. Patient's Igel was replaced with 7.5 ET tube without RSI medications. Bilateral breath sounds were present. Inkav-xy-oyov ultrasound showed no pericardial effusion. Lung sliding was present bilaterally. ACLS protocol was followed and with every pulse check, patient was in asystole without palpable pulses. Patient had no improvement in capnography. Patient ultimately received subsequent rounds of code dose epinephrine, additional bicarb, 2 g IV magnesium sulfate. [id number] VBG showed pH of 6.8, bicarb of 10, potassium of 6.5. lactate of 6.9. Patient had a liter of IV fluids started with EMS that was continued. Patient's glucose was over 300. Patient received 10u IV insulin ACLS was continued for additional 20 minutes after arrival with asystole on the monitor with every pulse and rhythm check. Given that there are no other identifiable reversible causes, and the fact the patient has been in asystole for approximately 40 minutes at this time, it is felt that resuscitation efforts are futile and time of was called at 1617. Procedures Intubation Mallampati Score:: Class III Time out performed: No sedative: none paralytic: other (none) Laryngoscope: Melany ET Tube Size: 7.5 ET Tube Uncuffed: No Tube Secured Depth (cm): 22 Tube Secured Location: lips Tube Placement Confirmation: visualized tube passing through cords, equal breath sounds bilaterally and no breath sounds over epigastrium Patient Tolerated Procedure: no complications Intubation Complications: none IO Left Tibia: Time Out Performed: No IO Instrument Used to Penetrate the Cortex: battery powered IO drill Patient Tolerated Procedure: no complications Complications: none Critical Care Critical Care Time Critical Care Time: Yes Attestation: On 02/18/25, the high probability of a clinically significant, sudden or life threatening deterioration of the following system(s) required my full and direct attention, intervention and personal management. The time I documented below is in addition to time spent performing reported procedures but includes the following listed in this critical care notation. Total Time Total Critical Care Time: 35
--- NOTE | 2025-02-18 16:24 | PC.NURSE ---
Psychiatry Instructor called thru dispatch to let them know we needed them in the ER
--- NOTE | 2025-02-18 16:39 | PC.NURSE ---
SPEAKING WITH [facility]
[2025-02-18 16:42] LABS: VBG HCO3 10.6 mmol/L (23-30); VBG PCO2 60.8 mmol/L (35-51); VBG PH 6.86 mmol/L (7.31-7.41); VBG PO2 31.6 mmol/L (28-40)
[2025-02-18 16:43] LABS: Lactate Venous 6.9 mmol/L (0.4-2.0)
--- NOTE | 2025-02-18 17:04 | PC.NURSE ---
1556: PAT[facility] WITH CPR [facility] REPORT: PATIENT WAS A WITNESSED ARREST AROUND 1540. IDIOVENTRICULAR RHYTHM REPORTED PER EMS. EPINEPHRINE 1MG X 3 DOSES HAD BEEN ADMINISTERED PRIOR TO ARRIVAL WITH LAST DOSE GIVEN AT 1553. #18 G TO LAC WITH IVF INFUSING. UPON TRANSFER TO [facility] IV SITE BECAME DISLODGED. EMS FSBS: 247 1557: PATIENT MOVED TO ED STRETCH AND [facility] ED STAFF ASSUMED CARE OF PATIENT. 1559: 15G IO INSERTED IN THE LEFT TIBIA PER MYSELF. 1 LITER OF NS HUNG AT A WIDE OPEN RATE PER Daryl KAUFFMAN RN EPINEPHRINE 1MG IVP GIVEN PER [employer] 1600: SODIUM BICARB 1 AMP GIVEN PER [employer] 1601: RHYTHM CHECK: ASYSTOLE, NO PULSE PALPATED, RESUMED CPR #18 G IV INSERTED TO RAC PER Margie DELGADILLO RN 1602: FSBS: 312 1603: EPINEPHRINE 1MG IVP GIVEN PER [employer] PATIENT INTUBATED PER DR. FISHER WITH 7.5 ETT, 22 AT THE LIP. BILATERAL BREATH SOUNDS AUSCULTATED AND COLOR CHANGE NOTED ON CO2 DETECTOR. 1604: RHYTHM CHECK: ASYSTOLE, NO PULSE PALPATED, RESUMED CPR 1606: EPINEPHRINE 1MG IVP GIVEN PER [employer] 1607: RHYTHM CHECK: ASYSTOLE, NO PULSE PALPATED, RESUMED CPR 1608: CALCIUM CHLORIDE 1G IVP GIVEN PER [employer] 1609: END TIDAL: 23 1610: RHYTHM CHECK: ASYSTOLE, NO PULSE PALPATED, RESUMED CPR SODIUM BICARB 1 AMP GIVEN PER [employer] 1611: EPINEPHRINE 1MG IVP GIVEN PER [employer] CARDIAC U/S PERFORMED PER DR. FISHER - NO S/S OF CARDIAC TAMPONADE 1612: RHYTHM CHECK: ASYSTOLE, NO PULSE PALPATED, RESUMED CPR 1613: 2GRAMS OF MAGNESIUM IVP PER [employer] 1614: 10 UNITS OF REGULAR INSULIN IVP ADMINISTERED PER MYSELF. VIAL AND DOSE VERIFIED WITH [employer] PRIOR TO ADMINISTRATION. 1615: RHYTHM CHECK: ASYSTOLE, NO PULSE PALPATED, RESUMED CPR EPINEPHRINE 1MG IVP GIVEN PER [employer] 1617: RHYTHM CHECK: ASYSTOLE, NO PULSE PALPATED. TIME OF . 1624: KEYANNA ERICKSON, HOME DEPOT REP, NOTIFIED PATIENT HAD . 1629: [facility] NOTIFIED OF PATIENT'S . GRABIEL ID# [id number]. REPORTED THEY WOULD CALL BACK. REPORTED PATIENT WAS RELEASED FOR POST MORTEM CARE. STAFF AT BEDSIDE PERFORMING POST MORTEM CARE.
--- NOTE | 2025-02-18 17:23 | PC.NURSE ---
AUTO PULSE WAS NOT USED DUE TO GIRTH OF PATIENT'S CHEST.
--- NOTE | 2025-02-18 17:39 | PC.NURSE ---
Patients family has been in the room with him for about 15 minutes.
--- NOTE | 2025-02-18 17:45 | PC.NURSE ---
1740: SPOKE WITH [facility] TO NOTIFY THEM THAT THE VOCATIONAL ADVISER HAS RELEASED THE PATIENT TO [facility]. INQUIRED ABOUT AN UPDATE TO SEE IF PATIENT WOULD BE A CANDIDATE FOR ORGAN DONATION. I INFORMED THEM BROTHER WAS AT BEDSIDE IF THEY WANTED TO APPROACH. THEY STATED THEY WOULD CALL BACK.
--- NOTE | 2025-02-18 17:59 | PC.NURSE ---
[facility] called back and spoke with the next of Kin Robson Kahlil. Robson declined donation and [facility] said the hospital could release the body to [facility] home.
--- NOTE | 2025-02-18 18:02 | PC.NURSE ---
Cheyenne Miles called and made contact with Robin to come and pick up driver the body
--- NOTE | 2025-02-18 18:03 | PC.NURSE ---
Spoke with Yoli at [facility].
--- NOTE | 2025-02-18 18:13 | PC.NURSE ---
Tom from [facility] just called to let us know that he would be here in about 30-45 minutes.
[2025-02-18 20:06] LABS: Reflex Lactic Add Lactic Reflex
== END 2025-02-18 16:19 | disposition expired ==
PROVIDERS: Emergency Provider Student in an Organized Health Care Education/Training Program
DX: I46.9 Cardiac arrest, cause unspecified (principal)
CPT/HCPCS: 31500; 82803; 92950; 99291; J0169; J3475; J7030